=== PATIENT | male | born 1950 | race Caucasian/White ===

== ENCOUNTER 2017-09-24 15:55 | Inpatient (IN) | payer MEDICARE, OTHER ==
[~2017-09-24] VITALS: Ht 180.3 cm; Wt 104.1 kg
[2017-09-24 16:02] VITALS: BP 85/56; PULSE 80; RESP 20; TEMP 97.4; O2SAT 94
[2017-09-24] MEDS ORDERED: SODIUM CHLOR 0.9% 1000 ML INJ 1,000 ML IV SCH (16:27)
[2017-09-24] MEDS ORDERED: CETI10CH CHEW (16:29)
[2017-09-24] MEDS ORDERED: ASPI81CH6 PO (16:29)
[2017-09-24] MEDS ORDERED: ZOFR4TAB3 SL (16:29)
[2017-09-24] MEDS ORDERED: PARO20TA2 PO (16:29)
[2017-09-24] MEDS ORDERED: DONE10TA7 PO (16:29)
[2017-09-24] MEDS ORDERED: ATOR10TA15 PO (16:29)
[2017-09-24] MEDS ORDERED: VALS160T4 PO (16:29)
[2017-09-24] MEDS ORDERED: COQ-30CA2 PO (16:29)
[2017-09-24] MEDS ORDERED: PANTOPRAZOLE SODIUM 40 MG VIAL IVP ONE (16:30)
[2017-09-24] MEDS ORDERED: ONDANSETRON HCL 4 MG/2 ML VIAL IVP ONE (16:30)
[2017-09-24] MEDS ORDERED: SODIUM CHLORIDE 0.9% FLUSH 10 ML FLUSH IV FLUSH PRN ×2 (16:30→20:00)
[2017-09-24 16:40] VITALS: O2SAT 95
[2017-09-24 16:45] LABS: AUTOMATED NEUTROPHIL # 9.3 TH/MM3 (1.8-7.7); BASOPHIL # 0.2 TH/MM3 (0-0.2); BASOPHIL % 1.7 % (0.0-2.0); EOSINOPHIL # 0.1 TH/MM3 (0-0.4); EOSINOPHIL % 0.6 % (0.0-4.0); HEMATOCRIT 51.9 % (39.0-51.0); HEMOGLOBIN 17.2 GM/DL (13.0-17.0); LYMPH % 11.4 % (9.0-44.0); LYMPHOCYTE # 1.4 TH/MM3 (1.0-4.8); MEAN CORPUSCULAR HEMOGLOBIN 31.5 PG (27.0-34.0); MEAN CORPUSCULAR HGB CONC 33.1 % (32.0-36.0); MEAN PLATELET VOLUME 8.6 FL (7.0-11.0); MONO % 11.1 % (0.0-8.0); MONOCYTE # 1.4 TH/MM3 (0-0.9); NEUT % 75.2 % (16.0-70.0); PLATELET COUNT 218 TH/MM3 (150-450); RED BLOOD COUNT 5.46 MIL/MM3 (4.50-5.90); RED CELL DISTRIBUTION WIDTH 13.3 % (11.6-17.2); WHITE BLOOD COUNT 12.4 TH/MM3 (4.0-11.0)
[2017-09-24 16:53] LABS: CHLORIDE 95 MEQ/L (98-107); SODIUM (NA) 135 MEQ/L (136-145)
[2017-09-24 16:56] LABS: CALCIUM 9.1 MG/DL (8.5-10.1); INTERNATIONAL NORMALIZED RATIO 1.1 RATIO
[2017-09-24 16:57] LABS: BICARBONATE 30.1 MEQ/L (21.0-32.0); BLOOD UREA NITROGEN 33 MG/DL (7-18); GLUCOSE,RANDOM 151 MG/DL (74-106)
[2017-09-24 17:00] LABS: ALT (GPT) 53 U/L (12-78); AST (GOT) 30 U/L (15-37); GLOMERULAR FILTRATION RATE 24 ML/MIN (>89)
[2017-09-24 17:01] LABS: TOTAL BILIRUBIN ADULT 0.9 MG/DL (0.2-1.0); TOTAL PROTEIN 8.6 GM/DL (6.4-8.2)
[2017-09-24 17:03] LABS: ALKALINE PHOSPHATASE 85 U/L (45-117)
[2017-09-24 17:15] VITALS: BP 92/60; PULSE 81; RESP 14; O2SAT 94
--- NOTE | 2017-09-24 17:59 | RADRPT ---
EXAM DATE/TIME: 09/24/2017 17:38 [place] COMPARISON: No previous studies available for comparison. INDICATIONS : Diffuse abdominal pain. Nausea, vomiting and diarrhea. ORAL CONTRAST: No oral contrast ingested. RADIATION DOSE: 20.90 CTDIvol (mGy) MEDICAL HISTORY : Dementia. Hypertension. SURGICAL HISTORY : None. ENCOUNTER: Initial ACUITY: 4 - 6 days PAIN SCALE: 5/10 LOCATION: Diffuse abdomen. TECHNIQUE: Volumetric scanning of the abdomen and pelvis was performed. Using automated exposure control and ad justment of the mA and/or kV according to patient size, radiation dose was kept as low as reasonably achievable to obtain optimal diagnostic quality images. DICOM format image data is available electro nically for review and comparison. FINDINGS: LOWER LUNGS: The visualized lower lungs are clear. LIVER: Homogeneous density without lesion. There is no dilation of the biliary tree. No calcified gallston es. SPLEEN: Normal size without lesion. PANCREAS: Within normal limits. KIDNEYS: Normal in size and shape. There is no mass, stone, or hydronephrosis. ADRENAL GLANDS: Within normal limits. VASCULAR: There is no aortic aneurysm. BOWEL/MESENTERY: The stomach, small bowel, and colon demonstrate no acute abnormality. There is no free intraperitone al air or fluid. Some fluid lot filled loops of without evidence of wall thickening or obstruction ABDOMINAL WALL: Within normal limits. RETROPERITONEUM: There is no lymphadenopathy. BLADDER: No wall thickening or mass. REPRODUCTIVE: Within normal limits. INGUINAL: There is no lymphadenopathy or hernia. MUSCULOSKELETAL: Within normal limits for patient age. CONCLUSION: Fluid-filled loops of small bowel without evidence of obstructing mass. No obvious wall thickening or pneumatosis. A few benign-appearing cysts in the liver. Joe Salcedo MD on September 24, 2017 at 17:55 Board Certified Radiologist. This report was verified electronically.
[2017-09-24] MEDS ORDERED: METOCLOPRAMIDE INJ 10 MG in SODIUM CHLORIDE 0.9% INJ 50 ML IV ONE (18:15)
[2017-09-24] MEDS ORDERED: SODIUM CHLOR 0.9% 1000 ML INJ 1,000 ML IV ONE (18:15)
[2017-09-24] MEDS ORDERED: PROCHLORPERAZINE INJ 10 MG/2 ML VIAL IV PUSH ONE (19:45)
[2017-09-24 19:48] VITALS: BP 147/75; PULSE 75; RESP 16; TEMP 98.7; O2SAT 100
--- NOTE | 2017-09-24 19:49 | PD ---
HPI Chief Complaint: GI Complaint Time Seen by Provider: 16:12 Travel History International Travel<30 days: No Contact w/Intl Traveler<30days: No Traveled to known affect area: No History of Present Illness HPI Patient is a 67-year-old male who comes in complaining of nausea and vomiting and diarrhea. Patient says this has been going on for the past 5 days. He went to see his primary care doctor today who prescribed Zofran for him and told him that he needed to be able to drink 2 L of fluid before the day was over. He did take the Zofran and continued to vomit, so his brought him into the emergency department. He complains of pain to his upper abdomen. He denies any recent antibiotic use or recent travel. He does feel that his abdomen is distended. He denies any surgeries to his abdomen. Severity is moderate. PFSH Past Medical History Hx Anticoagulant Therapy: Yes (ASA) High Cholesterol: Yes Cerebrovascular Accident: Yes Dementia: Yes Hypertension: Yes Tetanus Vaccination: > 5 Years Influenza Vaccination: Yes ?: Not Past Surgical History Joint Replacement: Yes (Rt. knee ) Social History Alcohol Use: No Tobacco Use: No Substance Use: No Allergies-Medications (Allergen,Severity, Reaction): Coded Allergies: No Known Allergies (Unverified , 09/24/17) Reported Meds & Prescriptions Reported Meds & Active Scripts Active Reported Aspirin Low Dose (Aspirin) 81 Mg Chew 2 Tab PO DAILY Cetirizine (Cetirizine HCl) 10 Mg Chew 10 Mg CHEW DAILY Atorvastatin (Atorvastatin Calcium) 10 Mg Tab 10 Mg PO HS Coq-10 (Coenzyme Q10 (Ubidecarenone)) 30 Mg Cap 1 Cap PO DAILY Zofran Odt (Ondansetron Odt) 4 Mg Tab 4 Mg SL Q8HR PRN Paroxetine (Paroxetine HCl) 20 Mg Tab 20 Mg PO DAILY Valsartan-Hydrochlorothiazide 160-12.5 Mg Tab 1 Tab PO DAILY Donepezil 10 Mg Tab 10 Mg PO DAILY Review of Systems Except as stated in HPI: all other systems reviewed are Neg General / Constitutional: No: Fever, Chills HENT: No: Headaches, Lightheadedness Cardiovascular: No: Chest Pain or Discomfort Respiratory: No: Shortness of Breath Gastrointestinal: Positive: Nausea, Vomiting, Diarrhea, Abdominal Pain Genitourinary: Positive: Decreased Urinary Output Skin: No Rash, No Change in Pigmentation Neurologic: No: Weakness, Dizziness Physical Exam Narrative GENERAL: Awake and alert, in no acute distress. SKIN: Focused skin assessment warm/dry. HEAD: Atraumatic. Normocephalic. EYES: Pupils equal and round. No scleral icterus. ENT: Mucous membranes pink and moist. NECK: Trachea midline. No JVD. CARDIOVASCULAR: Regular rate and rhythm. No murmur appreciated. RESPIRATORY: No accessory muscle use. Clear to auscultation. Breath sounds equal bilaterally. GASTROINTESTINAL: Abdomen with mild distention, tender to palpation of the upper area. No rebound or guarding. Hypoactive bowel sounds. MUSCULOSKELETAL: No obvious deformities. No clubbing. No cyanosis. No edema. NEUROLOGICAL: Awake and alert. No obvious cranial nerve deficits. Motor grossly within normal limits. Normal speech. PSYCHIATRIC: Appropriate mood and affect; insight and judgment normal. Data Data Last Documented VS Vital Signs Date Time Temp Pulse Resp B/P (MAP) Pulse Ox O2 Delivery O2 Flow Rate FiO2 09/24/17 19:48 98.7 75 16 147/75 (99) 100 Room Air Orders Orders Complete Blood Count With Diff (09/24/17 16:27) Comprehensive Metabolic Panel (09/24/17 16:27) Lipase (09/24/17 16:27) Lactic Acid (09/24/17 16:27) Prothrombin Time / Inr (Pt) (09/24/17 16:27) Act Partial Throm Time (Ptt) (09/24/17 16:27) Urinalysis - C+S If Indicated (09/24/17 16:27) Iv Access Insert/Monitor (09/24/17 16:27) Ecg Monitoring (09/24/17 16:27) Oximetry (09/24/17 16:27) Ondansetron Inj (Zofran Inj) (09/24/17 16:30) Pantoprazole Inj (Protonix Inj) (09/24/17 16:30) Sodium Chlor 0.9% 1000 Ml Inj (Ns 1000 M (09/24/17 16:27) Sodium Chloride 0.9% Flush (Ns Flush) (09/24/17 16:30) Ct Abd/Pel W/O Iv Contrast (09/24/17 ) Sodium Chlor 0.9% 1000 Ml Inj (Ns 1000 M (09/24/17 18:15) Metoclopramide Inj (Reglan Inj) (09/24/17 18:15) Prochlorperazine Inj (Compazine Inj) (09/24/17 19:45) Morphine Inj (Morphine Inj) (09/24/17 20:00) Admit Order (Ed Use Only) (09/24/17 ) Potassium Chlor 20 Meq Premix (Kcl 20 Me (09/24/17 20:00) Admit To Inpatient (09/24/17 ) Vital Signs (Adult) Q4H (09/24/17 19:47) Activity Oob Ad Avelina (09/24/17 19:47) Intake + Output LAURA.QSHIFT (09/24/17 19:47) Diet Regular Basic (09/25/17 Breakfast) Sodium Chlor 0.9% 1000 Ml Inj (Ns 1000 M (09/24/17 19:47) Sodium Chloride 0.9% Flush (Ns Flush) (09/24/17 20:00) Sodium Chloride 0.9% Flush (Ns Flush) (09/24/17 21:00) Ondansetron Inj (Zofran Inj) (09/24/17 20:00) Comprehensive Metabolic Panel (09/25/17 06:00) Complete Blood Count With Diff (09/25/17 06:00) Scd Bilateral/Knee High LAURA.BID (09/24/17 19:47) Epifanio Bilateral/Knee High LAURA.QSHIFT (09/24/17 19:49) Acetaminophen (Tylenol) (09/24/17 20:00) Acetamin-Hydrocod 325-5 Mg ([place] 5-325 (09/24/17 20:00) Morphine Inj (Morphine Inj) (09/24/17 20:00) Docusate Sodium-Senna (Yvonne-Colace) (09/24/17 21:00) Magnesium Hydroxide Liq (Milk Of Magnesi (09/24/17 20:00) Sennosides (Senokot) (09/24/17 20:00) Bisacodyl Supp (Dulcolax Supp) (09/24/17 20:00) Lactulose Liq (Lactulose Liq) (09/24/17 20:00) Inpatient Certification (4/27/18 ) Prochlorperazine Inj (Compazine Inj) (09/24/17 20:00) Lactic Acid (09/25/17 06:00) Labs Laboratory Tests Test 09/24/17 16:40 White Blood Count 12.4 TH/MM3 Red Blood Count 5.46 MIL/MM3 Hemoglobin 17.2 GM/DL Hematocrit 51.9 % Mean Corpuscular Volume 95.0 FL Mean Corpuscular Hemoglobin 31.5 PG Mean Corpuscular Hemoglobin Concent 33.1 % Red Cell Distribution Width 13.3 % Platelet Count 218 TH/MM3 Mean Platelet Volume 8.6 FL Neutrophils (%) (Auto) 75.2 % Lymphocytes (%) (Auto) 11.4 % Monocytes (%) (Auto) 11.1 % Eosinophils (%) (Auto) 0.6 % Basophils (%) (Auto) 1.7 % Neutrophils # (Auto) 9.3 TH/MM3 Lymphocytes # (Auto) 1.4 TH/MM3 Monocytes # (Auto) 1.4 TH/MM3 Eosinophils # (Auto) 0.1 TH/MM3 Basophils # (Auto) 0.2 TH/MM3 CBC Comment DIFF FINAL Differential Comment Prothrombin Time 11.0 SEC Prothromb Time International Ratio 1.1 RATIO Activated Partial Thromboplast Time 26.8 SEC Blood Urea Nitrogen 33 MG/DL Creatinine 2.70 MG/DL Random Glucose 151 MG/DL Total Protein 8.6 GM/DL Albumin 4.0 GM/DL Calcium Level 9.1 MG/DL Alkaline Phosphatase 85 U/L Aspartate Amino Transf (AST/SGOT) 30 U/L Alanine Aminotransferase (ALT/SGPT) 53 U/L Total Bilirubin 0.9 MG/DL Sodium Level 135 MEQ/L Potassium Level 3.0 MEQ/L Chloride Level 95 MEQ/L Carbon Dioxide Level 30.1 MEQ/L Anion Gap 10 MEQ/L Estimat Glomerular Filtration Rate 24 ML/MIN Lactic Acid Level 2.2 mmol/L Lipase 201 U/L MDM Medical Decision Making Medical Screen Exam Complete: Yes Emergency Medical Condition: Yes Differential Diagnosis Bowel obstruction versus ileus versus gastroenteritis versus dehydration versus electrolyte abnormality Narrative Course Patient is a 67-year-old male who comes in complaining of nausea, vomiting, diarrhea. Exam shows a tender abdomen that is mildly distended. IV established , labs sent. Labs show a creatinine of 2.4, per this is new for him. CT abdomen pelvis performed shows fluid-filled loops of bowel, no obvious obstruction. Last 24 hours Impressions Abdomen/Pelvis CT 09/24/17 0000 Signed Impressions: Service Date/Time: Sunday, September 24, 2017 17:38 - CONCLUSION: Fluid-filled loops of small bowel without evidence of obstructing mass. No obvious wall thickening or pneumatosis. A few benign-appearing cysts in the liver. Joe Salcedo MD Patient given 2 L of fluid without any urination. Given Zofran, Reglan with continued nausea. Given a dose of Compazine and morphine. Admitted for further management. Diagnosis Primary Impression: Nausea, vomiting and diarrhea Additional Impression: Acute kidney injury Admitting Information Admitting Physician Requests: Admit Joselyn Cain MD Sep 24, 2017 19:49
[2017-09-24] MEDS ORDERED: MORPHINE SULFATE 2 MG/ML SYRINGE IV PUSH PRN (20:00)
[2017-09-24] MEDS ORDERED: PROCHLORPERAZINE INJ 10 MG/2 ML VIAL IV PUSH PRN (20:00)
[2017-09-24] MEDS ORDERED: MORPHINE SULFATE 4 MG/ML INJ IV PUSH ONE (20:00)
[2017-09-24] MEDS ORDERED: ONDANSETRON HCL 4 MG/2 ML VIAL IVP PRN (20:00)
[2017-09-24] MEDS ORDERED: MAGNESIUM HYDROXIDE SUSP 30 ML CUP PO PRN (20:00)
[2017-09-24] MEDS ORDERED: ACETAMINOPHEN 325 MG TAB PO PRN (20:00)
[2017-09-24] MEDS ORDERED: LACTULOSE SYRUP 20 GM/30 ML CUP PO PRN (20:00)
[2017-09-24] MEDS ORDERED: BISACODYL 10 MG SUPP RECTAL PRN (20:00)
[2017-09-24] MEDS ORDERED: SENNOSIDES 8.6 MG TAB PO PRN (20:00)
[2017-09-24] MEDS ORDERED: ACETAMINOPHEN/HYDROcodone 325 MG/5 MG TAB PO PRN (20:00)
[2017-09-24] MEDS: SODIUM CHLOR 0.9% 1000 ML INJ 1,000 ML IV SCH (20:20)
[2017-09-24] MEDS: POTASSIUM CHLOR 20 MEQ PREMIX 100 ML IV SCH ×2 (20:20→23:00)
[2017-09-24] MEDS: DOCUSATE SODIUM 50 MG/SENNA 8.6 MG TAB PO SCH (21:00)
[2017-09-24] MEDS: SODIUM CHLORIDE 0.9% FLUSH 10 ML FLUSH IV FLUSH SCH (21:00)
[2017-09-24 21:28] VITALS: BP 135/75
[2017-09-24 21:48] VITALS: BP 129/63; PULSE 83; RESP 20; TEMP 96.3; O2SAT 93
[2017-09-25] VITALS: BP 120/71; PULSE 92; RESP 20; TEMP 97.6; O2SAT 95
[2017-09-25] MEDS: SODIUM CHLOR 0.9% 1000 ML INJ 1,000 ML IV SCH (05:47)
[2017-09-25 06:07] LABS: BILIRUBIN, URINE NEG (NEG); BLOOD, URINE NEG (NEG); GLUCOSE,URINE NEG (NEG); KETONE, URINE NEG (NEG); NITRITE,URINE NEG (NEG); PH, URINE 5.5 (5.0-8.5); URINE LEUKOCYTE ESTERASE NEG (NEG)
[2017-09-25 06:08] LABS: URINE COLOR AMBER (YELLW/STRAW)
[2017-09-25 06:12] LABS: RBC, URINE 0-2 /hpf (0-3); WBC, URINE 0-2 /hpf (0-5)
[2017-09-25 06:13] LABS: SQUAMOUS EPITHELIAL CELL URINE > 8 /hpf (0-5)
[2017-09-25 06:28] LABS: BASOPHIL # 0.1 TH/MM3 (0-0.2); BASOPHIL % 0.7 % (0.0-2.0); EOSINOPHIL # 0.2 TH/MM3 (0-0.4); EOSINOPHIL % 1.9 % (0.0-4.0); HEMATOCRIT 43.9 % (39.0-51.0); HEMOGLOBIN 14.9 GM/DL (13.0-17.0); LYMPH % 14.6 % (9.0-44.0); LYMPHOCYTE # 1.5 TH/MM3 (1.0-4.8); MEAN CELL VOLUME 93.1 FL (80.0-100.0); MEAN CORPUSCULAR HEMOGLOBIN 31.5 PG (27.0-34.0); MEAN CORPUSCULAR HGB CONC 33.9 % (32.0-36.0); MEAN PLATELET VOLUME 8.6 FL (7.0-11.0); MONO % 13.9 % (0.0-8.0); MONOCYTE # 1.4 TH/MM3 (0-0.9); NEUT % 68.9 % (16.0-70.0); PLATELET COUNT 158 TH/MM3 (150-450); RED BLOOD COUNT 4.72 MIL/MM3 (4.50-5.90); RED CELL DISTRIBUTION WIDTH 13.1 % (11.6-17.2); WHITE BLOOD COUNT 10.2 TH/MM3 (4.0-11.0)
[2017-09-25 06:42] LABS: CHLORIDE 101 MEQ/L (98-107); SODIUM (NA) 138 MEQ/L (136-145)
[2017-09-25 06:56] LABS: ALBUMIN 3.3 GM/DL (3.4-5.0); ALKALINE PHOSPHATASE 66 U/L (45-117); ALT (GPT) 40 U/L (12-78); AST (GOT) 23 U/L (15-37); BICARBONATE 29.7 MEQ/L (21.0-32.0); BLOOD UREA NITROGEN 38 MG/DL (7-18); CALCIUM 7.9 MG/DL (8.5-10.1); GLOMERULAR FILTRATION RATE 38 ML/MIN (>89); GLUCOSE,RANDOM 125 MG/DL (74-106); TOTAL BILIRUBIN ADULT 0.9 MG/DL (0.2-1.0); TOTAL PROTEIN 7.1 GM/DL (6.4-8.2)
[2017-09-25 08:00] VITALS: BP 135/78; PULSE 79; RESP 20; TEMP 98.7; O2SAT 95
[2017-09-25] MEDS: DOCUSATE SODIUM 50 MG/SENNA 8.6 MG TAB PO SCH (08:11)
[2017-09-25] MEDS: SODIUM CHLORIDE 0.9% FLUSH 10 ML FLUSH IV FLUSH SCH (08:12)
[2017-09-25 10:33] VITALS: RESP 18
--- NOTE | 2017-09-25 11:20 | HHI.HP ---
[facility] Rajendra Johns Jr, DO Admission Diagnosis intractable vomiting, AMAURY Diagnoses: (1) Nausea, vomiting and diarrhea Diagnosis: Principal (2) Acute kidney injury Diagnosis: Principal Chief Complaint: Nausea, vomiting, diarrhea Travel History International Travel<30 Days: No Contact w/Intl Traveler <30 Da: No Traveled to Known Affected Are: No History of Present Illness 67-year-old male with known history of hypertension, hyperlipidemia, CVA, dementia who presented to the hospital because of 5 day history of uncontrollable nausea, vomiting, diarrhea, abdominal pain. Patient states that his symptoms started on Wednesday of this week when he started developing some abdominal pain across his abdomen which he described as 8/10 on a pain scale. He cannot differentiate whether the pain came first then the vomiting or the vomiting then the pain. However he continued to do that throughout the week he went to his primary medical doctor's office and they did give him some Zofran. They notified him that his blood pressure was a little low and told him to go home and drink at least 2 L of fluid. Patient did not improve when he got home. Was only drink about 1 cup of fluid. Still have a significant nausea and vomiting. Because of that the patient came to emergency department for evaluation. Patient was found to have acute kidney injury secondary to dehydration. Is recommended by the ER physician that the patient be evaluated in the hospital. Upon evaluating patient this morning he is doing quite well. He is sitting in chair staying there is no longer experience any abdominal pain. He has ate breakfast this morning without any recurrent abdominal pain, nausea, vomiting or diarrhea. Patient is hoping that he can go home today since he is no longer experiencing any nausea, vomiting or diarrhea. Patient does have hiccups at this time. Patient denies any hematemesis, hematochezia, melena, any abdominal pain at this time. Denies any shortness of breath, dyspnea Review of Systems Gastrointestinal: COMPLAINS OF: Abdominal pain, Diarrhea, Nausea, Vomiting Except as stated in HPI: all other systems reviewed are Neg Past Family Social History Past Medical History Hypertension Hyperlipidemia History of CVA Dementia Past Surgical History Right knee replacement Kidney stone removal Lithotripsy Reported Medications Reported Meds & Active Scripts Active Reported Aspirin Low Dose (Aspirin) 81 Mg Chew 2 Tab PO DAILY Cetirizine (Cetirizine HCl) 10 Mg Chew 10 Mg CHEW DAILY Atorvastatin (Atorvastatin Calcium) 10 Mg Tab 10 Mg PO HS Coq-10 (Coenzyme Q10 (Ubidecarenone)) 30 Mg Cap 1 Cap PO DAILY Zofran Odt (Ondansetron Odt) 4 Mg Tab 4 Mg SL Q8HR PRN Paroxetine (Paroxetine HCl) 20 Mg Tab 20 Mg PO DAILY Valsartan-Hydrochlorothiazide 160-12.5 Mg Tab 1 Tab PO DAILY Donepezil 10 Mg Tab 10 Mg PO DAILY Allergies: Coded Allergies: No Known Allergies (Unverified , 09/24/17) Family History Reviewed and significant for mother with dementia. Father with lung and brain cancer Social History Patient used to smoke cigars, however he no longer using any tobacco, alcohol or illicit drug Physical Exam Vital Signs Vital Signs Date Time Temp Pulse Resp B/P (MAP) Pulse Ox O2 Delivery O2 Flow Rate FiO2 09/25/17 10:33 18 09/25/17 08:00 98.7 79 20 135/78 (97) 95 09/25/17 00:00 97.6 92 20 120/71 (87) 95 09/24/17 21:48 96.3 83 20 129/63 (85) 93 09/24/17 21:28 90 18 135/75 (95) 100 09/24/17 19:48 98.7 75 16 147/75 (99) 100 Room Air 09/24/17 17:15 81 14 92/60 (71) 94 Room Air 09/24/17 16:40 95 Room Air 09/24/17 16:02 97.4 80 20 85/56 (66) 94 Physical Exam GENERAL: Well-developed, well-nourished, in no acute distress. alert and orientated HEENT: Head is normocephalic without any lesions or masses noted. Facial features are symmetric. Eyes: Pupils equal round reactive to light. Extraocular muscles are intact. Conjunctivae were clear. Oropharyngeal: Pharynx without any erythema edema. Tongue is midline without deviation. Buccal mucosa is moist without any masses or lesions NECK: Supple without any masses. Trachea midline no deviation. No JVD, no bruits are appreciated CARDIAC: Regular rhythm, regular rate. S1/S2 are heard. No murmurs gallops or rubs. LUNGS: Clear to auscultation bilaterally. No wheeze, rhonchi or rales. No use of accessory muscles on inspiration or expiration. ABDOMEN: Soft, nontender. Nondistended. Bowel sounds heard in all 4 quadrants. No organomegaly or masses. Negative rebound, negative guarding EXTREMITIES: No edema, pulses are equal bilaterally. No cyanosis or clubbing NEUROLOGY: Mood and affect appear appropriate. Cranial nerves II through XII grossly intact. Muscle strength 5/5 in upper and lower extremities bilaterally. Deep tendon reflexes are 2+ in upper and lower extremities bilaterally. Laboratory Laboratory Tests Test 09/24/17 16:40 09/25/17 05:45 09/25/17 06:18 White Blood Count 12.4 10.2 Red Blood Count 5.46 4.72 Hemoglobin 17.2 14.9 Hematocrit 51.9 43.9 Mean Corpuscular Volume 95.0 93.1 Mean Corpuscular Hemoglobin 31.5 31.5 Mean Corpuscular Hemoglobin Concent 33.1 33.9 Red Cell Distribution Width 13.3 13.1 Platelet Count 218 158 Mean Platelet Volume 8.6 8.6 Neutrophils (%) (Auto) 75.2 68.9 Lymphocytes (%) (Auto) 11.4 14.6 Monocytes (%) (Auto) 11.1 13.9 Eosinophils (%) (Auto) 0.6 1.9 Basophils (%) (Auto) 1.7 0.7 Neutrophils # (Auto) 9.3 7.0 Lymphocytes # (Auto) 1.4 1.5 Monocytes # (Auto) 1.4 1.4 Eosinophils # (Auto) 0.1 0.2 Basophils # (Auto) 0.2 0.1 CBC Comment DIFF FINAL DIFF FINAL Differential Comment Prothrombin Time 11.0 Prothromb Time International Ratio 1.1 Activated Partial Thromboplast Time 26.8 Blood Urea Nitrogen 33 38 Creatinine 2.70 1.80 Random Glucose 151 125 Total Protein 8.6 7.1 Albumin 4.0 3.3 Calcium Level 9.1 7.9 Alkaline Phosphatase 85 66 Aspartate Amino Transf (AST/SGOT) 30 23 Alanine Aminotransferase (ALT/SGPT) 53 40 Total Bilirubin 0.9 0.9 Sodium Level 135 138 Potassium Level 3.0 3.3 Chloride Level 95 101 Carbon Dioxide Level 30.1 29.7 Anion Gap 10 7 Estimat Glomerular Filtration Rate 24 38 Lactic Acid Level 2.2 1.6 Lipase 201 Urine Color HENRRY Urine Turbidity SL CLOUDY Urine pH 5.5 Urine Specific [place] GREATER/EQUAL 1.030 Urine Protein 100 Urine Glucose (UA) NEG Urine Ketones NEG Urine Occult Blood NEG Urine Nitrite NEG Urine Bilirubin NEG Urine Urobilinogen 0.2 Urine Leukocyte Esterase NEG Urine RBC 0-2 Urine WBC 0-2 Urine Squamous Epithelial Cells > 8 Urine Bacteria NONE Microscopic Urinalysis Comment CULT NOT INDICATED Result Diagram: 09/25/17 0618 09/25/17 0618 Imaging Last Impressions Abdomen/Pelvis CT 09/24/17 0000 Signed Impressions: Service Date/Time: Sunday, September 24, 2017 17:38 - CONCLUSION: Fluid-filled loops of small bowel without evidence of obstructing mass. No obvious wall thickening or pneumatosis. A few benign-appearing cysts in the liver. Joe Salcedo MD Caprini VTE Risk Assessment Caprini VTE Risk Assessment: Mod/High Risk (score >= 2) Caprini Risk Assessment Model Point Value = 1 Point Value = 2 Point Value = 3 Point Value = 5 Age 41-60 Minor surgery BMI > 25 kg/m2 Swollen legs Varicose veins or History of unexplained or recurrent spontaneous Oral contraceptives or hormone replacement Sepsis (< 1 month) Serious lung disease, including pneumonia (< 1 month) Abnormal pulmonary function Acute myocardial infarction Congestive heart failure (< 1 month) History of inflammatory bowel disease Medical patient at bed rest Age 61-74 Arthroscopic surgery Major open surgery (> 45 min) Laparoscopic surgery (> 45 min) Malignancy Confined to bed (> 72 hours) Immobilizing plaster cast Central venous access Age >= 75 History of VTE Family history of VTE Factor V Leiden Prothrombin [id number] Lupus anticoagulant Anticardiolipin antibodies Elevated serum homocysteine Heparin-induced thrombocytopenia Other congenital or acquired thrombophilia Stroke (< 1 month) Elective arthroplasty Hip, pelvis, or leg fracture Acute spinal cord injury (< 1 month) Prophylaxis Regimen Total Risk Factor Score Risk Level Prophylaxis Regimen 0-1 Low Early ambulation 2 Moderate Order ONE of the following: *Sequential Compression Device (SCD) *Heparin 5000 units SQ BID 3-4 Higher Order ONE of the following medications: *Heparin 5000 units SQ TID *Enoxaparin/Lovenox 40 mg SQ daily (WT < 150 kg, CrCl > 30 mL/min) *Enoxaparin/Lovenox 30 mg SQ daily (WT < 150 kg, CrCl > 10-29 mL/min) *Enoxaparin/Lovenox 30 mg SQ BID (WT < 150 kg, CrCl > 30 mL/min) AND/OR *Sequential Compression Device (SCD) 5 or more Highest Order ONE of the following medications: *Heparin 5000 units SQ TID (Preferred with Epidurals) *Enoxaparin/Lovenox 40 mg SQ daily (WT < 150 kg, CrCl > 30 mL/min) *Enoxaparin/Lovenox 30 mg SQ daily (WT < 150 kg, CrCl > 10-29 mL/min) *Enoxaparin/Lovenox 30 mg SQ BID (WT < 150 kg, CrCl > 30 mL/min) AND *Sequential Compression Device (SCD) Assessment and Plan Assessment and Plan Abdominal pain with nausea, vomiting, diarrhea, resolved -Laboratory studies show signs of dehydration with acute kidney injury, concentration -CT scan indicated Fluid-filled loops of small bowel without evidence of obstructing mass. No obvious wall thickening or pneumatosis. -Continue IV fluid -Zofran as needed -Advance diet as tolerated -Patient has significantly improved and is requesting to go home today Acute kidney injury -Unknown if patient has any chronic kidney disease -Renal functions are trending down nicely on IV fluid -Follow-up renal function continues to show improvement Hypertension, hyperlipidemia, history of CVA -Resume home medications Dementia -Resume home medication DVT prevention -Sequential compression devices Discharge disposition Discharge home in stable condition Activity: Ad shayne. Diet: Healthy heart diet Medication per medication reconciliation Follow-up with primary medical doctor in 1 week Sam Young Sep 25, 2017 11:20
--- NOTE | 2017-09-25 11:22 | HHI.DCPOC ---
Discharge Care Plan Diagnosis: (1) Nausea, vomiting and diarrhea (2) Acute kidney injury Goals to Promote Your Health * To prevent worsening of your condition and complications * To maintain your health at the optimal level Directions to Meet Your Goals Take your medications as prescribed Follow your dietary instruction Follow activity as directed Keep your appointments as scheduled Take your immunizations and boosters as scheduled If your symptoms worsen call your PCP, if no PCP go to Urgent Care Center or Emergency Room Smoking is Dangerous to Your Health. Avoid second hand smoke Call the 24-hour hour crisis hotline for domestic abuse at Sam Young Sep 25, 2017 11:22
[2017-09-25 12:00] VITALS: BP 136/71; PULSE 95; RESP 48; TEMP 98.4; O2SAT 95
[2017-09-25] MEDS ORDERED: DONEPEZIL HCL 5 MG TAB PO SCH (12:00)
[2017-09-25] MEDS ORDERED: PARoxetine HCL 20 MG TAB PO SCH (12:00)
[2017-09-25 13:59] LABS: CALCIUM 7.7 MG/DL (8.5-10.1)
[2017-09-25] MEDS ORDERED: POTASSIUM CHLORIDE 20 MEQ CONTROLLED RELEASE TAB PO ONE (14:00)
[2017-09-25 14:03] LABS: CREATININE 1.4 MG/DL (0.60-1.30)
[2017-09-25] MEDS ORDERED: ATORVASTATIN 10 MG TAB PO SCH (21:00)
[2017-09-26] MEDS ORDERED: ASPIRIN 81 MG CHEW TAB PO SCH (09:00)
== END 2017-09-25 14:42 | disposition home or self-care (01) | DRG 684 ==
LOC: EDSEX 15:55 → PHED 15:55 → PHEDA 19:49 → PH3A 21:21
PROVIDERS: ADMIT Hospitalist; ATTEND Hospitalist
DX: N17.9 Acute kidney failure, unspecified (principal); E86.0 Dehydration; F03.90 Unspecified dementia, unspecified severity, without behavioral disturbance, psychotic disturbance, mood disturbance, and anxiety; R19.7 Diarrhea, unspecified; R11.2 Nausea with vomiting, unspecified; I10 Essential (primary) hypertension; E78.00 Pure hypercholesterolemia, unspecified; E78.5 Hyperlipidemia, unspecified; Z96.651 Presence of right artificial knee joint; Z86.73 Personal history of transient ischemic attack (TIA), and cerebral infarction without residual deficits; Z79.82 Long term (current) use of aspirin; Z87.442 Personal history of urinary calculi; Z87.891 Personal history of nicotine dependence; Z80.8 Family history of malignant neoplasm of other organs or systems
CPT/HCPCS: 74176; 80048; 80053; 81001; 83605; 83690; 85025; 85610; 85730; 96361; 96365; 96375; C9113; J0780; J2270; J2405; J2765; J3480; J7030

== ENCOUNTER 2017-09-29 15:37 | Inpatient (IN) | payer MEDICARE, OTHER ==
[2017-09-29] VITALS (12 sets, daily range): BP systolic 83–153; BP diastolic 47–83; PULSE 84–116; RESP 20–22; TEMP 97.6–99.9; O2SAT 94–98
[~2017-09-29] VITALS: Ht 180.3 cm; Wt 104.3 kg
[~2017-09-29 15:37] MED LIST: ASPI81CH6 PO; ATOR10TA15 PO; CETI10CH CHEW; COQ-30CA2 PO; DONE10TA7 PO; PARO20TA2 PO; VALS160T4 PO; ZOFR4TAB3 SL
[2017-09-29] MEDS ORDERED: SODIUM CHLOR 0.9% 1000 ML INJ 1,000 ML IV ONE ×2 (16:15→17:15)
[2017-09-29] MEDS ORDERED: ONDANSETRON HCL 4 MG/2 ML VIAL IV PUSH ONE (16:15)
--- NOTE | 2017-09-29 16:30 | PD ---
HPI Chief Complaint: GI Complaint Time Seen by Provider: 16:02 Travel History International Travel<30 days: No Contact w/Intl Traveler<30days: No Traveled to known affect area: No History of Present Illness HPI 67 y/o male presents with persistent nonbloody emesis and diarrhea since recently discharged from the hospital. He states he is also having intermittent abdominal pain. He denies any fever or other concurrent complaints. He received normal saline and Zofran with the ambulance team for nausea and low blood pressure. He states he has nausea medication at home and sometimes he is able to keep it down and then other times he throws it up. He notes multiple episodes of emesis. The ambulance team states in route he had bigeminy and one short run of V. tach. Patient denies any chest pain or chest pressure or other concurrent complaints. He denies specific modifying factors. Quality is nonbloody. Severity is multiple episodes. Duration is since discharge from hospital. PFSH Past Medical History Hx Anticoagulant Therapy: Yes (ASA) Cardiovascular Problems: Yes High Cholesterol: Yes Cerebrovascular Accident: Yes (MILD COGNITIVE RESIDUAL PER PATIENT) Dementia: Yes Diminished Hearing: No Genitourinary: Yes Hypertension: Yes Kidney Stones: Yes Musculoskeletal: No Neurologic: Yes (hx dementia ) Psychiatric: No Reproductive: No Respiratory: No Tetanus Vaccination: > 5 Years Influenza Vaccination: Yes Past Surgical History Genitourinary Surgery: Yes (LITHOTRIPSY) Joint Replacement: Yes (Rt. knee ) Social History Alcohol Use: No Tobacco Use: No Substance Use: No Allergies-Medications (Allergen,Severity, Reaction): Coded Allergies: No Known Allergies (Unverified , 09/29/17) Reported Meds & Prescriptions Reported Meds & Active Scripts Active Reported Aspirin Low Dose (Aspirin) 81 Mg Chew 2 Tab PO DAILY Cetirizine (Cetirizine HCl) 10 Mg Chew 10 Mg CHEW DAILY Atorvastatin (Atorvastatin Calcium) 10 Mg Tab 10 Mg PO HS Coq-10 (Coenzyme Q10 (Ubidecarenone)) 30 Mg Cap 1 Cap PO DAILY Zofran Odt (Ondansetron Odt) 4 Mg Tab 4 Mg SL Q8HR PRN Paroxetine (Paroxetine HCl) 20 Mg Tab 20 Mg PO DAILY Valsartan-Hydrochlorothiazide 160-12.5 Mg Tab 1 Tab PO DAILY Donepezil 10 Mg Tab 10 Mg PO DAILY Review of Systems Except as stated in HPI: all other systems reviewed are Neg Physical Exam Narrative GENERAL: 67-year-old male in no apparent distress SKIN: Focused skin assessment warm/dry. HEAD: Atraumatic. Normocephalic. EYES: Pupils equal and round. No scleral icterus. No injection or drainage. ENT: No nasal bleeding or discharge. Mucous membranes pink and moist. NECK: Trachea midline. CARDIOVASCULAR: Regular rate and rhythm. RESPIRATORY: No accessory muscle use. Clear to auscultation. Breath sounds equal bilaterally. GASTROINTESTINAL: Abdomen soft, non-tender, nondistended. MUSCULOSKELETAL: No obvious deformities. No clubbing. No cyanosis. NEUROLOGICAL: Awake and alert. Moves all extremities . Normal speech. PSYCHIATRIC: Appropriate mood and affect; insight and judgment normal. Data Data Last Documented VS Vital Signs Date Time Temp Pulse Resp B/P (MAP) Pulse Ox O2 Delivery O2 Flow Rate FiO2 09/29/17 16:35 95 20 153/57 (89) 97 Room Air 09/29/17 15:45 97.6 Orders Orders Sodium Chlor 0.9% 1000 Ml Inj (Ns 1000 M (09/29/17 16:15) Electrocardiogram (09/29/17 16:02) B-Type Natriuretic Peptide (09/29/17 16:02) Ckmb (Isoenzyme) Profile (09/29/17 16:02) Complete Blood Count With Diff (09/29/17 16:02) Comprehensive Metabolic Panel (09/29/17 16:02) Magnesium (Mg) (09/29/17 16:02) Prothrombin Time / Inr (Pt) (09/29/17 16:02) Act Partial Throm Time (Ptt) (09/29/17 16:02) Troponin I (09/29/17 16:02) Chest, Single Ap (09/29/17 16:02) Ecg Monitoring (09/29/17 16:02) Bilateral Bp Monitoring (09/29/17 16:02) Iv Access Insert/Monitor (09/29/17 16:02) Oximetry (09/29/17 16:02) Sodium Chloride 0.9% Flush (Ns Flush) (09/29/17 16:15) Ondansetron Inj (Zofran Inj) (09/29/17 16:15) Lactic Acid (09/29/17 16:02) Ct Abd/Pel W/O Iv Contrast (09/29/17 ) Urinalysis - C+S If Indicated (09/29/17 16:30) Sodium Chlor 0.9% 1000 Ml Inj (Ns 1000 M (09/29/17 17:15) Admit Order (Ed Use Only) (09/29/17 17:37) Labs Laboratory Tests Test 09/29/17 16:10 White Blood Count 14.2 TH/MM3 Red Blood Count 4.77 MIL/MM3 Hemoglobin 15.4 GM/DL Hematocrit 44.9 % Mean Corpuscular Volume 94.2 FL Mean Corpuscular Hemoglobin 32.3 PG Mean Corpuscular Hemoglobin Concent 34.2 % Red Cell Distribution Width 14.0 % Platelet Count 272 TH/MM3 Mean Platelet Volume 9.0 FL Neutrophils (%) (Auto) 74.1 % Lymphocytes (%) (Auto) 11.4 % Monocytes (%) (Auto) 12.2 % Eosinophils (%) (Auto) 1.7 % Basophils (%) (Auto) 0.6 % Neutrophils # (Auto) 10.5 TH/MM3 Lymphocytes # (Auto) 1.6 TH/MM3 Monocytes # (Auto) 1.7 TH/MM3 Eosinophils # (Auto) 0.2 TH/MM3 Basophils # (Auto) 0.1 TH/MM3 CBC Comment DIFF FINAL Differential Comment Prothrombin Time 12.0 SEC Prothromb Time International Ratio 1.2 RATIO Activated Partial Thromboplast Time 25.4 SEC Blood Urea Nitrogen 69 MG/DL Creatinine 5.98 MG/DL Random Glucose 113 MG/DL Total Protein 7.3 GM/DL Albumin 3.2 GM/DL Calcium Level 8.1 MG/DL Magnesium Level 2.9 MG/DL Alkaline Phosphatase 81 U/L Aspartate Amino Transf (AST/SGOT) 19 U/L Alanine Aminotransferase (ALT/SGPT) 35 U/L Total Bilirubin 0.6 MG/DL Sodium Level 134 MEQ/L Potassium Level 3.5 MEQ/L Chloride Level 103 MEQ/L Carbon Dioxide Level 16.6 MEQ/L Anion Gap 14 MEQ/L Estimat Glomerular Filtration Rate 9 ML/MIN Lactic Acid Level 1.8 mmol/L Total Creatine Kinase 70 U/L Troponin I LESS THAN 0.02 NG/ML B-Type Natriuretic Peptide 21 PG/ML MDM Medical Decision Making Medical Screen Exam Complete: Yes Emergency Medical Condition: Yes Medical Record Reviewed: Yes (Past history confirmed) Interpretation(s) CBC & BMP Diagram 09/29/17 16:10 Total Protein 7.3, Albumin 3.2 L, Calcium Level 8.1 L, Magnesium Level 2.9 H, Alkaline Phosphatase 81, Aspartate Amino Transf (AST/SGOT) 19, Alanine Aminotransferase (ALT/SGPT) 35, Total Bilirubin 0.6 Last 24 hours Impressions Chest X-Ray 09/29/17 1602 Signed Impressions: Service Date/Time: Friday, September 29, 2017 16:07 - CONCLUSION: No acute cardiopulmonary abnormality is identified. Kaushik Brooke MD Abdomen/Pelvis CT 09/29/17 0000 Signed Impressions: Service Date/Time: Friday, September 29, 2017 16:26 - CONCLUSION: 1. There continues to be some mild to moderate diffuse nonspecific dilatation of the small bowel. This pattern is not significantly changed compared to the prior examination. 2. Stable hepatic cysts. 3. No new or significant changes compared to the prior exam. Julien Pandey MD Differential Diagnosis Electrolyte abnormality, renal failure, dehydration Narrative Course We will check blood work, urinalysis, CT scan abdominal pelvis and dose with IV fluids and reevaluate ED workup shows significant worsening of renal failure without associated electrolyte abnormality. Patient without emesis here. Blood pressure improved with IV fluid hydration. Patient family updated and agree to admission. Physician Communication Physician Communication dr latham agrees to admit Diagnosis Primary Impression: Acute renal failure Qualified Codes: N17.9 - Acute kidney failure, unspecified Additional Impressions: Bigeminy Vomiting Qualified Codes: R11.10 - Vomiting, unspecified Admitting Information Admitting Physician Requests: Admit Ashley Rodriguez MD September 29, 2017 16:30
[2017-09-29 16:31] LABS: AUTOMATED NEUTROPHIL # 10.5 TH/MM3 (1.8-7.7); BASOPHIL # 0.1 TH/MM3 (0-0.2); BASOPHIL % 0.6 % (0.0-2.0); EOSINOPHIL # 0.2 TH/MM3 (0-0.4); EOSINOPHIL % 1.7 % (0.0-4.0); HEMATOCRIT 44.9 % (39.0-51.0); HEMOGLOBIN 15.4 GM/DL (13.0-17.0); LYMPH % 11.4 % (9.0-44.0); LYMPHOCYTE # 1.6 TH/MM3 (1.0-4.8); MEAN CELL VOLUME 94.2 FL (80.0-100.0); MEAN CORPUSCULAR HEMOGLOBIN 32.3 PG (27.0-34.0); MEAN CORPUSCULAR HGB CONC 34.2 % (32.0-36.0); MONO % 12.2 % (0.0-8.0); MONOCYTE # 1.7 TH/MM3 (0-0.9); NEUT % 74.1 % (16.0-70.0); PLATELET COUNT 272 TH/MM3 (150-450); RED BLOOD COUNT 4.77 MIL/MM3 (4.50-5.90); WHITE BLOOD COUNT 14.2 TH/MM3 (4.0-11.0)
--- NOTE | 2017-09-29 16:33 | RADRPT ---
EXAM DATE/TIME: 09/29/2017 16:07 [facility] COMPARISON: CT ABDOMEN & PELVIS W/O CONTRAST, September 24, 2017, 17:38. INDICATIONS : Vomiting. MEDICAL HISTORY : Hypertension. SURGICAL HISTORY : None. ENCOUNTER: Initial ACUITY: 2 days PAIN SCORE: 4/10 LOCATION: Epigastric. FINDINGS: Portable AP view of the chest demonstrates cardiac silhouette size at the upper limits for normal. EK G lines overlie the patient. No pleural effusion, airspace consolidation, or pneumothorax is identifi ed. Bones and soft tissues demonstrate no acute finding. CONCLUSION: No acute cardiopulmonary abnormality is identified. Kaushik Brooke MD on September 29, 2017 at 16:28 Board Certified Radiologist. This report was verified electronically.
--- NOTE | 2017-09-29 16:42 | RADRPT ---
EXAM DATE/TIME: 09/29/2017 16:26 [facility] COMPARISON: CT ABDOMEN & PELVIS W/O CONTRAST, September 24, 2017, 17:38. INDICATIONS : Nausea, vomiting ORAL CONTRAST: No oral contrast ingested. RADIATION DOSE: 24.9 CTDIvol (mGy) ; Patient body habitus MEDICAL HISTORY : Cerebrovascular disease. Dementia. Hypertension.Kidney stones SURGICAL HISTORY : Lithotripsy ENCOUNTER: Initial ACUITY: 1 week PAIN SCALE: 0/10 LOCATION: Bilateral Abdomen TECHNIQUE: Volumetric scanning of the abdomen and pelvis was performed. Using automated exposure control and ad justment of the mA and/or kV according to patient size, radiation dose was kept as low as reasonably achievable to obtain optimal diagnostic quality images. DICOM format image data is available electro nically for review and comparison. The lack of IV contrast limits the diagnosis for certain organ pat hology. FINDINGS: LOWER LUNGS: The visualized lower lungs are clear. LIVER: Homogeneous density. There is no dilation of the biliary tree. No calcified gallstones. A few stabl e hepatic cysts are again demonstrated. The largest cyst measures 2.5 cm and the left lobe. SPLEEN: Normal size without lesion. PANCREAS: Within normal limits. KIDNEYS: Normal in size and shape. There is no mass, stone, or hydronephrosis. ADRENAL GLANDS: Within normal limits. VASCULAR: There is no aortic aneurysm. BOWEL/MESENTERY: There continues to be some nonspecific mild to moderate diffuse dilatation of the small bowel. This p attern was present on the prior exam without significant changes. The colon is nondistended. The appe ndix is unremarkable. No inflammatory changes are seen. No free fluid or loculated fluid collections are seen. There is no evidence of free air. ABDOMINAL WALL: Within normal limits. RETROPERITONEUM: There is no lymphadenopathy. BLADDER: Decompressed REPRODUCTIVE: Within normal limits. INGUINAL: There is no lymphadenopathy or hernia. MUSCULOSKELETAL: Within normal limits for patient age. Compared to the prior examination there have been no new or significant changes. CONCLUSION: 1. There continues to be some mild to moderate diffuse nonspecific dilatation of the small bowel. Thi s pattern is not significantly changed compared to the prior examination. 2. Stable hepatic cysts. 3. No new or significant changes compared to the prior exam. Julien Pandey MD on September 29, 2017 at 16:37 Board Certified Radiologist. This report was verified electronically.
[2017-09-29 16:43] LABS: INTERNATIONAL NORMALIZED RATIO 1.2 RATIO
[2017-09-29 16:45] LABS: ALBUMIN 3.2 GM/DL (3.4-5.0); AST (GOT) 19 U/L (15-37); BICARBONATE 16.6 MEQ/L (21.0-32.0); BLOOD UREA NITROGEN 69 MG/DL (7-18); CALCIUM 8.1 MG/DL (8.5-10.1); CHLORIDE 103 MEQ/L (98-107); CREATININE 5.98 MG/DL (0.60-1.30); GLOMERULAR FILTRATION RATE 9 ML/MIN (>89); GLUCOSE,RANDOM 113 MG/DL (74-106); MAGNESIUM 2.9 MG/DL (1.5-2.5); SODIUM (NA) 134 MEQ/L (136-145)
[2017-09-29 16:46] LABS: ALT (GPT) 35 U/L (12-78)
[2017-09-29 16:50] LABS: ALKALINE PHOSPHATASE 81 U/L (45-117); TOTAL BILIRUBIN ADULT 0.6 MG/DL (0.2-1.0); TOTAL PROTEIN 7.3 GM/DL (6.4-8.2); TROPONIN I LESS THAN 0.02 NG/ML (0.02-0.05)
--- NOTE | 2017-09-29 17:54 | HHI.HP ---
HPI Service [facility] Primary Care Physician Rajendra Johns Jr, DO Admission Diagnosis Acute renal failure, bigeminy Diagnoses: (1) Nausea & vomiting Diagnosis: Principal (2) Acute renal failure Diagnosis: Principal Chief Complaint: nausea and vomiting Travel History International Travel<30 Days: No Contact w/Intl Traveler <30 Da: No Traveled to Known Affected Are: No History of Present Illness Written by Lilliam Quinn, acting as scribe for Dr. Rosenbaum on 09/29/17 at 17:54. 67-year-old male with PMH of HTN, HLD, CVA and dementia who presents to the ED due to ongoing diarrhea and nausea. EMR was reviewed, patient was recently in [facility] on 09/24 due to the same issues. He was admitted and later discharged on 09/25. During his stay his initial creatinine 2.7, with BUN 33. CT of abd/ pelvis with fluid filled loops in the small bowel no obstruction. He was treated with IVF, nausea resolved and he was discharged. Son and are at bedside at the time of my exam and interview and repot that today is day 10 of this issue. When he was discharged patient did seem to get better, however the nausea and diarrhea returned. Son repots that he has two small children at home who have also been ill with similar symptoms. Son's children were negative for the flu virus after being tested but were thought to possibly have a viral infection. He repots that there was no testing of stool done on them as he realized this too late. states that the diarrhea is constant and patient has been having about 20 BMs per day according to . Denies any black or blood in the stool. He has been unable to eat solid foods at home. The majority of the information is gathered from the and son at bedside. Patient denies any fevers, chills, SOB, or chest pain. Patient is requesting to go to a regular room as the beds in the ED are very uncomfortable. Review of Systems Gastrointestinal: COMPLAINS OF: Diarrhea, Nausea, Vomiting Except as stated in HPI: all other systems reviewed are Neg Past Family Social History Past Medical History HTN HLD CVA Dementia Past Surgical History Right knee replacement Kidney stone removal Lithotripsy Reported Medications Reported Meds & Active Scripts Active Reported Aspirin Low Dose (Aspirin) 81 Mg Chew 2 Tab PO DAILY Cetirizine (Cetirizine HCl) 10 Mg Chew 10 Mg CHEW DAILY Atorvastatin (Atorvastatin Calcium) 10 Mg Tab 10 Mg PO HS Coq-10 (Coenzyme Q10 (Ubidecarenone)) 30 Mg Cap 1 Cap PO DAILY Zofran Odt (Ondansetron Odt) 4 Mg Tab 4 Mg SL Q8HR PRN Paroxetine (Paroxetine HCl) 20 Mg Tab 20 Mg PO DAILY Valsartan-Hydrochlorothiazide 160-12.5 Mg Tab 1 Tab PO DAILY Donepezil 10 Mg Tab 10 Mg PO DAILY Allergies: Coded Allergies: No Known Allergies (Unverified , 09/29/17) Family History Family history of lung cancer and dementia Social History Tobacco: cigar every now and then Alcohol: was a heavy drinker and admits to "abusing" alcohol up until 3 moths ago No reported illicit drug use. Physical Exam Vital Signs Vital Signs Date Time Temp Pulse Resp B/P (MAP) Pulse Ox O2 Delivery O2 Flow Rate FiO2 09/29/17 16:35 95 20 153/57 (89) 97 Room Air 09/29/17 16:11 98 83/47 (59) 09/29/17 16:10 97 Room Air 09/29/17 15:45 97.6 84 20 91/50 (64) 97 Physical Exam GENERAL: This is a well-nourished, well-developed patient, in no apparent distress. SKIN: No rashes, ecchymoses or lesions. Cool and dry. HEAD: Atraumatic. Normocephalic. EYES: Pupils equal round and reactive. Extraocular motions intact. No scleral icterus. No injection or drainage. ENT: Nose without bleeding, purulent drainage. Airway patent. NECK: Trachea midline. No JVD or lymphadenopathy. Supple. CARDIOVASCULAR: Tachycardic with ectopy, no murmurs, gallops, or rubs. RESPIRATORY: Clear to auscultation. Breath sounds equal bilaterally. No wheezes , rales, or rhonchi. GASTROINTESTINAL: Abdomen soft, distended, mild tenderness to palpation, hyperactive bowel sounds. MUSCULOSKELETAL: Extremities without clubbing, cyanosis, or edema. No joint tenderness, effusion, or edema noted. No calf tenderness. NEUROLOGICAL: Awake and alert. Cranial nerves II through XII intact. Motor and sensory grossly within normal limits. Five out of 5 muscle strength in all muscle groups. Normal speech. Laboratory Laboratory Tests Test 09/29/17 16:10 White Blood Count 14.2 Red Blood Count 4.77 Hemoglobin 15.4 Hematocrit 44.9 Mean Corpuscular Volume 94.2 Mean Corpuscular Hemoglobin 32.3 Mean Corpuscular Hemoglobin Concent 34.2 Red Cell Distribution Width 14.0 Platelet Count 272 Mean Platelet Volume 9.0 Neutrophils (%) (Auto) 74.1 Lymphocytes (%) (Auto) 11.4 Monocytes (%) (Auto) 12.2 Eosinophils (%) (Auto) 1.7 Basophils (%) (Auto) 0.6 Neutrophils # (Auto) 10.5 Lymphocytes # (Auto) 1.6 Monocytes # (Auto) 1.7 Eosinophils # (Auto) 0.2 Basophils # (Auto) 0.1 CBC Comment DIFF FINAL Differential Comment Prothrombin Time 12.0 Prothromb Time International Ratio 1.2 Activated Partial Thromboplast Time 25.4 Blood Urea Nitrogen 69 Creatinine 5.98 Random Glucose 113 Total Protein 7.3 Albumin 3.2 Calcium Level 8.1 Magnesium Level 2.9 Alkaline Phosphatase 81 Aspartate Amino Transf (AST/SGOT) 19 Alanine Aminotransferase (ALT/SGPT) 35 Total Bilirubin 0.6 Sodium Level 134 Potassium Level 3.5 Chloride Level 103 Carbon Dioxide Level 16.6 Anion Gap 14 Estimat Glomerular Filtration Rate 9 Lactic Acid Level 1.8 Total Creatine Kinase 70 Troponin I LESS THAN 0.02 B-Type Natriuretic Peptide 21 Result Diagram: 09/29/17 1610 09/29/17 1610 Imaging Last Impressions Chest X-Ray 09/29/17 1602 Signed Impressions: Service Date/Time: Friday, September 29, 2017 16:07 - CONCLUSION: No acute cardiopulmonary abnormality is identified. Kaushik Brooke MD Abdomen/Pelvis CT 09/29/17 0000 Signed Impressions: Service Date/Time: Friday, September 29, 2017 16:26 - CONCLUSION: 1. There continues to be some mild to moderate diffuse nonspecific dilatation of the small bowel. This pattern is not significantly changed compared to the prior examination. 2. Stable hepatic cysts. 3. No new or significant changes compared to the prior exam. Julien Pandey MD Caprini VTE Risk Assessment Caprini VTE Risk Assessment: Mod/High Risk (score >= 2) Caprini Risk Assessment Model Point Value = 1 Point Value = 2 Point Value = 3 Point Value = 5 Age 41-60 Minor surgery BMI > 25 kg/m2 Swollen legs Varicose veins or History of unexplained or recurrent spontaneous Oral contraceptives or hormone replacement Sepsis (< 1 month) Serious lung disease, including pneumonia (< 1 month) Abnormal pulmonary function Acute myocardial infarction Congestive heart failure (< 1 month) History of inflammatory bowel disease Medical patient at bed rest Age 61-74 Arthroscopic surgery Major open surgery (> 45 min) Laparoscopic surgery (> 45 min) Malignancy Confined to bed (> 72 hours) Immobilizing plaster cast Central venous access Age >= 75 History of VTE Family history of VTE Factor V Leiden Prothrombin [id number] Lupus anticoagulant Anticardiolipin antibodies Elevated serum homocysteine Heparin-induced thrombocytopenia Other congenital or acquired thrombophilia Stroke (< 1 month) Elective arthroplasty Hip, pelvis, or leg fracture Acute spinal cord injury (< 1 month) Prophylaxis Regimen Total Risk Factor Score Risk Level Prophylaxis Regimen 0-1 Low Early ambulation 2 Moderate Order ONE of the following: *Sequential Compression Device (SCD) *Heparin 5000 units SQ BID 3-4 Higher Order ONE of the following medications: *Heparin 5000 units SQ TID *Enoxaparin/Lovenox 40 mg SQ daily (WT < 150 kg, CrCl > 30 mL/min) *Enoxaparin/Lovenox 30 mg SQ daily (WT < 150 kg, CrCl > 10-29 mL/min) *Enoxaparin/Lovenox 30 mg SQ BID (WT < 150 kg, CrCl > 30 mL/min) AND/OR *Sequential Compression Device (SCD) 5 or more Highest Order ONE of the following medications: *Heparin 5000 units SQ TID (Preferred with Epidurals) *Enoxaparin/Lovenox 40 mg SQ daily (WT < 150 kg, CrCl > 30 mL/min) *Enoxaparin/Lovenox 30 mg SQ daily (WT < 150 kg, CrCl > 10-29 mL/min) *Enoxaparin/Lovenox 30 mg SQ BID (WT < 150 kg, CrCl > 30 mL/min) AND *Sequential Compression Device (SCD) Assessment and Plan Assessment and Plan 67-year-old male with PMH of HTN, HLD, CVA and dementia who presents to the ED due to ongoing diarrhea and nausea. EMR was reviewed, patient was recently in [facility] on 09/24 due to the same issues. He was admitted and later discharged on 09/25. During his stay his initial creatinine 2.7, with BUN 33. CT of abd/ pelvis with fluid filled loops in the small bowel no obstruction. He was treated with IVF, nausea resolved and he was discharged. AMAURY - Secondary to severe dehydration from nausea and vomiting - Creatinine 5.98, BUN 69, GFR 9 on admission - Provided with NS IV 2L bolus in the ED, continue IV hydration - Follow renal function and electrolytes, I&O, avoid nephrotoxin Hyponatremia Hypermagnesemia - Likely secondary to ongoing vomiting and diarrhea - IV NS, follow electrolytes in the AM Diarrhea/nausea - Patient has been around small grandchildren who have similar symptoms, concern of Rotavirus. - Mild leukocytosis with neutrophil count of 74.1, afebrile without tachycardia. - CT of abd/pelvis reviewed, mild to moderate diffuse nonspecific dilatation of the small bowel, pattern is not significantly changed compared to the prior examination. Stable hepatic cysts. - Check stool for c.diff, O&P, enteric pathogen and WBC's - PRN Zofran for nausea HTN HLD Hx CVA - Will hold off on antihypertensives due to severe dehydration. Patient's BP on arrival to ED 91/50 - Continue home dose statin and ASA Dementia - Continue home dose of Aricept DVT prophylaxis- SCD's Discussed with patient, son, and at bedside. This note was transcribed by scribe [ Lilliam Quinn,]. I, Dr. Analisa Rosenbaum personally performed the history, physical exam, and medical decision making; and confirmed the accuracy of the information in the transcribed note. Authenticated by Dr. Analisa Rosenbaum acting as scribe for Dr. Rosenbaum on 09/29/17 at 18:30 Physician Certification 2 Midnight Certification Type: Admission for Inpatient Services Order for Inpatient Services The services are ordered in accordance with Medicare regulations or non- Medicare payer requirements, as applicable. In the case of services not specified as inpatient-only, they are appropriately provided as inpatient services in accordance with the 2-midnight benchmark. Estimated LOS (days): 3 days is the estimated time the patient will need to remain in the hospital, assuming treatment plan goals are met and no additional complications. Post-Hospital Plan: Not yet determined Problem Qualifiers (1) Acute renal failure: Qualified Codes: N17.9 - Acute kidney failure, unspecified Lilliam Quinn September 29, 2017 17:54 Analisa Rosenbaum MD September 29, 2017 19:01
[2017-09-29] MEDS ORDERED: ONDANSETRON HCL 4 MG/2 ML VIAL IVP PRN (18:30)
[2017-09-29] MEDS ORDERED: NALOXONE HCL 0.4 MG/ML AMP IV PUSH PRN (18:30)
[2017-09-29 20:19] LABS: BILIRUBIN, URINE NEG (NEG); BLOOD, URINE SMALL (NEG); GLUCOSE,URINE NEG (NEG); HYALINE CAST, URINE 54 /lpf (RARE); KETONE, URINE NEG (NEG); MUCUS URINE FEW /lpf (OCC); NITRITE,URINE NEG (NEG); SQUAMOUS EPITHELIAL CELL URINE 2 /hpf (0-5); URINE COLOR YELLOW (YELLW/STRAW); URINE LEUKOCYTE ESTERASE NEG (NEG)
--- NOTE | 2017-09-29 21:30 | RADRPT ---
EXAM DATE/TIME: 09/29/2017 21:06 [facility] COMPARISON: CHEST SINGLE AP, September 29, 2017, 16:07. INDICATIONS : Short of breath. MEDICAL HISTORY : Hypertension. SURGICAL HISTORY : None. ENCOUNTER: Initial ACUITY: 1 day PAIN SCORE: Non-responsive. LOCATION: Bilateral chest FINDINGS: A single view of the chest demonstrates minimal bibasilar densities. Heart enlarged. The cardiomedias tinal contours are unremarkable. Osseous structures are intact. CONCLUSION: Minimal bibasilar densities likely atelectasis. Kavin Naqvi MD on September 29, 2017 at 21:27 Board Certified Radiologist. This report was verified electronically.
[2017-09-29 21:53] LABS: BICARBONATE 15.9 MEQ/L (21.0-32.0); CREATININE 5.65 MG/DL (0.60-1.30); MAGNESIUM 2.5 MG/DL (1.5-2.5)
[2017-09-29 21:55] LABS: PHOSPHORUS 4.2 MG/DL (2.5-4.9)
[2017-09-29] MEDS ORDERED: POTASSIUM CHLORIDE 20 MEQ CONTROLLED RELEASE TAB PO ONE (22:00)
[2017-09-29] MEDS ORDERED: cefTRIAXone INJ 1,000 MG in SODIUM CHLORIDE 0.9% INJ 100 ML IV SCH (22:00)
[2017-09-29] MEDS: ATORVASTATIN 10 MG TAB PO SCH (22:26)
[2017-09-29] MEDS: SODIUM CHLOR 0.9% 1000 ML INJ 1,000 ML IV SCH (22:26)
[2017-09-29] MEDS: PROCHLORPERAZINE INJ 10 MG/2 ML VIAL IV PUSH PRN (22:29)
[2017-09-29] MEDS ORDERED: AZITHROMYCIN INJ 500 MG in SODIUM CHLOR 0.9% 250 ML INJ 250 ML IV SCH (23:00)
--- NOTE | 2017-09-29 23:36 | RADRPT ---
EXAM DATE/TIME: 09/29/2017 22:58 [facility] COMPARISON: No previous studies available for comparison. INDICATIONS : Increased BUN/Creatnine. MEDICAL HISTORY : Stroke. Hypercholesterolemia. Hypertension. Dementia. Anticoagulant therapy. Kindey stones. SURGICAL HISTORY : Lithotripsy. Right knee replacement. ENCOUNTER: Subsequent ACUITY: 1 day PAIN SCORE: 0/10 LOCATION: Bilateral flank MEASUREMENTS: RIGHT KIDNEY: 13.3 x 5.0 x 5.4 cm LEFT KIDNEY: 12.7 x 5.5 x 5.6 cm FINDINGS: RIGHT KIDNEY: Renal cortex is normal in thickness and echotexture. No hydronephrosis, stone, or mass. LEFT KIDNEY: Renal cortex is normal in thickness and echotexture. No hydronephrosis, stone, or mass. BLADDER: Within normal limits given the degree of distension. CONCLUSION: Negative exam. Both kidneys are sonographically normal. Nelson Carmona MD on September 29, 2017 at 23:34 Board Certified Radiologist. This report was verified electronically.
[2017-09-30] VITALS (24 sets, daily range): BP systolic 81–116; BP diastolic 47–73; PULSE 82–108; RESP 18–22; TEMP 97.8–98.4; O2SAT 94–97
[2017-09-30] MEDS: metroNIDAZOLE 500 MG INJ 100 ML IV SCH ×4 (00:39→23:56)
[2017-09-30] MEDS: PROCHLORPERAZINE INJ 10 MG/2 ML VIAL IV PUSH PRN (03:26)
[2017-09-30] MEDS ORDERED: PROMETHAZINE INJ 25 MG/ML VIAL IM PRN (05:15)
[2017-09-30 06:46] LABS: AUTOMATED NEUTROPHIL # 22.7 TH/MM3 (1.8-7.7); BASOPHIL % 0.1 % (0.0-2.0); EOSINOPHIL # 0.1 TH/MM3 (0-0.4); EOSINOPHIL % 0.4 % (0.0-4.0); HEMATOCRIT 42.4 % (39.0-51.0); LYMPH % 6.9 % (9.0-44.0); LYMPHOCYTE # 1.9 TH/MM3 (1.0-4.8); MEAN CELL VOLUME 92.8 FL (80.0-100.0); MEAN CORPUSCULAR HEMOGLOBIN 32.9 PG (27.0-34.0); MEAN CORPUSCULAR HGB CONC 35.4 % (32.0-36.0); MEAN PLATELET VOLUME 9.1 FL (7.0-11.0); MONO % 9.2 % (0.0-8.0); MONOCYTE # 2.5 TH/MM3 (0-0.9); NEUT % 83.4 % (16.0-70.0); PLATELET COUNT 260 TH/MM3 (150-450); RED BLOOD COUNT 4.57 MIL/MM3 (4.50-5.90); RED CELL DISTRIBUTION WIDTH 13.7 % (11.6-17.2); WHITE BLOOD COUNT 27.2 TH/MM3 (4.0-11.0)
[2017-09-30 07:08] LABS: BICARBONATE 14.9 MEQ/L (21.0-32.0); CALCIUM 7.7 MG/DL (8.5-10.1); CREATININE 6.92 MG/DL (0.60-1.30); MAGNESIUM 2.8 MG/DL (1.5-2.5)
[2017-09-30] MEDS: SODIUM CHLOR 0.9% 1000 ML INJ 1,000 ML IV SCH (08:22)
[2017-09-30] MEDS: ASPIRIN 81 MG CHEW TAB PO SCH (09:00)
[2017-09-30] MEDS ORDERED: SODIUM CHLOR 0.9% 1000 ML INJ 1,000 ML IV ONE (09:00)
[2017-09-30] MEDS: PARoxetine HCL 20 MG TAB PO SCH (09:00)
[2017-09-30] MEDS: CETIRIZINE HCL 10 MG TAB PO SCH (09:00)
[2017-09-30] MEDS: DONEPEZIL HCL 5 MG TAB PO SCH (09:00)
[2017-09-30 09:29] LABS: BANDS 60 % (0-6); LYMPHOCYTES 2 % (9-44); MONOCYTES 3 % (0-8); NEUTROPHIL # MANUAL DIFF 25.8 TH/MM3 (1.8-7.7); POLYS (SEG NEUTROPHILS) 35 % (16-70)
--- NOTE | 2017-09-30 10:03 | RADRPT ---
EXAM DATE/TIME: 09/30/2017 09:12 [facility] COMPARISON mild bibasilar airspace opacity. No pleural effusion or pneumothorax is identified .: CT ABDOMEN & PELVIS W/O CONTRAST, September 29, 2017, 16:26. CHEST SINGLE AP, September 29, 2017, 21:06. INDICATIONS : Short of breath MEDICAL HISTORY : Hypertension. Renal failure, acute. SURGICAL HISTORY : None. ENCOUNTER: Subsequent ACUITY: 2 days PAIN SCORE: Non-responsive. LOCATION: Bilateral chest FINDINGS: Portable AP view of the chest demonstrates a normal-sized cardiac silhouette. EKG lines overlie the p atient. Lungs are mildly underinflated and there is stable mild bibasilar opacity, right greater than left. No pleural effusion or pneumothorax is identified. The bones and soft tissues demonstrate no a cute finding. CONCLUSION: Stable chest x-ray with bibasilar airspace opacity most likely representing atelectasis. Kaushik Brooke MD on September 30, 2017 at 9:58 Board Certified Radiologist. This report was verified electronically.
--- NOTE | 2017-09-30 11:15 | HHI.PR ---
Subjective Remarks The patient is in bed he appears with some sob and weak. Patient says sdid not have any urination. However does not complain of any pain. No fever or chills. Feels very tired. Still with diarrhea and also with nausea and vomiting he is not able to keep anything down. He has no abdominal pain. Family at bedside . Patient was noted with low blood pressure, give 1 L normal saline 1 time and repeat blood pressure better controlled. Objective Vitals Vital Signs Date Time Temp Pulse Resp B/P (MAP) Pulse Ox O2 Delivery O2 Flow Rate FiO2 09/30/17 10:47 96 Nasal Cannula 2.00 09/30/17 08:10 97.8 83 22 81/47 (58) 94 09/30/17 08:00 82 09/30/17 06:00 98 09/30/17 05:00 94 09/30/17 04:00 92 09/30/17 03:10 98.4 98 20 95/56 (69) 96 09/30/17 03:00 100 09/30/17 02:00 96 09/30/17 01:14 102 09/30/17 00:00 92 09/29/17 23:04 98.6 97 22 101/52 (68) 95 09/29/17 23:00 96 09/29/17 22:00 106 09/29/17 21:00 104 09/29/17 20:00 116 09/29/17 19:58 09/29/17 19:56 99.9 116 22 105/56 (72) 94 09/29/17 18:30 110 22 130/83 (99) 98 Nasal Cannula 2.00 09/29/17 17:30 104 22 122/64 (83) 97 Nasal Cannula 2.00 09/29/17 16:35 95 20 153/57 (89) 97 Room Air 09/29/17 16:11 98 83/47 (59) 09/29/17 16:10 97 Room Air 09/29/17 15:45 97.6 84 20 91/50 (64) 97 I/O 09/29/17 09/29/17 09/29/17 09/30/17 09/30/17 09/30/17 07:00 15:00 23:00 07:00 15:00 23:00 Intake Total 1000 ml 760 ml Output Total 125 ml 200 ml Balance 875 ml 560 ml Intake Oral 600 ml IV Total 1000 ml 160 ml Output Urine Total 125 ml 200 ml # Voids 1 # Bowel Movements 3 Result Diagram: 09/30/17 0603 09/30/17 0603 Imaging Last Impressions Chest X-Ray 09/30/17 0000 Signed Impressions: Service Date/Time: September 09:12 - CONCLUSION: Stable chest x-ray with bibasilar airspace opacity most likely representing atelectasis. Kaushik Brooke MD Renal Ultrasound 09/29/17 0000 Signed Impressions: Service Date/Time: Friday, September 29, 2017 22:58 - CONCLUSION: Negative exam. Both kidneys are sonographically normal. Nelson Carmona MD Abdomen/Pelvis CT 09/29/17 0000 Signed Impressions: Service Date/Time: Friday, September 29, 2017 16:26 - CONCLUSION: 1. There continues to be some mild to moderate diffuse nonspecific dilatation of the small bowel. This pattern is not significantly changed compared to the prior examination. 2. Stable hepatic cysts. 3. No new or significant changes compared to the prior exam. Julien Pandey MD Objective Remarks GENERAL: This is a well-nourished, well-developed patient, in no apparent distress. CARDIOVASCULAR: Tachycardic with ectopy, no murmurs, gallops, or rubs. RESPIRATORY: Clear to auscultation. Breath sounds equal bilaterally. No wheezes , rales, or rhonchi. GASTROINTESTINAL: Abdomen soft, distended, mild tenderness to palpation, hyperactive bowel sounds. MUSCULOSKELETAL: Extremities without clubbing, cyanosis, or edema. No joint tenderness, effusion, or edema noted. No calf tenderness. NEUROLOGICAL: Awake and alert. Cranial nerves II through XII intact. Motor and sensory grossly within normal limits. Five out of 5 muscle strength in all muscle groups. Normal speech. A/P Problem List: (1) Nausea & vomiting ICD Code: R11.2 - Nausea with vomiting, unspecified (2) Acute renal failure ICD Code: N17.9 - Acute kidney failure, unspecified Status: Acute Assessment and Plan 67-year-old male with PMH of HTN, HLD, CVA and dementia who presents to the ED due to ongoing diarrhea and nausea. EMR was reviewed, patient was recently in [place] [facility] on 09/24 due to the same issues. He was admitted and later discharged on 09/25. During his stay his initial creatinine 2.7, with BUN 33. CT of abd/ pelvis with fluid filled loops in the small bowel no obstruction. He was treated with IVF, nausea resolved and he was discharged. AMAURY Secondary to severe dehydration from nausea and vomiting Creatinine 5.98, BUN 69, GFR 9 on admission. function is worsening today. Provided with NS IV 2L bolus in the ED, continue IV hydration. Patient blood pressure was noted very low and received 1 L normal saline morning 09/30/17. Change IV fluids to half normal saline with 75 mEq bicarbonate 75 cc/h Follow renal function and electrolytes, I&O, avoid nephrotoxin Nephrology consulted and following, appreciate recommendations Hyponatremia Hypermagnesemia Likely secondary to ongoing vomiting and diarrhea IV NS, follow electrolytes in the AM Diarrhea/nausea Patient has been around small grandchildren who have similar symptoms, concern of Rotavirus. Mild leukocytosis with neutrophil count of 74.1, afebrile without tachycardia. CT of abd/pelvis reviewed, mild to moderate diffuse nonspecific dilatation of the small bowel, pattern is not significantly changed compared to the prior examination. Stable hepatic cysts. Check stool for c.diff, O&P, enteric pathogen and WBC's PRN Zofran for nausea HTN HLD Hx CVA Will hold off on antihypertensives due to severe dehydration. Patient's BP on arrival to ED 91/50 Continue home dose statin and ASA SOB 2/2 atelectasis. Monitor for signs of infection: CXR reviewed with atelectasis. Add IS. Dementia- Continue home dose of Aricept DVT prophylaxis- SCD's Discussed with patient, nurse and at bedside. Discharge plan pending improvement and clearance by nephrology Problem Qualifiers (1) Acute renal failure: Qualified Codes: N17.9 - Acute kidney failure, unspecified Genny Turcios MD September 30, 2017 11:15
--- NOTE | 2017-09-30 12:28 | PD.CONS ---
HPI Service Nephrology Consult Requested By Reason for Consult Acute Renal failure Primary Care Physician Rajendra Johns Jr, DO History of Present Illness This is an elderly male patient. His PMH includes HTN, hyperlipidemia , and CVA with dementia. Last Wednesday he was admitted to [facility] for nausea/vomiting/diarrhea. At that time he was in renal failure with a creatinine of 2.7 that improved to 1.4 the next day when he was discharged home. He came back to ER for return of symptoms. This admission his creatinine was 5.9 and has worsened to 6.9 today. He is not making much urine. potassium is 3.4. He is not in distress, and IVF is infusing. Leukocytosis is noted in addition to mild metabolic acidosis, he tested positive for C diff. His daughter in law is at the bedside. We were consulted to assist. (Fely Wilkinson) Review of Systems Constitutional: COMPLAINS OF: Fatigue, DENIES: Weight gain Respiratory: DENIES: Sputum production, Shortness of breath Gastrointestinal: COMPLAINS OF: Diarrhea, Nausea, Vomiting, DENIES: Abdominal pain, Difficulty Swallowing (Fely Wilkinson) Past Family Social History Allergies: Coded Allergies: No Known Allergies (Unverified , 09/29/17) Past Medical History HTN HLD CVA Dementia Past Surgical History Right knee replacement Kidney stone removal and lithotripsy Reported Medications Aspirin Low Dose (Aspirin) 81 Mg Chew 2 Tab PO DAILY Cetirizine (Cetirizine HCl) 10 Mg Chew 10 Mg CHEW DAILY Atorvastatin (Atorvastatin Calcium) 10 Mg Tab 10 Mg PO HS Coq-10 (Coenzyme Q10 (Ubidecarenone)) 30 Mg Cap 1 Cap PO DAILY Zofran Odt (Ondansetron Odt) 4 Mg Tab 4 Mg SL Q8HR PRN Paroxetine (Paroxetine HCl) 20 Mg Tab 20 Mg PO DAILY Valsartan-Hydrochlorothiazide 160-12.5 Mg Tab 1 Tab PO DAILY Donepezil 10 Mg Tab 10 Mg PO DAILY Active Ordered Medications Current Medications Medications (Trade) Dose Ordered Sig/[place] Route Start Time Stop Time Status Last Admin (NS Flush) 2 ml UNSCH PRN IVF 09/29/17 16:15 Sodium Chloride 1,000 ml @ 120 mls/hr Q8H20M IV 09/29/17 20:00 09/30/17 08:22 (Tylenol) 650 mg Q4H PRN PO 09/29/17 18:30 (Narcan Inj) 0.4 mg UNSCH PRN IV PUSH 09/29/17 18:30 (Aspirin Chew) 162 mg DAILY PO 09/30/17 09:00 (Lipitor) 10 mg HS PO 09/29/17 21:00 09/29/17 22:26 (ZyrTEC) 10 mg DAILY PO 09/30/17 09:00 (Aricept) 10 mg DAILY PO 09/30/17 09:00 (Paxil) 20 mg DAILY PO 09/30/17 09:00 (Compazine Inj) 5 mg Q3H PRN IV PUSH 09/29/17 21:45 09/30/17 03:26 Metronidazole 100 ml @ 100 mls/hr Q8H IV 09/30/17 00:00 09/30/17 08:22 (Phenergan Inj) 25 mg Q6H PRN IM 09/30/17 05:15 09/30/17 05:33 Family History None Social History Non smoker Former heavy ETOH, quit recently Independent with ADLs Full code Retired (Fely Wilknison) Physical Exam Vital Signs Vital Signs Date Time Temp Pulse Resp B/P (MAP) Pulse Ox O2 Delivery O2 Flow Rate FiO2 09/30/17 11:00 98.1 108 22 105/64 (78) 95 09/30/17 10:47 96 Nasal Cannula 2.00 09/30/17 08:10 97.8 83 22 81/47 (58) 94 09/30/17 08:00 82 09/30/17 06:00 98 09/30/17 05:00 94 09/30/17 04:00 92 09/30/17 03:10 98.4 98 20 95/56 (69) 96 09/30/17 03:00 100 09/30/17 02:00 96 09/30/17 01:14 102 09/30/17 00:00 92 09/29/17 23:04 98.6 97 22 101/52 (68) 95 09/29/17 23:00 96 09/29/17 22:00 106 09/29/17 21:00 104 09/29/17 20:00 116 5/2/18 19:58 09/29/17 19:56 99.9 116 22 105/56 (72) 94 09/29/17 18:30 110 22 130/83 (99) 98 Nasal Cannula 2.00 09/29/17 17:30 104 22 122/64 (83) 97 Nasal Cannula 2.00 09/29/17 16:35 95 20 153/57 (89) 97 Room Air 09/29/17 16:11 98 83/47 (59) 09/29/17 16:10 97 Room Air 09/29/17 15:45 97.6 84 20 91/50 (64) 97 Physical Exam Elderly male, heavy set Awake, neuro intact, follows commands Lungs clear S1/S2, no ectopy Abd obese, soft, non tender, normal BS Ext no edema Laboratory Laboratory Tests Test 09/29/17 16:10 09/29/17 19:34 09/29/17 21:17 09/29/17 21:33 White Blood Count 14.2 Red Blood Count 4.77 Hemoglobin 15.4 Hematocrit 44.9 Mean Corpuscular Volume 94.2 Mean Corpuscular Hemoglobin 32.3 Mean Corpuscular Hemoglobin Concent 34.2 Red Cell Distribution Width 14.0 Platelet Count 272 Mean Platelet Volume 9.0 Neutrophils (%) (Auto) 74.1 Lymphocytes (%) (Auto) 11.4 Monocytes (%) (Auto) 12.2 Eosinophils (%) (Auto) 1.7 Basophils (%) (Auto) 0.6 Neutrophils # (Auto) 10.5 Lymphocytes # (Auto) 1.6 Monocytes # (Auto) 1.7 Eosinophils # (Auto) 0.2 Basophils # (Auto) 0.1 CBC Comment DIFF FINAL Differential Comment Prothrombin Time 12.0 Prothromb Time International Ratio 1.2 Activated Partial Thromboplast Time 25.4 Blood Urea Nitrogen 69 70 Creatinine 5.98 5.65 Random Glucose 113 103 Total Protein 7.3 Albumin 3.2 Calcium Level 8.1 8.0 Magnesium Level 2.9 2.5 Alkaline Phosphatase 81 Aspartate Amino Transf (AST/SGOT) 19 Alanine Aminotransferase (ALT/SGPT) 35 Total Bilirubin 0.6 Sodium Level 134 135 Potassium Level 3.5 3.0 Chloride Level 103 106 Carbon Dioxide Level 16.6 15.9 Anion Gap 14 13 Estimat Glomerular Filtration Rate 9 10 Lactic Acid Level 1.8 1.4 Total Creatine Kinase 70 Troponin I LESS THAN 0.02 B-Type Natriuretic Peptide 21 Urine Color YELLOW Urine Turbidity HAZY Urine pH 5.0 Urine Specific [place] 1.012 Urine Protein 100 Urine Glucose (UA) NEG Urine Ketones NEG Urine Occult Blood SMALL Urine Nitrite NEG Urine Bilirubin NEG Urine Urobilinogen LESS THAN 2.0 Urine Leukocyte Esterase NEG Urine RBC 1 Urine Squamous Epithelial Cells 2 Urine Hyaline Casts 54 Urine Granular Casts 14 Urine Mucus FEW Microscopic Urinalysis Comment CULT NOT INDICATED Phosphorus Level 4.2 Stool C. difficile Toxin (PCR) POSITIVE Stl C. difficile Toxin Epiderm 027 PRESUMPTIVE NEGATIVE Test 09/29/17 21:35 09/30/17 06:03 Blood Gas Puncture Site RT RADIAL Blood Gas Patient Temperature 98.6 Blood Gas HCO3 14 Blood Gas Base Excess -10.5 Blood Gas Oxygen Saturation 94 Arterial Blood pH 7.36 Arterial Blood Partial Pressure CO2 25 Arterial Blood Partial Pressure O2 91 Arterial Blood Oxygen Content 20.7 Arterial Blood Carboxyhemoglobin 0.5 Arterial Blood Methemoglobin 2.2 Blood Gas Hemoglobin 15.7 Oxygen Delivery Device NASAL CANNULA Blood Gas Liter Flow 3 White Blood Count 27.2 Red Blood Count 4.57 Hemoglobin 15.0 Hematocrit 42.4 Mean Corpuscular Volume 92.8 Mean Corpuscular Hemoglobin 32.9 Mean Corpuscular Hemoglobin Concent 35.4 Red Cell Distribution Width 13.7 Platelet Count 260 Mean Platelet Volume 9.1 Neutrophils (%) (Auto) 83.4 Lymphocytes (%) (Auto) 6.9 Monocytes (%) (Auto) 9.2 Eosinophils (%) (Auto) 0.4 Basophils (%) (Auto) 0.1 Neutrophils # (Auto) 22.7 Lymphocytes # (Auto) 1.9 Monocytes # (Auto) 2.5 Eosinophils # (Auto) 0.1 Basophils # (Auto) 0.0 CBC Comment AUTO DIFF Differential Total Cells Counted 100 Neutrophils % (Manual) 35 Band Neutrophils % 60 Lymphocytes % 2 Monocytes % 3 Neutrophils # (Manual) 25.8 Differential Comment FINAL DIFF MANUAL Platelet Estimate NORMAL Platelet Morphology Comment NORMAL Red Cell Morphology Comment NORMAL Blood Urea Nitrogen 77 Creatinine 6.92 Random Glucose 130 Calcium Level 7.7 Magnesium Level 2.8 Sodium Level 136 Potassium Level 3.4 Chloride Level 104 Carbon Dioxide Level 14.9 Anion Gap 17 Estimat Glomerular Filtration Rate 8 Date/Time Source Procedure Growth Status 09/29/17 21:17 Blood Peripheral Aerobic Blood Culture - Preliminary NO GROWTH IN 1 DAY Resulted 09/29/17 21:17 Blood Peripheral Anaerobic Blood Culture - Preliminary NO GROWTH IN 1 DAY Resulted 09/29/17 21:33 Stool Stool Cryptosporidium Exam - Final NEGATIVE - NO CRYPTOSPORIDIUM ANTIGEN... Complete 09/29/17 21:33 Stool Stool Stool Pus (SANDEEP) - Final NO WBC'S SEEN Complete 09/29/17 21:33 Stool Stool Giardia Antigen (SANDEEP) - Final NEGATIVE - NO GIARDIA ANTIGEN DETECTE... Complete (Fely Wilkinson) Result Diagram: 09/30/17 0603 09/30/17 0603 Imaging Last 72 hours Impressions Chest X-Ray 09/30/17 0000 Signed Impressions: Service Date/Time: September 09:12 - CONCLUSION: Stable chest x-ray with bibasilar airspace opacity most likely representing atelectasis. Kaushik Brooke MD Chest X-Ray 09/29/17 1602 Signed Impressions: Service Date/Time: Friday, September 29, 2017 16:07 - CONCLUSION: No acute cardiopulmonary abnormality is identified. Kaushik Brooke MD Renal Ultrasound 09/29/17 0000 Signed Impressions: Service Date/Time: Friday, September 29, 2017 22:58 - CONCLUSION: Negative exam. Both kidneys are sonographically normal. Nelson Carmona MD Chest X-Ray 09/29/17 0000 Signed Impressions: Service Date/Time: Friday, September 29, 2017 21:06 - CONCLUSION: Minimal bibasilar densities likely atelectasis. Kavin Naqvi MD Abdomen/Pelvis CT 09/29/17 0000 Signed Impressions: Service Date/Time: Friday, September 29, 2017 16:26 - CONCLUSION: 1. There continues to be some mild to moderate diffuse nonspecific dilatation of the small bowel. This pattern is not significantly changed compared to the prior examination. 2. Stable hepatic cysts. 3. No new or significant changes compared to the prior exam. Julien Pandey MD (Fely Wilkinson) Assessment and Plan Problem List: (1) Acute renal failure ICD Codes: N17.9 - Acute kidney failure, unspecified Status: Acute Plan: He was discharged Wednesday with a creatinine of 1.4, no other labs available Renal failure due to prerenal azotemia, most likely has progressed to ATN He is oliguric Needs to initiate dialysis. Orders entered. IR consulted for vascath placement continue IVF, change to 1/2 NS with 75 mEq bicarb @ 75 cc/hr Imaging not revealing any obstructive etiology Potassium replacement ordered Advance diet as tolerated, po fluids encouraged Quantify proteinuria, obtain A1c. Repeat labs in AM Avoid nephrotoxic agents (2) Leukocytosis ICD Codes: D72.829 - Elevated white blood cell count, unspecified Plan: Cultures in progress C Diff positive, on IV flagyl Other stool studies negative (3) Nausea & vomiting ICD Codes: R11.2 - Nausea with vomiting, unspecified Plan: Antiemetics as needed continue IVF Imaging not revealing GI etiology (Fely Wilkinson) Assessment and Plan Patient was seen and examined on 09/30/17. Agree with above assessment and plan. Discussed with patient's son. Because of poor urine output and worsening renal function, we will proceed with dialysis. (Cooper Bray MD) Problem Qualifiers (1) Acute renal failure: Qualified Codes: N17.9 - Acute kidney failure, unspecified Fely Wilkinson September 30, 2017 12:28 Cooper Bray MD October 01, 2017 15:33
[2017-09-30] MEDS ORDERED: POTASSIUM CHLORIDE 25 MEQ EFFERVESCENT TAB PO ONE (12:30)
[2017-09-30] MEDS ORDERED: SODIUM CHLOR 0.9% 1000 ML INJ 1,000 ML IV PRN (12:49)
[2017-09-30] MEDS ORDERED: SODIUM CHLOR 0.9% 1000 ML INJ 1,000 ML OTHER PRN ×2 (12:49)
[2017-09-30] MEDS ORDERED: cloNIDine HCL 0.1 MG TAB PO PRN (13:00)
[2017-09-30] MEDS ORDERED: ALBUMIN 25% INJ 100 ML IV PRN (13:00)
[2017-09-30] MEDS ORDERED: SODIUM BICARBONATE 8.4% INJ 75 MEQ in SODIUM CHLOR 0.45% 1000 ML INJ 1,000 ML IV SCH (13:00)
[2017-09-30] MEDS ORDERED: ONDANSETRON HCL 4 MG/2 ML VIAL IV PUSH PRN (13:00)
[2017-09-30] MEDS ORDERED: MANNITOL 12.5 GM/50 ML VIAL IV PRN (13:00)
[2017-09-30] MEDS ORDERED: GENTAMICIN SULFATE 20 MG/2 ML VIAL OTHER PRN (13:00)
[2017-09-30] MEDS ORDERED: HEPARIN SODIUM - IV 10,000 UNITS/10 ML VIAL IV FLUSH PRN (13:00)
[2017-09-30] MEDS ORDERED: SODIUM CHLORIDE 0.9% FLUSH 10 ML FLUSH IV FLUSH PRN ×2 (13:00→15:30)
[2017-09-30] MEDS ORDERED: ACETAMINOPHEN 325 MG TAB PO PRN (13:00)
[2017-09-30] MEDS ORDERED: GELATIN 12 MM/7 MM FOAM TOP PRN (13:00)
[2017-09-30] MEDS ORDERED: HEPARIN SODIUM - IV 10,000 UNITS/10 ML VIAL PRN (13:00)
[2017-09-30] MEDS ORDERED: NITROGLYCERIN 0.4 MG SL 25 TABS/BTL SL PRN (13:00)
[2017-09-30] MEDS ORDERED: diphenhydrAMINE HCL 25 MG CAP PO PRN (13:00)
[2017-09-30 14:38] LABS: HEMOGLOBIN A1C 5.8 % (4.3-6.0)
[2017-09-30] MEDS ORDERED: LIDOCAINE 1%/EPINEPHrine 1:100,000 SOLN 30 ML VIAL ONE (15:00)
--- NOTE | 2017-09-30 15:22 | EKG ---
Date Performed: 09/29/2017 Time Performed: 16:05:37 PTAGE: 67 years EKG: Sinus rhythm WITH FREQUENT VENTRICULAR PREMATURE COMPLEXES MODERATE INTRAVENTRICULAR CONDUCTION DELAY PROLONGED Q T INTERVAL ABNORMAL ECG NO PREVIOUS TRACING Nonspecific ST segment changes. Clinical correlation to exclude myoca rdial ischemia will be necessary. DOCTOR: Melanie Huang Interpretating Date/Time 09/30/2017 15:20:57
--- NOTE | 2017-09-30 15:24 | PD.RAD ---
Post Procedure Progress Note Pre Procedure Diagnosis: (1) Acute renal failure Post Procedure Diagnosis: (1) Acute renal failure Procedure Date: September 30, 2017 Supervising Radiologist: Jhony Razo Estimated blood loss: 2cc Anesthesia: Local Plan of Activity Patient to Unit: Nursing Unit Patient Condition: Fair Additional Comments: RIght subclavian vascath placed. Catheter in good position OK for use Right IJ is diminutive in size. Full dictated report to follow See PACS Report for procedural detail/treatment Jhony Razo MD September 30, 2017 15:24
[2017-09-30] MEDS ORDERED: HEPARIN SODIUM - IV 2,000 UNITS/2 ML VIAL IV FLUSH PRN (15:30)
--- NOTE | 2017-09-30 15:56 | RADRPT ---
EXAM DATE/TIME: 09/30/2017 15:18 [facility] COMPARISON: No previous studies available for comparison. INDICATIONS : Patient presents with acute renal failure in need of dialysis catheter placement. MEDICAL HISTORY : HTN HLD CVA Dementia SURGICAL HISTORY : Right knee replacement kidney stone removal Lithotripsy ENCOUNTER: Initial ACUITY: 2 days PAIN SCORE: 2/10 LOCATION: abdomen FLUORO TIME: 0.53 minutes IMAGE SERIES: 1 ACCESS: Right subclavian vein DEVICE(S): 1.) 14 [place] dual lumen 15 cm Schon catheter PROCEDURE : 1. Ultrasound guided venipuncture. 2. Fluoroscopic guidance. 3. Central line placement. The risks, benefits and alternatives to the procedure were explained to the patient and his laura mccarty and written consent was obtained. The site was prepped in sterile fashion. Full sterile techniqu e was used, including cap, mask, sterile gloves and gown and a large sterile sheet. Hand hygiene and 2% chlorhexidine prep was utilized per protocol for cutaneous antisepsis with appropriate dry time f or site. Sterile gel and sterile probe cover were utilized for ultrasound guidance. The right neck was examined with ultrasound. The right vein was quite small in size. The decision was made to place a catheter via the right subclavian. The skin and subcutaneous tissues were infiltrated with local anesthetic solution. A suitable site a ashwini the right subclavian vein was selected with ultrasound and fluoroscopic guidance. A small incis ion was made. The vein was accessed under direct ultrasound visualization using the micropuncture te chnique. The micropuncture set was exchanged for a 0.035 wire. The tract was dilated. The catheter was advanced into position under direct fluoroscopic visualization. The catheter was fixed in place with suture and a sterile dressing was applied. The patient tolerated the procedure well and there were no complications. CONCLUSION: Uncomplicated 14 [place] Vas-Cath placement as above. Jhony Razo MD on September 30, 2017 at 15:53 Board Certified Radiologist. This report was verified electronically.
[2017-09-30] MEDS: SODIUM CHLOR 0.45% 1000 ML INJ 1,000 ML IV SCH (18:41)
[2017-09-30] MEDS: ATORVASTATIN 10 MG TAB PO SCH (21:16)
[2017-09-30] MEDS: SODIUM CHLORIDE 0.9% FLUSH 10 ML FLUSH IVF PRN (21:16)
[2017-10-01] VITALS (13 sets, daily range): BP systolic 107–130; BP diastolic 66–80; PULSE 73–97; RESP 16–20; TEMP 98–98.8; O2SAT 94–98
[2017-10-01 06:33] LABS: ALBUMIN 2.7 GM/DL (3.4-5.0); CALCIUM 7.6 MG/DL (8.5-10.1); CREATININE 4.21 MG/DL (0.60-1.30); PHOSPHORUS 3.5 MG/DL (2.5-4.9)
[2017-10-01] MEDS ORDERED: POTASSIUM CHLORIDE 25 MEQ EFFERVESCENT TAB PO ONE (06:45)
[2017-10-01] MEDS: metroNIDAZOLE 500 MG INJ 100 ML IV SCH ×3 (08:00→23:39)
--- NOTE | 2017-10-01 10:18 | HHI.NPPN ---
Subjective Renal Failure: Acute Interval History Vascath placed yesterday, tolerated first HD well. Seen during dialysis today. Urine output improved. No new complaints. (Fely Wilkinson) Objective Data Data Vital Signs Date Time Temp Pulse Resp B/P (MAP) Pulse Ox O2 Delivery O2 Flow Rate FiO2 10/01/17 08:00 98.8 88 18 107/66 (80) 95 10/01/17 04:00 86 10/01/17 04:00 98.4 97 18 114/80 (91) 94 10/01/17 00:00 90 10/01/17 00:00 98.1 83 16 119/68 (85) 94 09/30/17 20:40 97 Nasal Cannula 2.00 09/30/17 20:00 97.9 89 20 115/73 (87) 95 09/30/17 20:00 92 09/30/17 18:00 94 09/30/17 17:30 98.0 92 18 116/59 (78) 96 09/30/17 17:00 90 09/30/17 16:00 92 09/30/17 14:00 92 09/30/17 13:00 94 09/30/17 12:00 96 09/30/17 11:00 108 09/30/17 11:00 98.1 108 22 105/64 (78) 95 09/30/17 10:47 96 Nasal Cannula 2.00 (Fely Wilkinson) -: 09/30/17 0603 10/01/17 0522 Imaging Last 72 hours Impressions Chest X-Ray 09/30/17 0000 Signed Impressions: Service Date/Time: September 09:12 - CONCLUSION: Stable chest x-ray with bibasilar airspace opacity most likely representing atelectasis. Kaushik Brooke MD Catheter Placement X-Ray 09/30/17 0000 Signed Impressions: Service Date/Time: September 15:18 - CONCLUSION: Uncomplicated 14 [place] Vas-Cath placement as above. Jhony Razo MD Chest X-Ray 09/29/17 1602 Signed Impressions: Service Date/Time: Friday, September 29, 2017 16:07 - CONCLUSION: No acute cardiopulmonary abnormality is identified. Kaushik Brooke MD Renal Ultrasound 09/29/17 Signed Impressions: Service Date/Time: Friday, September 29, 2017 22:58 - CONCLUSION: Negative exam. Both kidneys are sonographically normal. Nelson Carmona MD Chest X-Ray 09/29/17 Signed Impressions: Service Date/Time: Friday, September 29, 2017 21:06 - CONCLUSION: Minimal bibasilar densities likely atelectasis. Kavin Naqvi MD Abdomen/Pelvis CT 09/29/17 Signed Impressions: Service Date/Time: Friday, September 29, 2017 16:26 - CONCLUSION: 1. There continues to be some mild to moderate diffuse nonspecific dilatation of the small bowel. This pattern is not significantly changed compared to the prior examination. 2. Stable hepatic cysts. 3. No new or significant changes compared to the prior exam. Julien Pandey MD Tubes & Lines: Vas-Cath (Arash Wilkinsonon B. CLINICAL NUTRITIONIST) Physical Exam General Appearance: Well Developed, Well Nourished, Comfortable (Jaja,Fely B. CLINICAL NUTRITIONIST) Eyes Eye Exam: Pupils Equal (Jaja,Fely B. CLINICAL NUTRITIONIST) Throat Throat Exam: Oral Mucosa Learned & Moist (JajaFely B. CLINICAL NUTRITIONIST) Neck Neck Exam: Neck Supple (Jaja,Fely B. CLINICAL NUTRITIONIST) Pulmonary Resp Exam: Clear Bilaterally, Breath Sounds Equal (Jaja,Fely B. CLINICAL NUTRITIONIST) Cardiology CV Exam: Regular, Normal Sinus Rhythm (JajaFely B. CLINICAL NUTRITIONIST) Gastrointestinal/Abdomen GI Exam: Soft, Non-Tender, Bowel Sounds Present, Positive Bowel Movement (JajaFely B. CLINICAL NUTRITIONIST) Musculoskeletal MS Exam: Joints Intact, Normal Tone (Jaja,Fely B. CLINICAL NUTRITIONIST) Integumentary Skin Exam: Warm, Dry, Intact (Jaja,Fely B. CLINICAL NUTRITIONIST) Extremeties Extremities Exam: Pedal Pulses Palpable, Trace Edema (JajaFely B. CLINICAL NUTRITIONIST) Neurologic Neuro Exam: Alert, Awake, Oriented, Speech Clear, Moving All Extremities (JajaFely B. CLINICAL NUTRITIONIST) Psychiatric Psych Exam: Appropriate Responses (Fely Wilkinson B. CLINICAL NUTRITIONIST) Assessment/Plan Discussed Condition With: Patient Assessment Summary: AMAURY/Acute Renal Failure, Acute Tubular Necrosis, Dehydration Problem List: (1) Acute renal failure ICD Codes: N17.9 - Acute kidney failure, unspecified Status: Acute Plan: He was discharged Wednesday with a creatinine of 1.4, no other labs available Renal failure most likely due to ATN Vascath placed and HD initiated 09/30 Seen during HD today on a 4K, 250 BFR, goal 2L Monitor labs over the weekend, monitor urine output Await renal recovery HD Wednesday if needed Potassium replacement ordered, also on a 4K dialyate Advance diet as tolerated, po fluids encouraged Repeat labs in AM Avoid nephrotoxic agents (2) Leukocytosis ICD Codes: D72.829 - Elevated white blood cell count, unspecified Plan: Cultures in progress C Diff positive, on IV flagyl Other stool studies negative (3) Nausea & vomiting ICD Codes: R11.2 - Nausea with vomiting, unspecified Plan: Improving, most likely due to colitis, renal failure Antiemetics as needed continue IVF Imaging not revealing GI etiology (Fely Wilkinson) Plan patient was seen and examined. Agree with above assessment and plan. Dialysis yesterday and today, continue IVF, monitor urine output. Hopefully will not need dialysis. (Cooper Bray MD) Problem Qualifiers (1) Acute renal failure: Qualified Codes: N17.9 - Acute kidney failure, unspecified Fely Wilkinson October 01, 2017 10:18 Cooper Bray MD October 01, 2017 15:42
--- NOTE | 2017-10-01 10:19 | HHI.PR ---
Subjective Remarks The patient in the bed he went for dialysis in the morning. The patient was seen after dialysis to me. He was not able to eat breakfast however no more nausea vomiting. He is ordering food and thinks he is going to keep down. Still with persistent diarrhea every 2 hours. No fever or chills. No much abdominal pain. Objective Vitals Vital Signs Date Time Temp Pulse Resp B/P (MAP) Pulse Ox O2 Delivery O2 Flow Rate FiO2 10/01/17 08:00 98.8 88 18 107/66 (80) 95 10/01/17 04:00 86 10/01/17 04:00 98.4 97 18 114/80 (91) 94 10/01/17 00:00 90 10/01/17 00:00 98.1 83 16 119/68 (85) 94 09/30/17 20:40 97 Nasal Cannula 2.00 09/30/17 20:00 97.9 89 20 115/73 (87) 95 09/30/17 20:00 92 09/30/17 18:00 94 09/30/17 17:30 98.0 92 18 116/59 (78) 96 09/30/17 17:00 90 09/30/17 16:00 92 09/30/17 14:00 92 09/30/17 13:00 94 09/30/17 12:00 96 09/30/17 11:00 108 09/30/17 11:00 98.1 108 22 105/64 (78) 95 09/30/17 10:47 96 Nasal Cannula 2.00 I/O 09/30/17 09/30/17 09/30/17 10/01/17 10/01/17 10/01/17 07:00 15:00 23:00 07:00 15:00 23:00 Intake Total 760 ml 1300 ml 1267 ml Output Total 200 ml 2300 ml 1000 ml Balance 560 ml -1000 ml 267 ml Intake Oral 600 ml 1200 ml 480 ml IV Total 160 ml 100 ml 787 ml Output Urine Total 200 ml 400 ml 500 ml Stool Total 1200 ml 500 ml Hemodialysis 700 ml # Voids 5 # Bowel Movements 3 11 Result Diagram: 09/30/17 0603 10/01/17 0522 Imaging Last Impressions Chest X-Ray 09/30/17 0000 Signed Impressions: Service Date/Time: September 09:12 - CONCLUSION: Stable chest x-ray with bibasilar airspace opacity most likely representing atelectasis. Kaushik Brooke MD Catheter Placement X-Ray 09/30/17 Signed Impressions: Service Date/Time: September 15:18 - CONCLUSION: Uncomplicated 14 [place] Vas-Cath placement as above. Jhony Razo MD Renal Ultrasound 09/29/17 Signed Impressions: Service Date/Time: Friday, September 29, 2017 22:58 - CONCLUSION: Negative exam. Both kidneys are sonographically normal. Nelson Carmona MD Abdomen/Pelvis CT 09/29/17 Signed Impressions: Service Date/Time: Friday, September 29, 2017 16:26 - CONCLUSION: 1. There continues to be some mild to moderate diffuse nonspecific dilatation of the small bowel. This pattern is not significantly changed compared to the prior examination. 2. Stable hepatic cysts. 3. No new or significant changes compared to the prior exam. Julien Pandey MD Objective Remarks GENERAL: This is a well-nourished, well-developed patient, in no apparent distress. CARDIOVASCULAR: Tachycardic with ectopy, no murmurs, gallops, or rubs. RESPIRATORY: Clear to auscultation. Breath sounds equal bilaterally. No wheezes , rales, or rhonchi. GASTROINTESTINAL: Abdomen soft, distended, mild tenderness to palpation, hyperactive bowel sounds. MUSCULOSKELETAL: Extremities without clubbing, cyanosis, or edema. No joint tenderness, effusion, or edema noted. No calf tenderness. NEUROLOGICAL: Awake and alert. Cranial nerves II through XII intact. Motor and sensory grossly within normal limits. Five out of 5 muscle strength in all muscle groups. Normal speech. A/P Problem List: (1) Nausea & vomiting ICD Code: R11.2 - Nausea with vomiting, unspecified (2) Acute renal failure ICD Code: N17.9 - Acute kidney failure, unspecified Status: Acute Assessment and Plan 67-year-old male with PMH of HTN, HLD, CVA and dementia who presents to the ED due to ongoing diarrhea and nausea. EMR was reviewed, patient was recently in [place] [facility] on 09/24 due to the same issues. He was admitted and later discharged on 09/25. During his stay his initial creatinine 2.7, with BUN 33. CT of abd/ pelvis with fluid filled loops in the small bowel no obstruction. He was treated with IVF, nausea resolved and he was discharged. AMAURY Hypokalemia Secondary to severe dehydration from nausea and vomiting Creatinine 5.98, BUN 69, GFR 9 on admission. Kidney function was noted worsening patient is started on HD 09/30/17. Provided with NS IV 2L bolus in the ED, continue IV hydration. Patient blood pressure was noted very low and received 1 L normal saline morning 09/30/17. Change IV fluids to half normal saline with 75 mEq bicarbonate 75 cc/h Follow renal function and electrolytes, I&O, avoid nephrotoxins Nephrology consulted and following, appreciate recommendations. Patient on HD Hyponatremia Hypermagnesemia Hypokalemia Likely secondary to ongoing diarrhea C diff colitis . Stool positive for C diff. Patient with AMAURY on HD now Start flagyl IV as patient not able to take PO 2/2 vomiting Consult ID IV 1/2 NS, follow electrolytes in the AM Diarrhea/nausea Patient has been around small grandchildren who have similar symptoms, concern of Rotavirus. Mild leukocytosis with neutrophil count of 74.1, afebrile without tachycardia. CT of abd/pelvis reviewed, mild to moderate diffuse nonspecific dilatation of the small bowel, pattern is not significantly changed compared to the prior examination. Stable hepatic cysts. Check stool for c.diff, O&P, enteric pathogen and WBC's PRN Zofran for nausea HTN HLD Hx CVA Will hold off on antihypertensives due to severe dehydration. Patient's BP on arrival to ED 91/50 Patient was noted with low BP and received bolus NS 08/31/17. monitor VS. Continue home dose statin and ASA SOB 2/2 atelectasis. Monitor for signs of infection: CXR reviewed with atelectasis. Add IS. Dementia- Continue home dose of Aricept DVT prophylaxis- SCD's Discussed with patient, nurse and at bedside. Discharge plan pending improvement and clearance by nephrology. Problem Qualifiers (1) Acute renal failure: Qualified Codes: N17.9 - Acute kidney failure, unspecified Genny Turcios MD October 01, 2017 10:19
[2017-10-01] MEDS: DONEPEZIL HCL 5 MG TAB PO SCH (12:18)
[2017-10-01] MEDS: CETIRIZINE HCL 10 MG TAB PO SCH (12:21)
[2017-10-01] MEDS: ASPIRIN 81 MG CHEW TAB PO SCH (12:21)
[2017-10-01] MEDS: PARoxetine HCL 20 MG TAB PO SCH (12:21)
[2017-10-01] MEDS: SODIUM CHLOR 0.45% 1000 ML INJ 1,000 ML IV SCH ×2 (12:31→20:23)
[2017-10-01 17:39] LABS: AUTOMATED NEUTROPHIL # 10.2 TH/MM3 (1.8-7.7); BASOPHIL # 0.1 TH/MM3 (0-0.2); EOSINOPHIL # 0.2 TH/MM3 (0-0.4); EOSINOPHIL % 1.7 % (0.0-4.0); HEMATOCRIT 36.5 % (39.0-51.0); HEMOGLOBIN 12.7 GM/DL (13.0-17.0); LYMPH % 13.2 % (9.0-44.0); LYMPHOCYTE # 1.8 TH/MM3 (1.0-4.8); MEAN CELL VOLUME 93.2 FL (80.0-100.0); MEAN CORPUSCULAR HEMOGLOBIN 32.6 PG (27.0-34.0); MEAN CORPUSCULAR HGB CONC 34.9 % (32.0-36.0); MEAN PLATELET VOLUME 8.8 FL (7.0-11.0); MONO % 7.7 % (0.0-8.0); NEUT % 76.4 % (16.0-70.0); PLATELET COUNT 154 TH/MM3 (150-450); RED BLOOD COUNT 3.91 MIL/MM3 (4.50-5.90); RED CELL DISTRIBUTION WIDTH 13.7 % (11.6-17.2); WHITE BLOOD COUNT 13.3 TH/MM3 (4.0-11.0)
[2017-10-01] MEDS: ATORVASTATIN 10 MG TAB PO SCH (20:23)
[2017-10-02] VITALS (23 sets, daily range): BP systolic 96–116; BP diastolic 62–74; PULSE 46–82; RESP 18–20; TEMP 97.9–98.4; O2SAT 96–99
[2017-10-02 06:02] LABS: AUTOMATED NEUTROPHIL # 8.9 TH/MM3 (1.8-7.7); BASOPHIL % 0.2 % (0.0-2.0); EOSINOPHIL # 0.2 TH/MM3 (0-0.4); HEMATOCRIT 33.9 % (39.0-51.0); HEMOGLOBIN 11.8 GM/DL (13.0-17.0); LYMPH % 14.8 % (9.0-44.0); LYMPHOCYTE # 1.8 TH/MM3 (1.0-4.8); MEAN CORPUSCULAR HEMOGLOBIN 32.2 PG (27.0-34.0); MEAN CORPUSCULAR HGB CONC 34.9 % (32.0-36.0); MEAN PLATELET VOLUME 8.8 FL (7.0-11.0); MONO % 8.6 % (0.0-8.0); NEUT % 74.4 % (16.0-70.0); PLATELET COUNT 143 TH/MM3 (150-450); RED BLOOD COUNT 3.68 MIL/MM3 (4.50-5.90); RED CELL DISTRIBUTION WIDTH 13.7 % (11.6-17.2); WHITE BLOOD COUNT 11.9 TH/MM3 (4.0-11.0)
[2017-10-02 06:38] LABS: BICARBONATE 26.5 MEQ/L (21.0-32.0); CALCIUM 7.9 MG/DL (8.5-10.1); CREATININE 2.29 MG/DL (0.60-1.30)
[2017-10-02] MEDS: CETIRIZINE HCL 10 MG TAB PO SCH (08:43)
[2017-10-02] MEDS: DONEPEZIL HCL 5 MG TAB PO SCH (08:44)
[2017-10-02] MEDS: ASPIRIN 81 MG CHEW TAB PO SCH (08:44)
[2017-10-02] MEDS: PARoxetine HCL 20 MG TAB PO SCH (08:44)
[2017-10-02] MEDS: metroNIDAZOLE 500 MG INJ 100 ML IV SCH (09:04)
[2017-10-02] MEDS: VANCOMYCIN 500 MG VIAL (FOR ORAL USE ONLY) PO SCH ×4 (11:19→19:43)
--- NOTE | 2017-10-02 14:20 | HHI.NPPN ---
Subjective Renal Failure: Acute Objective Data Data Vital Signs Date Time Temp Pulse Resp B/P (MAP) Pulse Ox O2 Delivery O2 Flow Rate FiO2 10/02/17 11:30 52 10/02/17 11:30 98.0 82 18 106/66 (79) 97 10/02/17 11:00 97 10/02/17 08:00 54 10/02/17 08:00 97 Room Air 10/02/17 08:00 98.4 54 18 104/67 (79) 97 10/02/17 06:00 70 10/02/17 05:00 65 10/02/17 04:00 Room Air 10/02/17 04:00 66 10/02/17 04:00 98.4 66 18 96/62 (73) 96 10/02/17 03:00 72 10/02/17 02:00 69 10/02/17 01:00 73 10/02/17 00:00 Room Air 10/02/17 00:00 98.2 70 20 106/74 (85) 96 10/02/17 00:00 70 10/01/17 23:00 76 10/01/17 22:05 21 10/01/17 22:00 75 10/01/17 21:00 73 10/01/17 20:00 Room Air 10/01/17 20:00 98.8 77 20 125/76 (92) 97 10/01/17 20:00 77 10/01/17 16:00 98.0 77 18 120/74 (89) 98 -: 10/02/17 0523 10/02/17 0523 Tubes & Lines: Vas-Cath Physical Exam General Appearance: Well Developed, Well Nourished, Comfortable Eyes Eye Exam: Pupils Equal Throat Throat Exam: Oral Mucosa [place] & Moist Neck Neck Exam: Neck Supple Pulmonary Resp Exam: Clear Bilaterally, Breath Sounds Equal Cardiology CV Exam: Regular, Normal Sinus Rhythm Gastrointestinal/Abdomen GI Exam: Soft, Non-Tender, Bowel Sounds Present, Positive Bowel Movement Musculoskeletal MS Exam: Joints Intact, Normal Tone Integumentary Skin Exam: Warm, Dry, Intact Extremeties Extremities Exam: Pedal Pulses Palpable, Trace Edema Neurologic Neuro Exam: Alert, Awake, Oriented, Speech Clear, Moving All Extremities Psychiatric Psych Exam: Appropriate Responses Assessment/Plan Discussed Condition With: Patient Assessment Summary: AMAURY/Acute Renal Failure, Acute Tubular Necrosis, Dehydration Problem List: (1) Acute renal failure ICD Codes: N17.9 - Acute kidney failure, unspecified Status: Acute Plan: He was discharged Wednesday with a creatinine of 1.4, no other labs available Renal failure most likely due to ATN Vascath placed and HD initiated 5/3 Potassium 3.4, give potassium replacement Creatinine is better await kidney function recovery HD Wednesday if needed Advance diet as tolerated, po fluids encouraged Repeat labs in AM Avoid nephrotoxic agents (2) Leukocytosis ICD Codes: D72.829 - Elevated white blood cell count, unspecified Plan: Cultures in progress C Diff positive, on IV flagyl Other stool studies negative (3) Nausea & vomiting ICD Codes: R11.2 - Nausea with vomiting, unspecified Status: Resolved Problem Qualifiers (1) Acute renal failure: Qualified Codes: N17.9 - Acute kidney failure, unspecified Teresa Patton MD October 02, 2017 14:20
[2017-10-02] MEDS ORDERED: POTASSIUM CHLORIDE 8 MEQ CONTROLLED RELEASE TAB PO ONE (14:30)
--- NOTE | 2017-10-02 15:20 | PD.ID.CON ---
History of Present Illness Service Infectious disease Consult Requested By Hospitalist service Reason for Consult C. difficile with AMAURY, family request ID for eval of fecal transplant Primary Care Physician Rajendra Johns Jr, DO Diagnoses: History of Present Illness Patient seen and examined with Dr. Rubio This is a 67-year-old male with past medical history significant for hypertension, dyslipidemia, previous CVA and dementia who presented to [facility] ED with complaints of diarrhea and nausea for the past 10 days. Patient was positive for C. difficile and was started on oral vancomycin and IV Flagyl. Patient presented with sepsis with white count of 27.2 and tachycardia with heart rate 108. Patient with acute kidney injury and is currently on hemodialysis under the auspices of Nephrology. His creatinine function has been improving. Infectious disease consultation has been requested to discuss fecal transplant treatment for c diff colitis with patient. Patient seen and examined. Patient is actually doing very good at this time. He is tolerating diet. He denies any complaints of fever or chills. He denies any nausea or vomiting. He reports mild abdominal pain. Initially, patient was having up to 20 watery bowel movements a day but now reports 2-3 semi-formed stools. He denies ever having C. difficile infection in the past. He denies any recent antibiotic use. He denies any recent procedures. He denies any known C. difficile exposure. Discussed with patient at length the criteria for fecal transplant. Given this is the patient's first occurrence of C. difficile infection and the known risk associated with fecal transplant in the acute setting, I do not feel patient is a candidate for fecal transplant at this time. (Dorothy Pinto) Review of Systems Except as stated in HPI: all other systems reviewed are Neg (Dorothy Pinto) Past Family Social History Allergies: Coded Allergies: No Known Allergies (Unverified , 09/29/17) Past Medical History Hypertension Dyslipidemia CVA Dementia History of kidney stones Past Surgical History Right total knee replacement Kidney stone removal Lithotripsy Reported Medications Aspirin Low Dose (Aspirin) 81 Mg Chew 2 Tab PO DAILY Cetirizine (Cetirizine HCl) 10 Mg Chew 10 Mg CHEW DAILY Atorvastatin (Atorvastatin Calcium) 10 Mg Tab 10 Mg PO HS Coq-10 (Coenzyme Q10 (Ubidecarenone)) 30 Mg Cap 1 Cap PO DAILY Zofran Odt (Ondansetron Odt) 4 Mg Tab 4 Mg SL Q8HR PRN Paroxetine (Paroxetine HCl) 20 Mg Tab 20 Mg PO DAILY Valsartan-Hydrochlorothiazide 160-12.5 Mg Tab 1 Tab PO DAILY Donepezil 10 Mg Tab 10 Mg PO DAILY Active Ordered Medications Current Medications Medications (Trade) Dose Ordered Sig/Chaparro Route Start Time Stop Time Status Last Admin (NS Flush) 2 ml UNSCH PRN IVF 09/29/17 16:15 09/30/17 21:16 (Tylenol) 650 mg Q4H PRN PO 09/29/17 18:30 (Narcan Inj) 0.4 mg UNSCH PRN IV PUSH 09/29/17 18:30 (Aspirin Chew) 162 mg DAILY PO 09/30/17 09:00 10/02/17 08:44 (Lipitor) 10 mg HS PO 09/29/17 21:00 10/01/17 20:23 (ZyrTEC) 10 mg DAILY PO 09/30/17 09:00 10/02/17 08:43 (Aricept) 10 mg DAILY PO 09/30/17 09:00 10/02/17 08:44 (Paxil) 20 mg DAILY PO 09/30/17 09:00 10/02/17 08:44 (Compazine Inj) 5 mg Q3H PRN IV PUSH 09/29/17 21:45 09/30/17 03:26 Metronidazole 100 ml @ 100 mls/hr Q8H IV 09/30/17 00:00 10/02/17 09:04 (Phenergan Inj) 25 mg Q6H PRN IM 09/30/17 05:15 09/30/17 05:33 Sodium Chloride 1,000 ml @ 0 mls/hr Q0M PRN OTHER 09/30/17 12:49 (Heparin Inj) 8,000 units UNSCH PRN IV FLUSH 09/30/17 13:00 Sodium Chloride 1,000 ml @ 200 mls/hr Q5H PRN IV 09/30/17 12:49 Sodium Chloride 1,000 ml @ 0 mls/hr Q0M PRN OTHER 09/30/17 12:49 (Mannitol Inj) 12.5 gm UNSCH PRN IV 09/30/17 13:00 Albumin Human 100 ml @ 60 mls/hr UNSCH PRN IV 09/30/17 13:00 (NS Flush) 5 ml UNSCH PRN IV FLUSH 09/30/17 13:00 (Heparin Inj) UNSCH PRN .XX 09/30/17 13:00 (Gentamicin Inj) 20 mg UNSCH PRN OTHER 09/30/17 13:00 (Zofran Inj) 4 mg UNSCH PRN IV PUSH 09/30/17 13:00 (Tylenol) 650 mg UNSCH PRN PO 09/30/17 13:00 (Benadryl) 25 mg UNSCH PRN PO 09/30/17 13:00 (Nitrostat Sl) 0.4 mg UNSCH PRN SL 09/30/17 13:00 (Catapres) 0.1 mg UNSCH PRN PO 09/30/17 13:00 (Gelfoam 12 Mm/7 Mm Top) 1 foam UNSCH PRN TOP 09/30/17 13:00 (NS Flush) UNSCH PRN IV FLUSH 09/30/17 15:30 (Heparin Inj) UNSCH PRN IV FLUSH 09/30/17 15:30 Sodium Chloride 1,000 ml @ 75 mls/hr [id number] IV 09/30/17 18:15 10/01/17 20:23 (VANCOMYCIN for oral use only) 250 mg QID PO 10/02/17 09:00 10/02/17 13:49 Family History Lung cancer Dementia Social History Patient admits to tobacco use of a cigar every now and then. Patient has a history of heavy alcohol use up until 3 months ago. Patient denies any illicit drug use. He is and lives with his . (Dorothy Pinto) Physical Exam Vital Signs Vital Signs Date Time Temp Pulse Resp B/P (MAP) Pulse Ox O2 Delivery O2 Flow Rate FiO2 10/02/17 14:00 50 10/02/17 13:00 54 10/02/17 12:00 60 10/02/17 11:30 52 10/02/17 11:30 98.0 82 18 106/66 (79) 97 10/02/17 11:00 97 10/02/17 11:00 50 10/02/17 10:00 60 10/02/17 09:00 54 10/02/17 08:00 54 10/02/17 08:00 97 Room Air 10/02/17 08:00 98.4 54 18 104/67 (79) 97 10/02/17 06:00 70 10/02/17 05:00 65 10/02/17 04:00 Room Air 10/02/17 04:00 66 10/02/17 04:00 98.4 66 18 96/62 (73) 96 10/02/17 03:00 72 10/02/17 02:00 69 10/02/17 01:00 73 10/02/17 00:00 Room Air 10/02/17 00:00 98.2 70 20 106/74 (85) 96 10/02/17 00:00 70 10/01/17 23:00 76 10/01/17 22:05 21 10/01/17 22:00 75 10/01/17 21:00 73 10/01/17 20:00 Room Air 10/01/17 20:00 98.8 77 20 125/76 (92) 97 10/01/17 20:00 77 10/01/17 16:00 98.0 77 18 120/74 (89) 98 Physical Exam GENERAL: This is a well-nourished, well-developed male patient, in no apparent distress. Awake and alert. Sitting up in bed. Appears comfortable. SKIN: No rashes, ecchymoses or lesions. Cool and dry. HEAD: Atraumatic. Normocephalic. No temporal or scalp tenderness. EYES: Pupils equal round and reactive. Extraocular motions intact. No scleral icterus. No injection or drainage. ENT: Nose without bleeding or purulent drainage. Throat without erythema, tonsillar hypertrophy or exudate. Uvula midline. Airway patent. NECK: Trachea midline. No lymphadenopathy. Supple, nontender, no meningeal signs. CARDIOVASCULAR: Regular rate and rhythm without murmurs, gallops, or rubs. RESPIRATORY: Clear to auscultation. Breath sounds equal bilaterally. No wheezes , rales, or rhonchi. GASTROINTESTINAL: Abdomen soft, non-tender, nondistended. No hepato-splenomegaly , or palpable masses. No guarding. MUSCULOSKELETAL: Extremities without clubbing, cyanosis, or edema. No joint tenderness, effusion, or edema noted. No calf tenderness. NEUROLOGICAL: Awake and alert. Cranial nerves II through XII grossly intact. Motor and sensory grossly within normal limits. No focal neurologic findings appreciated normal speech. PSYCHIATRIC: Appropriate mood and affect. Normal judgment and insight. PIV with no e/o infection Laboratory Laboratory Tests Test 10/01/17 17:25 10/02/17 05:23 White Blood Count 13.3 11.9 Red Blood Count 3.91 3.68 Hemoglobin 12.7 11.8 Hematocrit 36.5 33.9 Mean Corpuscular Volume 93.2 92.0 Mean Corpuscular Hemoglobin 32.6 32.2 Mean Corpuscular Hemoglobin Concent 34.9 34.9 Red Cell Distribution Width 13.7 13.7 Platelet Count 154 143 Mean Platelet Volume 8.8 8.8 Neutrophils (%) (Auto) 76.4 74.4 Lymphocytes (%) (Auto) 13.2 14.8 Monocytes (%) (Auto) 7.7 8.6 Eosinophils (%) (Auto) 1.7 2.0 Basophils (%) (Auto) 1.0 0.2 Neutrophils # (Auto) 10.2 8.9 Lymphocytes # (Auto) 1.8 1.8 Monocytes # (Auto) 1.0 1.0 Eosinophils # (Auto) 0.2 0.2 Basophils # (Auto) 0.1 0.0 CBC Comment DIFF FINAL DIFF FINAL Differential Comment Blood Urea Nitrogen 38 Creatinine 2.29 Random Glucose 93 Calcium Level 7.9 Sodium Level 141 Potassium Level 3.4 Chloride Level 105 Carbon Dioxide Level 26.5 Anion Gap 10 Estimat Glomerular Filtration Rate 29 Date/Time Source Procedure Growth Status 09/29/17 21:17 Blood Peripheral Aerobic Blood Culture - Preliminary NO GROWTH IN 3 DAYS Resulted 09/29/17 21:17 Blood Peripheral Anaerobic Blood Culture - Preliminary NO GROWTH IN 3 DAYS Resulted 09/29/17 21:33 Stool Stool Cryptosporidium Exam - Final NEGATIVE - NO CRYPTOSPORIDIUM ANTIGEN... Complete 09/29/17 21:33 Stool Stool Stool Pus (SANDEEP) - Final NO WBC'S SEEN Complete 09/29/17 21:33 Stool Stool Giardia Antigen (SANDEEP) - Final NEGATIVE - NO GIARDIA ANTIGEN DETECTE... Complete (Dorothy Pinto) Result Diagram: 10/02/17 0523 10/02/17 0523 Imaging Last Impressions Chest X-Ray 09/30/17 0000 Signed Impressions: Service Date/Time: September 09:12 - CONCLUSION: Stable chest x-ray with bibasilar airspace opacity most likely representing atelectasis. Kaushik Brooke MD Catheter Placement X-Ray 09/30/17 Signed Impressions: Service Date/Time: September 15:18 - CONCLUSION: Uncomplicated 14 Portuguese Vas-Cath placement as above. Jhony Razo MD Renal Ultrasound 09/29/17 Signed Impressions: Service Date/Time: Friday, September 29, 2017 22:58 - CONCLUSION: Negative exam. Both kidneys are sonographically normal. Nelson Carmona MD Abdomen/Pelvis CT 09/29/17 Signed Impressions: Service Date/Time: Friday, September 29, 2017 16:26 - CONCLUSION: 1. There continues to be some mild to moderate diffuse nonspecific dilatation of the small bowel. This pattern is not significantly changed compared to the prior examination. 2. Stable hepatic cysts. 3. No new or significant changes compared to the prior exam. Julien Pandey MD (Dorothy Pinto) Assessment and Plan Assessment and Plan ASSESSMENT: Sepsis with leukocytosis with white count 27.2, tachycardia with heart rate of 108 and source of C diff colitis, 1st occurrence -improving on current regimen Acute renal failure likely related to ATN on HD -Nephrology following HTN Dyslipidemia CVA Dementia RECOMMENDATIONS: Discontinue IV Metronidazole Continue on oral Vancomycin Lengthy discussion with patient regarding fecal transplant, do not feel patient is candidate for fecal transplant at this time secondary to first occurrence and risk factors associated with fecal transplant in the acute setting. All of patient's questions were addressed and answered. Patient is in agreement to not proceed forward with fecal transplant at this time. Monitor stools Monitor for clinical improvement Further recommendations to follow (Dorothy Pinto) Assessment and Plan The exam, history, and the medical decision-making described in the above note were completed with the assistance of the mid-level provider. I reviewed and agree with the findings presented. I attest that I had a [id number] encounter with the patient on the same day, and personally performed and documented my assessment and findings in the medical record. Patient reports approx 20 bowels/day prior to admission. Denies any recent antibiotic use. Last hospitalization was 3 yrs back for knee hardware placement. No antibiotic use over the winter last or last year. Denies any exposure to patients with Cdiff. Does endorse his 2 grand children have diarrhea. On exam: No abd tenderness CTA BL. C. difficile positive diarrhea, no clinical evidence of colitis. Leukocytosis likely secondary to C. difficile Acute renal failure likely prerenal due to profuse diarrhea Recommendations: Discontinue Flagyl IV Continue vancomycin oral Avoid systemic antibiotics Patient is not a candidate for fecal transplant at the present time. Explained to him the risks associated with fecal transplant. Also explained to him that usually this is reserved as a last resort for patients with recurrent more at least more than 2 separate episodes of diarrhea proven to be C. difficile. Patient is in agreement and would like to avoid a fecal transplant as well. Agrees with medical management of C. difficile. Counseled about environmental cleaning as well as personal hygiene and washing hands with soap and water to prevent reinfection with C. difficile. Also emphasized the need to avoid systemic antibiotics of any sorts unless absolutely needed. Discussed with RN. Discussed with Dr. Turcios. (Benita Rubio MD) Dorothy Pinto October 02, 2017 15:20 Benita Rubio MD October 02, 2017 16:05
--- NOTE | 2017-10-02 15:33 | HHI.PR ---
Subjective Remarks The patient was seen earlier today. Says had more diarrhea overnight however seems stool is forming now. Added vancomycin. Patient denies fever or chills. No abdominal pain at this time. Denies any chest pain or shortness of breath. Feels very tired. Says that he was able to eat half a sandwich without nausea or vomiting. Encourage p.o. hydration Objective Vitals Vital Signs Date Time Temp Pulse Resp B/P (MAP) Pulse Ox O2 Delivery O2 Flow Rate FiO2 10/02/17 14:00 50 10/02/17 13:00 54 10/02/17 12:00 60 10/02/17 11:30 52 10/02/17 11:30 98.0 82 18 106/66 (79) 97 10/02/17 11:00 97 10/02/17 11:00 50 10/02/17 10:00 60 10/02/17 09:00 54 10/02/17 08:00 54 10/02/17 08:00 97 Room Air 10/02/17 08:00 98.4 54 18 104/67 (79) 97 10/02/17 06:00 70 10/02/17 05:00 65 10/02/17 04:00 Room Air 10/02/17 04:00 66 10/02/17 04:00 98.4 66 18 96/62 (73) 96 10/02/17 03:00 72 10/02/17 02:00 69 10/02/17 01:00 73 10/02/17 00:00 Room Air 10/02/17 00:00 98.2 70 20 106/74 (85) 96 10/02/17 00:00 70 10/01/17 23:00 76 10/01/17 22:05 21 10/01/17 22:00 75 10/01/17 21:00 73 10/01/17 20:00 Room Air 10/01/17 20:00 98.8 77 20 125/76 (92) 97 10/01/17 20:00 77 10/01/17 16:00 98.0 77 18 120/74 (89) 98 I/O 10/01/17 10/01/17 10/01/17 10/02/17 10/02/17 10/02/17 07:00 15:00 23:00 07:00 15:00 23:00 Intake Total 1267 ml 1810 ml Output Total 1000 ml 2000 ml 675 ml Balance 267 ml -2000 ml -675 ml 1810 ml Intake Oral 480 ml 960 ml IV Total 787 ml 850 ml Output Urine Total 500 ml 675 ml Stool Total 500 ml Hemodialysis 2000 ml # Voids 5 4 # Bowel Movements 3 4 Result Diagram: 10/02/17 0523 10/02/17 0523 Imaging Last Impressions Chest X-Ray 09/30/17 0000 Signed Impressions: Service Date/Time: September 09:12 - CONCLUSION: Stable chest x-ray with bibasilar airspace opacity most likely representing atelectasis. Kaushik Brooke MD Catheter Placement X-Ray 09/30/17 0000 Signed Impressions: Service Date/Time: September 15:18 - CONCLUSION: Uncomplicated 14 Vietnamese Vas-Cath placement as above. Jhony Razo MD Renal Ultrasound 09/29/17 0000 Signed Impressions: Service Date/Time: Friday, September 29, 2017 22:58 - CONCLUSION: Negative exam. Both kidneys are sonographically normal. Nelson Carmona MD Abdomen/Pelvis CT 09/29/17 0000 Signed Impressions: Service Date/Time: Friday, September 29, 2017 16:26 - CONCLUSION: 1. There continues to be some mild to moderate diffuse nonspecific dilatation of the small bowel. This pattern is not significantly changed compared to the prior examination. 2. Stable hepatic cysts. 3. No new or significant changes compared to the prior exam. Julien Pandey MD Objective Remarks GENERAL: This is a well-nourished, well-developed patient, in no apparent distress. CARDIOVASCULAR: Tachycardic with ectopy, no murmurs, gallops, or rubs. RESPIRATORY: Clear to auscultation. Breath sounds equal bilaterally. No wheezes , rales, or rhonchi. GASTROINTESTINAL: Abdomen soft, distended, mild tenderness to palpation, hyperactive bowel sounds. MUSCULOSKELETAL: Extremities without clubbing, cyanosis, or edema. No joint tenderness, effusion, or edema noted. No calf tenderness. NEUROLOGICAL: Awake and alert. Cranial nerves II through XII intact. Motor and sensory grossly within normal limits. Five out of 5 muscle strength in all muscle groups. Normal speech. A/P Problem List: (1) Nausea & vomiting ICD Code: R11.2 - Nausea with vomiting, unspecified Status: Resolved (2) Acute renal failure ICD Code: N17.9 - Acute kidney failure, unspecified Status: Acute Assessment and Plan 67-year-old male with PMH of HTN, HLD, CVA and dementia who presents to the ED due to ongoing diarrhea and nausea. EMR was reviewed, patient was recently in [facility] on 09/24 due to the same issues. He was admitted and later discharged on 09/25. During his stay his initial creatinine 2.7, with BUN 33. CT of abd/ pelvis with fluid filled loops in the small bowel no obstruction. He was treated with IVF, nausea resolved and he was discharged. AMAURY Hypokalemia Secondary to severe dehydration from nausea and vomiting Creatinine 5.98, BUN 69, GFR 9 on admission. Kidney function was noted worsening patient is started on HD 09/30/17. Provided with NS IV 2L bolus in the ED, continue IV hydration. Patient blood pressure was noted very low and received 1 L normal saline morning 09/30/17. Change IV fluids to half normal saline with 75 mEq bicarbonate 75 cc/h Follow renal function and electrolytes, I&O, avoid nephrotoxins Nephrology consulted and following, appreciate recommendations. Patient on HD Hyponatremia Hypermagnesemia Hypokalemia Likely secondary to ongoing diarrhea C diff colitis . Stool positive for C diff. Patient with AMAURY on HD now Start flagyl IV as patient not able to take PO 2/2 vomiting Consult ID IV 1/2 NS, follow electrolytes in the AM Diarrhea/nausea Patient has been around small grandchildren who have similar symptoms, concern of Rotavirus. Mild leukocytosis with neutrophil count of 74.1, afebrile without tachycardia. CT of abd/pelvis reviewed, mild to moderate diffuse nonspecific dilatation of the small bowel, pattern is not significantly changed compared to the prior examination. Stable hepatic cysts. Check stool for c.diff, O&P, enteric pathogen and WBC's PRN Zofran for nausea HTN HLD Hx CVA Will hold off on antihypertensives due to severe dehydration. Patient's BP on arrival to ED 91/50 Patient was noted with low BP and received bolus NS 08/31/17. monitor VS. Continue home dose statin and ASA SOB 2/2 atelectasis. Monitor for signs of infection: CXR reviewed with atelectasis. Add IS. Dementia- Continue home dose of Aricept DVT prophylaxis- SCD's Discussed with patient, nurse and at bedside. Discharge plan pending improvement and clearance by nephrology. Problem Qualifiers (1) Acute renal failure: Qualified Codes: N17.9 - Acute kidney failure, unspecified Genny Turcios MD October 02, 2017 15:33
[2017-10-02] MEDS: SODIUM CHLOR 0.45% 1000 ML INJ 1,000 ML IV SCH ×2 (15:41→23:29)
[2017-10-02] MEDS: ATORVASTATIN 10 MG TAB PO SCH (19:44)
[2017-10-03] VITALS (24 sets, daily range): BP systolic 115–155; BP diastolic 73–81; PULSE 50–82; RESP 18–20; TEMP 97.9–98.4; O2SAT 97–99
[2017-10-03] MEDS: ACETAMINOPHEN 325 MG TAB PO PRN (03:37)
[2017-10-03 05:59] LABS: AUTOMATED NEUTROPHIL # 8.6 TH/MM3 (1.8-7.7); BASOPHIL # 0.1 TH/MM3 (0-0.2); BASOPHIL % 0.6 % (0.0-2.0); EOSINOPHIL # 0.2 TH/MM3 (0-0.4); EOSINOPHIL % 1.8 % (0.0-4.0); LYMPH % 13.7 % (9.0-44.0); LYMPHOCYTE # 1.5 TH/MM3 (1.0-4.8); MEAN CELL VOLUME 92.3 FL (80.0-100.0); MEAN CORPUSCULAR HEMOGLOBIN 32.6 PG (27.0-34.0); MEAN CORPUSCULAR HGB CONC 35.3 % (32.0-36.0); MEAN PLATELET VOLUME 8.6 FL (7.0-11.0); MONO % 7.8 % (0.0-8.0); MONOCYTE # 0.9 TH/MM3 (0-0.9); NEUT % 76.1 % (16.0-70.0); PLATELET COUNT 139 TH/MM3 (150-450); RED BLOOD COUNT 3.69 MIL/MM3 (4.50-5.90); WHITE BLOOD COUNT 11.2 TH/MM3 (4.0-11.0)
[2017-10-03 06:20] LABS: BICARBONATE 22.1 MEQ/L (21.0-32.0); CALCIUM 7.7 MG/DL (8.5-10.1); CREATININE 1.81 MG/DL (0.60-1.30)
[2017-10-03] MEDS: CETIRIZINE HCL 10 MG TAB PO SCH (08:07)
[2017-10-03] MEDS: VANCOMYCIN 500 MG VIAL (FOR ORAL USE ONLY) PO SCH ×4 (08:07→20:16)
[2017-10-03] MEDS: SODIUM CHLORIDE 0.9% FLUSH 10 ML FLUSH IVF PRN (08:07)
[2017-10-03] MEDS: PARoxetine HCL 20 MG TAB PO SCH (08:07)
[2017-10-03] MEDS: DONEPEZIL HCL 5 MG TAB PO SCH (08:08)
[2017-10-03] MEDS: ASPIRIN 81 MG CHEW TAB PO SCH (08:08)
--- NOTE | 2017-10-03 08:36 | HHI.IDPN ---
Subjective Subjective Remarks Patient seen and examined on behalf of Dr. Rubio This is a 67-year-old male with past medical history significant for hypertension, dyslipidemia, previous CVA and dementia who presented to [facility] ED with complaints of diarrhea and nausea for the past 10 days. Patient was positive for C. difficile and was started on oral vancomycin and IV Flagyl. Patient presented with sepsis with white count of 27.2 and tachycardia with heart rate 108. Patient with acute kidney injury and is currently on hemodialysis under the auspices of Nephrology. His creatinine function has been improving. Infectious disease consultation has been requested to discuss fecal transplant treatment for c diff colitis with patient. Patient seen and examined. Patient is actually doing very good at this time. He is tolerating diet. He denies any complaints of fever or chills. He denies any nausea or vomiting. He reports mild abdominal pain. Initially, patient was having up to 20 watery bowel movements a day but now reports 2-3 semi-formed stools. He denies ever having C. difficile infection in the past. He denies any recent antibiotic use. He denies any recent procedures. He denies any known C. difficile exposure. Discussed with patient at length the criteria for fecal transplant. Given this is the patient's first occurrence of C. difficile infection and the known risk associated with fecal transplant in the acute setting, I do not feel patient is a candidate for fecal transplant at this time. Overnight events reviewed, dw nursing staff Daughter at the bedside c/o hiccups stooling improving, 4 semiformed BMs yesterday, 1 soft semiformed BM this am tolerating diet no N/V no abdominal pain no fever/chills no rash no dysuria afebrile WBC stable at 11.2 kidney fxn improving Antibiotics Vancomycin 250mg po QID Current Medications Medications (Trade) Dose Ordered Sig/[place] Route Start Time Stop Time Status Last Admin (NS Flush) 2 ml UNSCH PRN IVF 09/29/17 16:15 09/30/17 21:16 (Tylenol) 650 mg Q4H PRN PO 09/29/17 18:30 10/03/17 03:37 (Narcan Inj) 0.4 mg UNSCH PRN IV PUSH 09/29/17 18:30 (Aspirin Chew) 162 mg DAILY PO 09/30/17 09:00 10/02/17 08:44 (Lipitor) 10 mg HS PO 09/29/17 21:00 10/02/17 19:44 (ZyrTEC) 10 mg DAILY PO 09/30/17 09:00 10/02/17 08:43 (Aricept) 10 mg DAILY PO 09/30/17 09:00 10/02/17 08:44 (Paxil) 20 mg DAILY PO 09/30/17 09:00 10/02/17 08:44 (Compazine Inj) 5 mg Q3H PRN IV PUSH 09/29/17 21:45 09/30/17 03:26 (Phenergan Inj) 25 mg Q6H PRN IM 09/30/17 05:15 09/30/17 05:33 Sodium Chloride 1,000 ml @ 0 mls/hr Q0M PRN OTHER 09/30/17 12:49 (Heparin Inj) 8,000 units UNSCH PRN IV FLUSH 09/30/17 13:00 Sodium Chloride 1,000 ml @ 200 mls/hr Q5H PRN IV 09/30/17 12:49 Sodium Chloride 1,000 ml @ 0 mls/hr Q0M PRN OTHER 09/30/17 12:49 (Mannitol Inj) 12.5 gm UNSCH PRN IV 09/30/17 13:00 Albumin Human 100 ml @ 60 mls/hr UNSCH PRN IV 09/30/17 13:00 (NS Flush) 5 ml UNSCH PRN IV FLUSH 09/30/17 13:00 (Heparin Inj) UNSCH PRN .XX 09/30/17 13:00 (Gentamicin Inj) 20 mg UNSCH PRN OTHER 09/30/17 13:00 (Zofran Inj) 4 mg UNSCH PRN IV PUSH 09/30/17 13:00 (Tylenol) 650 mg UNSCH PRN PO 09/30/17 13:00 (Benadryl) 25 mg UNSCH PRN PO 09/30/17 13:00 (Nitrostat Sl) 0.4 mg UNSCH PRN SL 09/30/17 13:00 (Catapres) 0.1 mg UNSCH PRN PO 09/30/17 13:00 (Gelfoam 12 Mm/7 Mm Top) 1 foam UNSCH PRN TOP 09/30/17 13:00 (NS Flush) UNSCH PRN IV FLUSH 09/30/17 15:30 (Heparin Inj) UNSCH PRN IV FLUSH 09/30/17 15:30 Sodium Chloride 1,000 ml @ 75 mls/hr [id number] IV 09/30/17 18:15 10/02/17 23:29 (VANCOMYCIN for oral use only) 250 mg QID PO 10/02/17 09:00 10/02/17 19:43 Lines PIV with no e/o infection Past Medical History Hypertension Dyslipidemia CVA Dementia History of kidney stones (Dorothy Pinto) Allergies: Coded Allergies: No Known Allergies (Unverified , 09/29/17) Objective . Vital Signs Date Time Temp Pulse Resp B/P (MAP) Pulse Ox O2 Delivery O2 Flow Rate FiO2 10/03/17 06:00 58 10/03/17 05:00 59 10/03/17 04:00 58 10/03/17 04:00 Room Air 10/03/17 04:00 98.1 58 18 121/73 (89) 98 10/03/17 03:00 54 10/03/17 02:00 56 10/03/17 01:00 52 10/03/17 00:00 53 10/03/17 00:00 98.4 53 20 115/73 (87) 99 10/03/17 00:00 Room Air 10/02/17 23:00 55 10/02/17 22:00 56 10/02/17 21:00 59 10/02/17 20:00 97 Room Air 10/02/17 20:00 66 10/02/17 20:00 98.2 53 20 116/69 (85) 99 10/02/17 18:00 46 10/02/17 17:00 48 10/02/17 16:00 97.9 59 18 110/62 (78) 97 10/02/17 16:00 50 10/02/17 15:00 50 10/02/17 14:00 50 10/02/17 13:00 54 10/02/17 12:00 60 10/02/17 11:30 52 10/02/17 11:30 98.0 82 18 106/66 (79) 97 10/02/17 11:00 97 10/02/17 11:00 50 10/02/17 10:00 60 10/02/17 09:00 54 . Laboratory Tests Test 10/01/17 17:25 10/02/17 05:23 10/03/17 05:42 White Blood Count 13.3 TH/MM3 11.9 TH/MM3 11.2 TH/MM3 Red Blood Count 3.91 MIL/MM3 3.68 MIL/MM3 3.69 MIL/MM3 Hemoglobin 12.7 GM/DL 11.8 GM/DL 12.0 GM/DL Hematocrit 36.5 % 33.9 % 34.0 % Mean Corpuscular Volume 93.2 FL 92.0 FL 92.3 FL Mean Corpuscular Hemoglobin 32.6 PG 32.2 PG 32.6 PG Mean Corpuscular Hemoglobin Concent 34.9 % 34.9 % 35.3 % Red Cell Distribution Width 13.7 % 13.7 % 14.0 % Platelet Count 154 TH/MM3 143 TH/MM3 139 TH/MM3 Mean Platelet Volume 8.8 FL 8.8 FL 8.6 FL Neutrophils (%) (Auto) 76.4 % 74.4 % 76.1 % Lymphocytes (%) (Auto) 13.2 % 14.8 % 13.7 % Monocytes (%) (Auto) 7.7 % 8.6 % 7.8 % Eosinophils (%) (Auto) 1.7 % 2.0 % 1.8 % Basophils (%) (Auto) 1.0 % 0.2 % 0.6 % Neutrophils # (Auto) 10.2 TH/MM3 8.9 TH/MM3 8.6 TH/MM3 Lymphocytes # (Auto) 1.8 TH/MM3 1.8 TH/MM3 1.5 TH/MM3 Monocytes # (Auto) 1.0 TH/MM3 1.0 TH/MM3 0.9 TH/MM3 Eosinophils # (Auto) 0.2 TH/MM3 0.2 TH/MM3 0.2 TH/MM3 Basophils # (Auto) 0.1 TH/MM3 0.0 TH/MM3 0.1 TH/MM3 CBC Comment DIFF FINAL DIFF FINAL DIFF FINAL Differential Comment Laboratory Tests Test 10/02/17 05:23 10/03/17 05:42 Blood Urea Nitrogen 38 MG/DL 30 MG/DL Creatinine 2.29 MG/DL 1.81 MG/DL Random Glucose 93 MG/DL 121 MG/DL Calcium Level 7.9 MG/DL 7.7 MG/DL Sodium Level 141 MEQ/L 137 MEQ/L Potassium Level 3.4 MEQ/L 3.0 MEQ/L Chloride Level 105 MEQ/L 105 MEQ/L Carbon Dioxide Level 26.5 MEQ/L 22.1 MEQ/L Anion Gap 10 MEQ/L 10 MEQ/L Estimat Glomerular Filtration Rate 29 ML/MIN 37 ML/MIN Imaging Last Impressions Chest X-Ray 09/30/17 0000 Signed Impressions: Service Date/Time: September 09:12 - CONCLUSION: Stable chest x-ray with bibasilar airspace opacity most likely representing atelectasis. Kaushik Brooke MD Catheter Placement X-Ray 09/30/17 0000 Signed Impressions: Service Date/Time: September 15:18 - CONCLUSION: Uncomplicated 14 Egyptian Vas-Cath placement as above. Jhony Razo MD Renal Ultrasound 09/29/17 0000 Signed Impressions: Service Date/Time: Friday, September 29, 2017 22:58 - CONCLUSION: Negative exam. Both kidneys are sonographically normal. Nelson Carmona MD Abdomen/Pelvis CT 09/29/17 0000 Signed Impressions: Service Date/Time: Friday, September 29, 2017 16:26 - CONCLUSION: 1. There continues to be some mild to moderate diffuse nonspecific dilatation of the small bowel. This pattern is not significantly changed compared to the prior examination. 2. Stable hepatic cysts. 3. No new or significant changes compared to the prior exam. Julien Pandey MD Physical Exam GENERAL: This is a well-nourished, well-developed male patient, in no apparent distress. Awake and alert. Sitting up in bedside chair. Daughter at the bedside. SKIN: Warm and dry. No generalized rash. HEAD: Atraumatic. Normocephalic. No temporal or scalp tenderness. EYES: Pupils equal round and reactive. Extraocular motions intact. No scleral icterus. No injection or drainage. ENT: Nose without bleeding or purulent drainage. Throat without erythema, tonsillar hypertrophy or exudate. Uvula midline. Airway patent. NECK: Trachea midline. No lymphadenopathy. Supple, nontender, no meningeal signs. CARDIOVASCULAR: Bradycardic without murmurs, gallops, or rubs. RESPIRATORY: +hiccups. Clear to auscultation. Breath sounds equal bilaterally. No wheezes, rales, or rhonchi. GASTROINTESTINAL: Abdomen soft, non-tender, nondistended. MUSCULOSKELETAL: Extremities without clubbing, cyanosis, or edema. No calf tenderness. NEUROLOGICAL: Awake and alert. Cranial nerves II through XII grossly intact. Motor and sensory grossly within normal limits. No focal neurologic findings appreciated. Normal speech. PSYCHIATRIC: Appropriate mood and affect. Normal judgment and insight. PIV with no e/o infection (Dorothy Pinto) Assessment & Plan Remarks ASSESSMENT: Sepsis C diff positive no clinical e/o colitis, 1st occurrence -clinically improving on current regimen -stool studies negative for enteric pathogens, giardia, crypto -not a candidate for fecal transplant Leukocytosis, likely secondary to C difficile Acute renal failure likely related to ATN on HD -Nephrology following -creatinine improving, now 1.81 Hypokalemia HTN Bradycardia Dyslipidemia CVA Dementia Hep C indeterminate -patient will need to f/u with GI as outpatient Hiccups RECOMMENDATIONS: Continue on oral Vancomycin Continue to monitor clinically Continue to monitor stools d/w patient and daughter at the bedside who were appreciative of care provided (Dorothy Pinto) Remarks The exam, history, and the medical decision-making described in the above note were completed with the assistance of the mid-level provider. I reviewed and agree with the findings presented. I attest that I had a [id number] encounter with the patient on the same day, and personally performed and documented my assessment and findings in the medical record. No fevers No rash Still has 3 unformed stools. More formed than days before. Abd cramping less On exam CTA BL Abd soft NT AAOX3 Recs: Continue oral vanco plan on 2 weeks Avoid systemic antibiotics. counseled about Cdiff related environmental and personal hygiene care. dw and patient dw RN (Benita Rubio MD) Dorothy Pinto October 03, 2017 08:36 Benita Rubio MD October 03, 2017 16:55
--- NOTE | 2017-10-03 08:47 | HHI.PR ---
Subjective Remarks Patient is in bed he is feeling much better today. bowel movements are forming and he does not have any abdominal cramps. Tolerates food no nausea or vomiting. Kidney function is improving. No fever or chills. No chest pain or shortness of breath. Objective Vitals Vital Signs Date Time Temp Pulse Resp B/P (MAP) Pulse Ox O2 Delivery O2 Flow Rate FiO2 10/03/17 06:00 58 10/03/17 05:00 59 10/03/17 04:00 58 10/03/17 04:00 Room Air 10/03/17 04:00 98.1 58 18 121/73 (89) 98 10/03/17 03:00 54 10/03/17 02:00 56 10/03/17 01:00 52 10/03/17 00:00 53 10/03/17 00:00 98.4 53 20 115/73 (87) 99 10/03/17 00:00 Room Air 10/02/17 23:00 55 10/02/17 22:00 56 10/02/17 21:00 59 10/02/17 20:00 97 Room Air 10/02/17 20:00 66 10/02/17 20:00 98.2 53 20 116/69 (85) 99 10/02/17 18:00 46 10/02/17 17:00 48 10/02/17 16:00 97.9 59 18 110/62 (78) 97 10/02/17 16:00 50 10/02/17 15:00 50 10/02/17 14:00 50 10/02/17 13:00 54 10/02/17 12:00 60 10/02/17 11:30 52 10/02/17 11:30 98.0 82 18 106/66 (79) 97 10/02/17 11:00 97 10/02/17 11:00 50 10/02/17 10:00 60 10/02/17 09:00 54 I/O 10/02/17 10/02/17 10/02/17 10/03/17 10/03/17 10/03/17 07:00 15:00 23:00 07:00 15:00 23:00 Intake Total 1810 ml 1100 ml 1710 ml Output Total 600 ml Balance 1810 ml 500 ml 1710 ml Intake Oral 960 ml 960 ml IV Total 850 ml 1100 ml 750 ml Output Urine Total 600 ml # Voids 4 4 # Bowel Movements 4 2 Result Diagram: 10/03/17 0542 10/03/17 0542 Objective Remarks GENERAL: This is a well-nourished, well-developed patient, in no apparent distress. CARDIOVASCULAR: Tachycardic with ectopy, no murmurs, gallops, or rubs. RESPIRATORY: Clear to auscultation. Breath sounds equal bilaterally. No wheezes , rales, or rhonchi. GASTROINTESTINAL: Abdomen soft, distended, mild tenderness to palpation, hyperactive bowel sounds. MUSCULOSKELETAL: Extremities without clubbing, cyanosis, or edema. No joint tenderness, effusion, or edema noted. No calf tenderness. NEUROLOGICAL: Awake and alert. Cranial nerves II through XII intact. Motor and sensory grossly within normal limits. Five out of 5 muscle strength in all muscle groups. Normal speech. A/P Problem List: (1) Nausea & vomiting ICD Code: R11.2 - Nausea with vomiting, unspecified Status: Resolved (2) Acute renal failure ICD Code: N17.9 - Acute kidney failure, unspecified Status: Acute Assessment and Plan 67-year-old male with PMH of HTN, HLD, CVA and dementia who presents to the ED due to ongoing diarrhea and nausea. EMR was reviewed, patient was recently in [place] [facility] on 09/24 due to the same issues. He was admitted and later discharged on 09/25. During his stay his initial creatinine 2.7, with BUN 33. CT of abd/ pelvis with fluid filled loops in the small bowel no obstruction. He was treated with IVF, nausea resolved and he was discharged. AMAURY Hypokalemia Secondary to severe dehydration from nausea and vomiting Creatinine 5.98, BUN 69, GFR 9 on admission. Kidney function was noted worsening patient is started on HD 09/30/17. NS IV 2L bolus in the ED, continue IV hydration. Patient blood pressure was noted very low and received 1 L normal saline morning 09/30/17. Follow renal function and electrolytes, I&O, avoid nephrotoxins Nephrology consulted and following, appreciate recommendations. Patient started on HD per nephro Hyponatremia Hypermagnesemia Hypokalemia Likely secondary to ongoing diarrhea C diff colitis . Stool positive for C diff. Patient with AMAURY on HD now Start flagyl IV as patient not able to take PO 2/2 vomiting Consult ID IV 1/2 NS, follow electrolytes in the AM Diarrhea/nausea Patient has been around small grandchildren who have similar symptoms, concern of Rotavirus. Mild leukocytosis with neutrophil count of 74.1, afebrile without tachycardia. CT of abd/pelvis reviewed, mild to moderate diffuse nonspecific dilatation of the small bowel, pattern is not significantly changed compared to the prior examination. Stable hepatic cysts. Check stool for c.diff, O&P, enteric pathogen and WBC's PRN Zofran for nausea HTN HLD Hx CVA Will hold off on antihypertensives due to severe dehydration. Patient's BP on arrival to ED 91/50 Patient was noted with low BP and received bolus NS 08/31/17. monitor VS. Continue home dose statin and ASA SOB 2/2 atelectasis. Monitor for signs of infection: CXR reviewed with atelectasis. Add IS. Dementia- Continue home dose of Aricept DVT prophylaxis- SCD's Discussed with patient, nurse and at bedside. Discharge plan pending improvement and clearance by nephrology. Problem Qualifiers (1) Acute renal failure: Qualified Codes: N17.9 - Acute kidney failure, unspecified Genny Turcios MD October 03, 2017 08:47
[2017-10-03] MEDS ORDERED: POTASSIUM CHLORIDE 10 MEQ CONTROLLED RELEASE TAB PO ONE (09:00)
--- NOTE | 2017-10-03 13:56 | HHI.NPPN ---
Subjective Renal Failure: Acute Objective Data Data Vital Signs Date Time Temp Pulse Resp B/P (MAP) Pulse Ox O2 Delivery O2 Flow Rate FiO2 10/03/17 09:02 98 21 10/03/17 06:00 58 10/03/17 05:00 59 10/03/17 04:00 58 10/03/17 04:00 Room Air 10/03/17 04:00 98.1 58 18 121/73 (89) 98 10/03/17 03:00 54 10/03/17 02:00 56 10/03/17 01:00 52 10/03/17 00:00 53 10/03/17 00:00 98.4 53 20 115/73 (87) 99 10/03/17 00:00 Room Air 10/02/17 23:00 55 10/02/17 22:00 56 10/02/17 21:00 59 10/02/17 20:00 97 Room Air 10/02/17 20:00 66 10/02/17 20:00 98.2 53 20 116/69 (85) 99 10/02/17 18:00 46 10/02/17 17:00 48 10/02/17 16:00 97.9 59 18 110/62 (78) 97 10/02/17 16:00 50 10/02/17 15:00 50 10/02/17 14:00 50 -: 10/03/17 0542 10/03/17 0542 Tubes & Lines: Vas-Cath Physical Exam General Appearance: Well Developed, Well Nourished, Comfortable Eyes Eye Exam: Pupils Equal Throat Throat Exam: Oral Mucosa [place] & Moist Neck Neck Exam: Neck Supple Pulmonary Resp Exam: Clear Bilaterally, Breath Sounds Equal Cardiology CV Exam: Regular, Normal Sinus Rhythm Gastrointestinal/Abdomen GI Exam: Soft, Non-Tender, Bowel Sounds Present, Positive Bowel Movement Musculoskeletal MS Exam: Joints Intact, Normal Tone Integumentary Skin Exam: Warm, Dry, Intact Extremeties Extremities Exam: Pedal Pulses Palpable, Trace Edema Neurologic Neuro Exam: Alert, Awake, Oriented, Speech Clear, Moving All Extremities Psychiatric Psych Exam: Appropriate Responses Assessment/Plan Discussed Condition With: Patient Assessment Summary: AMAURY/Acute Renal Failure, Acute Tubular Necrosis, Dehydration Problem List: (1) Acute renal failure ICD Codes: N17.9 - Acute kidney failure, unspecified Status: Acute Plan: He was discharged Wednesday with a creatinine of 1.4, no other labs available Renal failure most likely due to ATN Vascath placed and HD initiated 5/3 Potassium 3, give potassium replacement Creatinine is better await kidney function recovery HD ? may not need it Advance diet as tolerated, po fluids encouraged Repeat labs in AM Avoid nephrotoxic agents Dr. Bray to follow (2) Leukocytosis ICD Codes: D72.829 - Elevated white blood cell count, unspecified Plan: Cultures in progress C Diff positive, on IV flagyl Other stool studies negative (3) Nausea & vomiting ICD Codes: R11.2 - Nausea with vomiting, unspecified Status: Resolved Problem Qualifiers (1) Acute renal failure: Qualified Codes: N17.9 - Acute kidney failure, unspecified Teresa Patton MD October 03, 2017 13:56
[2017-10-03] MEDS: ATORVASTATIN 10 MG TAB PO SCH (20:16)
[2017-10-04] VITALS (23 sets, daily range): BP systolic 121–148; BP diastolic 77–92; PULSE 40–88; RESP 16–20; TEMP 97.6–98.5; O2SAT 95–98
[2017-10-04] MEDS: SODIUM CHLOR 0.45% 1000 ML INJ 1,000 ML IV SCH (03:40)
[2017-10-04] MEDS: ACETAMINOPHEN 325 MG TAB PO PRN (03:54)
[2017-10-04 07:41] LABS: AUTOMATED NEUTROPHIL # 8.7 TH/MM3 (1.8-7.7); BASOPHIL % 0.3 % (0.0-2.0); EOSINOPHIL # 0.3 TH/MM3 (0-0.4); EOSINOPHIL % 2.8 % (0.0-4.0); HEMATOCRIT 35.3 % (39.0-51.0); HEMOGLOBIN 12.4 GM/DL (13.0-17.0); LYMPH % 15.4 % (9.0-44.0); LYMPHOCYTE # 1.8 TH/MM3 (1.0-4.8); MEAN CELL VOLUME 92.3 FL (80.0-100.0); MEAN CORPUSCULAR HEMOGLOBIN 32.5 PG (27.0-34.0); MEAN CORPUSCULAR HGB CONC 35.2 % (32.0-36.0); MEAN PLATELET VOLUME 8.6 FL (7.0-11.0); MONO % 6.8 % (0.0-8.0); MONOCYTE # 0.8 TH/MM3 (0-0.9); NEUT % 74.7 % (16.0-70.0); PLATELET COUNT 130 TH/MM3 (150-450); RED BLOOD COUNT 3.83 MIL/MM3 (4.50-5.90); RED CELL DISTRIBUTION WIDTH 13.9 % (11.6-17.2); WHITE BLOOD COUNT 11.6 TH/MM3 (4.0-11.0)
[2017-10-04 08:03] LABS: BICARBONATE 21.5 MEQ/L (21.0-32.0); CALCIUM 7.9 MG/DL (8.5-10.1); CREATININE 1.44 MG/DL (0.60-1.30)
--- NOTE | 2017-10-04 08:07 | HHI.IDPN ---
Subjective Subjective Remarks Patient seen and examined on behalf of Dr. Rubio This is a 67-year-old male with past medical history significant for hypertension, dyslipidemia, previous CVA and dementia who presented to [facility] ED with complaints of diarrhea and nausea for the past 10 days. Patient was positive for C. difficile and was started on oral vancomycin and IV Flagyl. Patient presented with sepsis with white count of 27.2 and tachycardia with heart rate 108. Patient with acute kidney injury and is currently on hemodialysis under the auspices of Nephrology. His creatinine function has been improving. Infectious disease consultation has been requested to discuss fecal transplant treatment for c diff colitis with patient. Patient seen and examined. Patient is actually doing very good at this time. He is tolerating diet. He denies any complaints of fever or chills. He denies any nausea or vomiting. He reports mild abdominal pain. Initially, patient was having up to 20 watery bowel movements a day but now reports 2-3 semi-formed stools. He denies ever having C. difficile infection in the past. He denies any recent antibiotic use. He denies any recent procedures. He denies any known C. difficile exposure. Discussed with patient at length the criteria for fecal transplant. Given this is the patient's first occurrence of C. difficile infection and the known risk associated with fecal transplant in the acute setting, I do not feel patient is a candidate for fecal transplant at this time. Overnight events reviewed patient reports 3 soft semiformed BMs last night, none this am so far reports he is feeling well denies any new complaints able to eat "whatever I want" no fever no N/V no abdominal pain no dysuria remains afebrile WBC stable at 11.7 kidney fxn improving, todays BMP pending Stool studies for other pathogens negative Antibiotics Vancomycin 250mg po QID Current Medications Medications (Trade) Dose Ordered Sig/[place] Route Start Time Stop Time Status Last Admin (NS Flush) 2 ml UNSCH PRN IVF 09/29/17 16:15 10/03/17 08:07 (Tylenol) 650 mg Q4H PRN PO 09/29/17 18:30 10/04/17 03:54 (Narcan Inj) 0.4 mg UNSCH PRN IV PUSH 09/29/17 18:30 (Aspirin Chew) 162 mg DAILY PO 09/30/17 09:00 10/03/17 08:08 (Lipitor) 10 mg HS PO 09/29/17 21:00 10/03/17 20:16 (ZyrTEC) 10 mg DAILY PO 09/30/17 09:00 10/03/17 08:07 (Aricept) 10 mg DAILY PO 09/30/17 09:00 10/03/17 08:08 (Paxil) 20 mg DAILY PO 09/30/17 09:00 10/03/17 08:07 (Compazine Inj) 5 mg Q3H PRN IV PUSH 09/29/17 21:45 09/30/17 03:26 (Phenergan Inj) 25 mg Q6H PRN IM 09/30/17 05:15 09/30/17 05:33 Sodium Chloride 1,000 ml @ 0 mls/hr Q0M PRN OTHER 09/30/17 12:49 (Heparin Inj) 8,000 units UNSCH PRN IV FLUSH 09/30/17 13:00 Sodium Chloride 1,000 ml @ 200 mls/hr Q5H PRN IV 09/30/17 12:49 Sodium Chloride 1,000 ml @ 0 mls/hr Q0M PRN OTHER 09/30/17 12:49 (Mannitol Inj) 12.5 gm UNSCH PRN IV 09/30/17 13:00 Albumin Human 100 ml @ 60 mls/hr UNSCH PRN IV 09/30/17 13:00 (NS Flush) 5 ml UNSCH PRN IV FLUSH 09/30/17 13:00 (Heparin Inj) UNSCH PRN .XX 09/30/17 13:00 (Gentamicin Inj) 20 mg UNSCH PRN OTHER 09/30/17 13:00 (Zofran Inj) 4 mg UNSCH PRN IV PUSH 09/30/17 13:00 (Tylenol) 650 mg UNSCH PRN PO 09/30/17 13:00 (Benadryl) 25 mg UNSCH PRN PO 09/30/17 13:00 (Nitrostat Sl) 0.4 mg UNSCH PRN SL 09/30/17 13:00 (Catapres) 0.1 mg UNSCH PRN PO 09/30/17 13:00 (Gelfoam 12 Mm/7 Mm Top) 1 foam UNSCH PRN TOP 09/30/17 13:00 (NS Flush) UNSCH PRN IV FLUSH 09/30/17 15:30 (Heparin Inj) UNSCH PRN IV FLUSH 09/30/17 15:30 Sodium Chloride 1,000 ml @ 75 mls/hr [id number] IV 09/30/17 18:15 10/04/17 03:40 (VANCOMYCIN for oral use only) 250 mg QID PO 10/02/17 09:00 10/03/17 20:16 Lines PIV with no e/o infection Past Medical History Hypertension Dyslipidemia CVA Dementia History of kidney stones (Dorothy Pinto) Allergies: Coded Allergies: No Known Allergies (Unverified , 09/29/17) Objective . Vital Signs Date Time Temp Pulse Resp B/P (MAP) Pulse Ox O2 Delivery O2 Flow Rate FiO2 10/04/17 07:01 75 10/04/17 05:57 63 10/04/17 05:00 61 10/04/17 04:00 68 10/04/17 04:00 Room Air 10/04/17 04:00 98.3 68 18 148/86 (106) 97 10/04/17 03:00 66 10/04/17 02:00 56 10/04/17 01:00 66 10/04/17 00:00 69 10/04/17 00:00 98.1 69 18 134/92 (106) 98 10/04/17 00:00 Room Air 10/03/17 23:00 66 10/03/17 22:00 56 10/03/17 21:00 63 10/03/17 20:00 58 10/03/17 20:00 Room Air 10/03/17 20:00 98.4 65 20 148/81 (103) 97 10/03/17 18:00 62 10/03/17 17:00 82 10/03/17 16:00 98.2 58 20 155/81 (105) 99 10/03/17 16:00 58 10/03/17 15:00 62 10/03/17 14:00 60 10/03/17 13:00 66 10/03/17 12:00 66 10/03/17 11:15 97.9 70 18 124/79 (94) 98 10/03/17 11:15 79 10/03/17 11:00 58 10/03/17 10:00 60 10/03/17 09:02 98 21 10/03/17 09:00 60 . Laboratory Tests Test 10/03/17 05:42 10/04/17 07:25 White Blood Count 11.2 TH/MM3 11.6 TH/MM3 Red Blood Count 3.69 MIL/MM3 3.83 MIL/MM3 Hemoglobin 12.0 GM/DL 12.4 GM/DL Hematocrit 34.0 % 35.3 % Mean Corpuscular Volume 92.3 FL 92.3 FL Mean Corpuscular Hemoglobin 32.6 PG 32.5 PG Mean Corpuscular Hemoglobin Concent 35.3 % 35.2 % Red Cell Distribution Width 14.0 % 13.9 % Platelet Count 139 TH/MM3 130 TH/MM3 Mean Platelet Volume 8.6 FL 8.6 FL Neutrophils (%) (Auto) 76.1 % 74.7 % Lymphocytes (%) (Auto) 13.7 % 15.4 % Monocytes (%) (Auto) 7.8 % 6.8 % Eosinophils (%) (Auto) 1.8 % 2.8 % Basophils (%) (Auto) 0.6 % 0.3 % Neutrophils # (Auto) 8.6 TH/MM3 8.7 TH/MM3 Lymphocytes # (Auto) 1.5 TH/MM3 1.8 TH/MM3 Monocytes # (Auto) 0.9 TH/MM3 0.8 TH/MM3 Eosinophils # (Auto) 0.2 TH/MM3 0.3 TH/MM3 Basophils # (Auto) 0.1 TH/MM3 0.0 TH/MM3 CBC Comment DIFF FINAL DIFF FINAL Differential Comment Laboratory Tests Test 10/03/17 05:42 10/04/17 07:25 Blood Urea Nitrogen 30 MG/DL Creatinine 1.81 MG/DL Random Glucose 121 MG/DL Calcium Level 7.7 MG/DL Sodium Level 137 MEQ/L Potassium Level 3.0 MEQ/L Chloride Level 105 MEQ/L Carbon Dioxide Level 22.1 MEQ/L Anion Gap 10 MEQ/L Estimat Glomerular Filtration Rate 37 ML/MIN Imaging Last Impressions Chest X-Ray 09/30/17 0000 Signed Impressions: Service Date/Time: September 09:12 - CONCLUSION: Stable chest x-ray with bibasilar airspace opacity most likely representing atelectasis. Kaushik Brooke MD Catheter Placement X-Ray 5/3/18 0000 Signed Impressions: Service Date/Time: September 15:18 - CONCLUSION: Uncomplicated 14 Polish Vas-Cath placement as above. Jhony Razo MD Renal Ultrasound 09/29/17 Signed Impressions: Service Date/Time: Friday, September 29, 2017 22:58 - CONCLUSION: Negative exam. Both kidneys are sonographically normal. Nelson Carmona MD Abdomen/Pelvis CT 09/29/17 Signed Impressions: Service Date/Time: Friday, September 29, 2017 16:26 - CONCLUSION: 1. There continues to be some mild to moderate diffuse nonspecific dilatation of the small bowel. This pattern is not significantly changed compared to the prior examination. 2. Stable hepatic cysts. 3. No new or significant changes compared to the prior exam. Julien Pandey MD Physical Exam GENERAL: This is a well-nourished, well-developed male patient, in no apparent distress. Awake and alert. Sitting up in hospital bed. Appears comfortable. SKIN: Warm and dry. No generalized rash. HEAD: Atraumatic. Normocephalic. No temporal or scalp tenderness. EYES: Pupils equal round and reactive. Extraocular motions intact. No scleral icterus. No injection or drainage. ENT: Nose without bleeding or purulent drainage. Airway patent. No oral lesions. MMM. NECK: Trachea midline. No lymphadenopathy. CARDIOVASCULAR: Regular rate and rhythm without murmurs, gallops, or rubs. RESPIRATORY: Nonlabored. Clear to auscultation. Breath sounds equal bilaterally. No wheezes, rales, or rhonchi. GASTROINTESTINAL: Abdomen soft, non-tender, nondistended. MUSCULOSKELETAL: Extremities without clubbing, cyanosis, or edema. No calf tenderness. NEUROLOGICAL: Awake and alert. Cranial nerves II through XII grossly intact. Motor and sensory grossly within normal limits. No focal neurologic findings appreciated. Normal speech. PSYCHIATRIC: Appropriate mood and affect. Normal judgment and insight. PIV with no e/o infection (Dorothy Pinto) Assessment & Plan Remarks ASSESSMENT: Sepsis C diff positive no clinical e/o colitis, 1st occurrence -clinically improving on current regimen -stool studies negative for enteric pathogens, giardia, crypto -not a candidate for fecal transplant Leukocytosis, likely secondary to C difficile, improved Acute renal failure likely related to ATN on HD -Nephrology following -creatinine improving, now 1.81. Today's BMP pending Hypokalemia HTN Bradycardia Dyslipidemia CVA Dementia Hep C indeterminate -patient will need to f/u with GI as outpatient Hiccups, resolved RECOMMENDATIONS: Continue on oral Vancomycin - plan for 2 week treatment course avoid systemic antibiotics reinforced good hygiene practices to prevent recurrence Continue to monitor clinically (Dorothy Pinto) Remarks The exam, history, and the medical decision-making described in the above note were completed with the assistance of the mid-level provider. I reviewed and agree with the findings presented. I attest that I had a [id number] encounter with the patient on the same day, and personally performed and documented my assessment and findings in the medical record. Ok to DC from ID standpoint once cleared by other consultants. Vanco oral for 2 weeks from date of discharge dw patient and cdiff counseling. Will sign off please call back if any change in clinical condition or questions (Benita Rubio MD) Dorothy Pinto October 04, 2017 08:07 Benita Rubio MD October 04, 2017 15:06
[2017-10-04] MEDS: DONEPEZIL HCL 5 MG TAB PO SCH (08:37)
[2017-10-04] MEDS: ASPIRIN 81 MG CHEW TAB PO SCH (08:37)
[2017-10-04] MEDS: CETIRIZINE HCL 10 MG TAB PO SCH (08:38)
[2017-10-04] MEDS: VANCOMYCIN 500 MG VIAL (FOR ORAL USE ONLY) PO SCH ×4 (08:38→20:43)
[2017-10-04] MEDS: PARoxetine HCL 20 MG TAB PO SCH (08:38)
--- NOTE | 2017-10-04 08:55 | HHI.PR ---
Subjective Remarks Still is forming. Still has a bowel movement every 2 hours overnight. No fever or chills. No abdominal pain. No nausea or vomiting he is able to eat and tolerate fluids. Kidney function is not back at baseline. However no plan for dialysis as kidney function is improving. Remove dialysis cath Objective Vitals Vital Signs Date Time Temp Pulse Resp B/P (MAP) Pulse Ox O2 Delivery O2 Flow Rate FiO2 10/04/17 07:01 75 10/04/17 05:57 63 10/04/17 05:00 61 10/04/17 04:00 68 10/04/17 04:00 Room Air 10/04/17 04:00 98.3 68 18 148/86 (106) 97 10/04/17 03:00 66 10/04/17 02:00 56 10/04/17 01:00 66 10/04/17 00:00 69 10/04/17 00:00 98.1 69 18 134/92 (106) 98 10/04/17 00:00 Room Air 10/03/17 23:00 66 10/03/17 22:00 56 10/03/17 21:00 63 10/03/17 20:00 58 10/03/17 20:00 Room Air 10/03/17 20:00 98.4 65 20 148/81 (103) 97 10/03/17 18:00 62 10/03/17 17:00 82 10/03/17 16:00 98.2 58 20 155/81 (105) 99 10/03/17 16:00 58 10/03/17 15:00 62 10/03/17 14:00 60 10/03/17 13:00 66 10/03/17 12:00 66 10/03/17 11:15 97.9 70 18 124/79 (94) 98 10/03/17 11:15 79 10/03/17 11:00 58 10/03/17 10:00 60 10/03/17 09:02 98 21 10/03/17 09:00 60 I/O 10/03/17 10/03/17 10/03/17 10/04/17 10/04/17 10/04/17 07:00 15:00 23:00 07:00 15:00 23:00 Intake Total 1710 ml 1851 ml 1710 ml Output Total 1000 ml 800 ml Balance 1710 ml 851 ml 910 ml Intake Oral 960 ml 960 ml 960 ml IV Total 750 ml 891 ml 750 ml Output Urine Total 1000 ml 800 ml # Voids 4 4 # Bowel Movements 2 4 4 Result Diagram: 10/04/17 0725 10/04/17 0725 Imaging Last Impressions Chest X-Ray 09/30/17 0000 Signed Impressions: Service Date/Time: September 09:12 - CONCLUSION: Stable chest x-ray with bibasilar airspace opacity most likely representing atelectasis. Kaushik Brooke MD Catheter Placement X-Ray 09/30/17 0000 Signed Impressions: Service Date/Time: September 15:18 - CONCLUSION: Uncomplicated 14 Russian Vas-Cath placement as above. Jhony Razo MD Renal Ultrasound 09/29/17 0000 Signed Impressions: Service Date/Time: Friday, September 29, 2017 22:58 - CONCLUSION: Negative exam. Both kidneys are sonographically normal. Nelson Carmona MD Abdomen/Pelvis CT 09/29/17 0000 Signed Impressions: Service Date/Time: Friday, September 29, 2017 16:26 - CONCLUSION: 1. There continues to be some mild to moderate diffuse nonspecific dilatation of the small bowel. This pattern is not significantly changed compared to the prior examination. 2. Stable hepatic cysts. 3. No new or significant changes compared to the prior exam. Julien Pandey MD Objective Remarks GENERAL: This is a well-nourished, well-developed patient, in no apparent distress. CARDIOVASCULAR: Tachycardic with ectopy, no murmurs, gallops, or rubs. RESPIRATORY: Clear to auscultation. Breath sounds equal bilaterally. No wheezes , rales, or rhonchi. GASTROINTESTINAL: Abdomen soft, distended, mild tenderness to palpation, hyperactive bowel sounds. MUSCULOSKELETAL: Extremities without clubbing, cyanosis, or edema. No joint tenderness, effusion, or edema noted. No calf tenderness. NEUROLOGICAL: Awake and alert. Cranial nerves II through XII intact. Motor and sensory grossly within normal limits. Five out of 5 muscle strength in all muscle groups. Normal speech. A/P Problem List: (1) Nausea & vomiting ICD Code: R11.2 - Nausea with vomiting, unspecified Status: Resolved (2) Acute renal failure ICD Code: N17.9 - Acute kidney failure, unspecified Status: Acute Assessment and Plan 67-year-old male with PMH of HTN, HLD, CVA and dementia who presents to the ED due to ongoing diarrhea and nausea. EMR was reviewed, patient was recently in [place] PO on 09/24 due to the same issues. He was admitted and later discharged on 09/25. During his stay his initial creatinine 2.7, with BUN 33. CT of abd/ pelvis with fluid filled loops in the small bowel no obstruction. He was treated with IVF, nausea resolved and he was discharged. AMAURY Hypokalemia Secondary to severe dehydration from nausea and vomiting Creatinine 5.98, BUN 69, GFR 9 on admission. Kidney function was noted worsening patient is started on HD 09/30/17. NS IV 2L bolus in the ED, continue IV hydration. Patient blood pressure was noted very low and received 1 L normal saline morning 09/30/17. Follow renal function and electrolytes, I&O, avoid nephrotoxins Nephrology consulted and following, appreciate recommendations. Patient started on HD per nephro Hyponatremia Hypermagnesemia Hypokalemia Likely secondary to ongoing diarrhea C diff colitis . Stool positive for C diff. Patient with AMAURY on HD now Start flagyl IV as patient not able to take PO 2/2 vomiting Consult ID IV 1/2 NS, follow electrolytes in the AM Diarrhea/nausea Patient has been around small grandchildren who have similar symptoms, concern of Rotavirus. Mild leukocytosis with neutrophil count of 74.1, afebrile without tachycardia. CT of abd/pelvis reviewed, mild to moderate diffuse nonspecific dilatation of the small bowel, pattern is not significantly changed compared to the prior examination. Stable hepatic cysts. Check stool for c.diff, O&P, enteric pathogen and WBC's PRN Zofran for nausea HTN HLD Hx CVA Will hold off on antihypertensives due to severe dehydration. Patient's BP on arrival to ED 91/50 Patient was noted with low BP and received bolus NS 08/31/17. monitor VS. Continue home dose statin and ASA SOB 2/2 atelectasis. Monitor for signs of infection: CXR reviewed with atelectasis. Add IS. Dementia- Continue home dose of Aricept DVT prophylaxis- SCD's Discussed with patient, nurse and at bedside. Discharge plan pending improvement and clearance by nephrology. Discussed with Dr Rubio infectious disease. Patient to have 2 weeks of vancomycin by mouth from the date of discharge. Kidney function is not back at baseline yet Problem Qualifiers (1) Acute renal failure: Qualified Codes: N17.9 - Acute kidney failure, unspecified Genny Turcios MD October 04, 2017 08:55
[2017-10-04] MEDS ORDERED: POTASSIUM BICARBONATE 25 MEQ EFFERVESCENT TAB PO ONE (09:00)
[2017-10-04] MEDS: LACTATED RINGER'S 1000 ML INJ 1,000 ML IV SCH (11:17)
--- NOTE | 2017-10-04 11:22 | HHI.NPPN ---
Subjective Renal Failure: Acute Interval History Renal function has improved, he is non oliguric. Review of Systems General Constitutional: Fatigue Gastrointestinal Gastrointestinal: Diarrhea Objective Data Data Vital Signs Date Time Temp Pulse Resp B/P (MAP) Pulse Ox O2 Delivery O2 Flow Rate FiO2 10/04/17 08:15 98.4 40 18 129/78 (95) 95 10/04/17 08:15 95 Room Air 10/04/17 07:01 75 10/04/17 05:57 63 10/04/17 05:00 61 10/04/17 04:00 68 10/04/17 04:00 Room Air 10/04/17 04:00 98.3 68 18 148/86 (106) 97 10/04/17 03:00 66 10/04/17 02:00 56 10/04/17 01:00 66 10/04/17 00:00 69 10/04/17 00:00 98.1 69 18 134/92 (106) 98 10/04/17 00:00 Room Air 10/03/17 23:00 66 10/03/17 22:00 56 10/03/17 21:00 63 10/03/17 20:00 58 10/03/17 20:00 Room Air 10/03/17 20:00 98.4 65 20 148/81 (103) 97 10/03/17 18:00 62 10/03/17 17:00 82 10/03/17 16:00 98.2 58 20 155/81 (105) 99 10/03/17 16:00 58 10/03/17 15:00 62 10/03/17 14:00 60 10/03/17 13:00 66 10/03/17 12:00 66 -: 10/04/17 0725 10/04/17 0725 Tubes & Lines: Vas-Cath Physical Exam General Appearance: Well Developed, Well Nourished, Comfortable Eyes Eye Exam: Pupils Equal Throat Throat Exam: Oral Mucosa [place] & Moist Neck Neck Exam: Neck Supple Pulmonary Resp Exam: Clear Bilaterally, Breath Sounds Equal Cardiology CV Exam: Regular, Normal Sinus Rhythm Gastrointestinal/Abdomen GI Exam: Soft, Non-Tender, Bowel Sounds Present, Positive Bowel Movement Musculoskeletal MS Exam: Joints Intact, Normal Tone Integumentary Skin Exam: Warm, Dry, Intact Extremeties Extremities Exam: Pedal Pulses Palpable, Trace Edema Neurologic Neuro Exam: Alert, Awake, Oriented, Speech Clear, Moving All Extremities Psychiatric Psych Exam: Appropriate Responses Assessment/Plan Discussed Condition With: Patient Assessment Summary: AMAURY/Acute Renal Failure, Acute Tubular Necrosis, Dehydration Problem List: (1) Acute renal failure ICD Codes: N17.9 - Acute kidney failure, unspecified Status: Acute Plan: Renal function has improved, dialyzed twice. Non oliguric. Renal function has improved. Diarrhea appears to have improved. Change IVF to lactated Ringer's, taper off as tolerated. No more dialysis is planned, Vascath can be removed. Avoid nephrotoxic agents. Encourage oral intake. (2) Leukocytosis ICD Codes: D72.829 - Elevated white blood cell count, unspecified Plan: Cultures in progress C Diff positive, on IV flagyl Other stool studies negative (3) Nausea & vomiting ICD Codes: R11.2 - Nausea with vomiting, unspecified Status: Resolved Plan: improved. Plan I will sign off at this time. Problem Qualifiers (1) Acute renal failure: Qualified Codes: N17.9 - Acute kidney failure, unspecified Cooper Bray MD October 04, 2017 11:22
[2017-10-04] MEDS: ATORVASTATIN 10 MG TAB PO SCH (20:43)
[2017-10-05] VITALS: BP 137/80; PULSE 72; RESP 20; TEMP 97.7; O2SAT 98
[2017-10-05 04:00] VITALS: BP 132/66; PULSE 69; RESP 20; TEMP 97.8; O2SAT 97
[2017-10-05 08:00] VITALS: BP 134/79; PULSE 60; RESP 18; TEMP 97.4; O2SAT 97
[2017-10-05 08:09] LABS: AUTOMATED NEUTROPHIL # 8.7 TH/MM3 (1.8-7.7); BASOPHIL # 0.1 TH/MM3 (0-0.2); BASOPHIL % 0.5 % (0.0-2.0); EOSINOPHIL # 0.4 TH/MM3 (0-0.4); EOSINOPHIL % 3.4 % (0.0-4.0); HEMATOCRIT 35.4 % (39.0-51.0); HEMOGLOBIN 12.2 GM/DL (13.0-17.0); LYMPHOCYTE # 1.9 TH/MM3 (1.0-4.8); MEAN CELL VOLUME 93.2 FL (80.0-100.0); MEAN CORPUSCULAR HGB CONC 34.4 % (32.0-36.0); MEAN PLATELET VOLUME 9.7 FL (7.0-11.0); MONO % 5.6 % (0.0-8.0); MONOCYTE # 0.7 TH/MM3 (0-0.9); NEUT % 74.5 % (16.0-70.0); PLATELET COUNT 121 TH/MM3 (150-450); RED CELL DISTRIBUTION WIDTH 13.7 % (11.6-17.2); WHITE BLOOD COUNT 11.7 TH/MM3 (4.0-11.0)
[2017-10-05 08:45] LABS: BICARBONATE 22.9 MEQ/L (21.0-32.0); CALCIUM 8.2 MG/DL (8.5-10.1); CREATININE 1.33 MG/DL (0.60-1.30)
[2017-10-05] MEDS: PARoxetine HCL 20 MG TAB PO SCH (09:22)
[2017-10-05] MEDS: VANCOMYCIN 500 MG VIAL (FOR ORAL USE ONLY) PO SCH ×2 (09:22→13:24)
[2017-10-05] MEDS: CETIRIZINE HCL 10 MG TAB PO SCH (09:22)
[2017-10-05] MEDS: ASPIRIN 81 MG CHEW TAB PO SCH (09:22)
[2017-10-05] MEDS: DONEPEZIL HCL 5 MG TAB PO SCH (09:22)
[2017-10-05] MEDS: LACTATED RINGER'S 1000 ML INJ 1,000 ML IV SCH (09:23)
[2017-10-05] MEDS ORDERED: POTASSIUM CHLORIDE 10 MEQ CONTROLLED RELEASE TAB PO ONE (11:00)
[2017-10-05] MEDS ORDERED: VANC250C2 PO (11:09)
--- NOTE | 2017-10-05 11:09 | HHI.DCPOC ---
Discharge Care Plan Diagnosis: (1) C. difficile diarrhea (2) Acute renal failure (3) Nausea & vomiting (4) Electrolyte abnormality Goals to Promote Your Health * To prevent worsening of your condition and complications * To maintain your health at the optimal level Directions to Meet Your Goals Take your medications as prescribed Follow your dietary instruction Follow activity as directed Keep your appointments as scheduled Take your immunizations and boosters as scheduled If your symptoms worsen call your PCP, if no PCP go to Urgent Care Center or Emergency Room Smoking is Dangerous to Your Health. Avoid second hand smoke Call the 24-hour hour crisis hotline for domestic abuse at Toño Soler MD October 05, 2017 11:09
[2017-10-05] MEDS ORDERED: WALKER WHEELS/F1 MIS (11:29)
[2017-10-05 12:00] VITALS: BP 144/67; PULSE 42; RESP 17; TEMP 97.8; O2SAT 96
--- NOTE | 2017-10-05 13:27 | HHI.FF ---
Face to Face Verification Diagnosis: (1) Weakness acquired in ICU (2) C. difficile diarrhea (3) Acute renal failure Physical Therapy Order: Improve ambulation, Strength and gait training Home Health Nursing Order: Medical education Nursing assessment with vital signs I have seen patient Christiano Marroquin on 10/05/17. My clinical findings support the need for the requested home health care services because: Deconditioned w/ increased weakness Infection w/ risk of complications I certify that my clinical findings support that this patient is homebound because: Unsteady gait/balance Unsafe to leave home unassisted Unable to use public transportation Toño Soler MD October 05, 2017 13:27
--- NOTE | 2017-10-05 13:28 | HHI.DS ---
Discharge Summary Admission Date September 29, 2017 at 17:38 Discharge Date: October 05, 2017 Admitting Diagnosis Acute renal failure, bigeminy (1) Nausea & vomiting ICD Code: R11.2 - Nausea with vomiting, unspecified Diagnosis: Principal Status: Resolved (2) Acute renal failure ICD Code: N17.9 - Acute kidney failure, unspecified Diagnosis: Principal Status: Acute Brief History - From Admission Written by Lilliam Quinn, acting as scribe for Dr. Rosenbaum on 09/29/17 at 17:54. 67-year-old male with PMH of HTN, HLD, CVA and dementia who presents to the ED due to ongoing diarrhea and nausea. EMR was reviewed, patient was recently in [facility] on 09/24 due to the same issues. He was admitted and later discharged on 09/25. During his stay his initial creatinine 2.7, with BUN 33. CT of abd/ pelvis with fluid filled loops in the small bowel no obstruction. He was treated with IVF, nausea resolved and he was discharged. Son and are at bedside at the time of my exam and interview and repot that today is day 10 of this issue. When he was discharged patient did seem to get better, however the nausea and diarrhea returned. Son repots that he has two small children at home who have also been ill with similar symptoms. Son's children were negative for the flu virus after being tested but were thought to possibly have a viral infection. He repots that there was no testing of stool done on them as he realized this too late. states that the diarrhea is constant and patient has been having about 20 BMs per day according to . Denies any black or blood in the stool. He has been unable to eat solid foods at home. The majority of the information is gathered from the and son at bedside. Patient denies any fevers, chills, SOB, or chest pain. Patient is requesting to go to a regular room as the beds in the ED are very uncomfortable. CBC/BMP: 10/05/17 0623 10/05/17 0623 Significant Findings Laboratory Tests Test 10/03/17 05:42 10/04/17 07:25 10/05/17 06:23 White Blood Count 11.2 TH/MM3 (4.0-11.0) 11.6 TH/MM3 (4.0-11.0) 11.7 TH/MM3 (4.0-11.0) Red Blood Count 3.69 MIL/MM3 (4.50-5.90) 3.83 MIL/MM3 (4.50-5.90) 3.80 MIL/MM3 (4.50-5.90) Hemoglobin 12.0 GM/DL (13.0-17.0) 12.4 GM/DL (13.0-17.0) 12.2 GM/DL (13.0-17.0) Hematocrit 34.0 % (39.0-51.0) 35.3 % (39.0-51.0) 35.4 % (39.0-51.0) Platelet Count 139 TH/MM3 (150-450) 130 TH/MM3 (150-450) 121 TH/MM3 (150-450) Neutrophils (%) (Auto) 76.1 % (16.0-70.0) 74.7 % (16.0-70.0) 74.5 % (16.0-70.0) Neutrophils # (Auto) 8.6 TH/MM3 (1.8-7.7) 8.7 TH/MM3 (1.8-7.7) 8.7 TH/MM3 (1.8-7.7) Blood Urea Nitrogen 30 MG/DL (7-18) 21 MG/DL (7-18) Creatinine 1.81 MG/DL (0.60-1.30) 1.44 MG/DL (0.60-1.30) 1.33 MG/DL (0.60-1.30) Random Glucose 121 MG/DL (74-106) Calcium Level 7.7 MG/DL (8.5-10.1) 7.9 MG/DL (8.5-10.1) 8.2 MG/DL (8.5-10.1) Potassium Level 3.0 MEQ/L (3.5-5.1) 3.2 MEQ/L (3.5-5.1) 3.3 MEQ/L (3.5-5.1) Estimat Glomerular Filtration Rate 37 ML/MIN (>89) 49 ML/MIN (>89) 53 ML/MIN (>89) Chloride Level 111 MEQ/L (98-107) 111 MEQ/L (98-107) Imaging Last Impressions Chest X-Ray 09/30/17 0000 Signed Impressions: Service Date/Time: September 09:12 - CONCLUSION: Stable chest x-ray with bibasilar airspace opacity most likely representing atelectasis. Kaushik Brooke MD Catheter Placement X-Ray 09/30/17 0000 Signed Impressions: Service Date/Time: September 15:18 - CONCLUSION: Uncomplicated 14 Sinhala Vas-Cath placement as above. Jhony Razo MD Renal Ultrasound 09/29/17 Signed Impressions: Service Date/Time: Friday, September 29, 2017 22:58 - CONCLUSION: Negative exam. Both kidneys are sonographically normal. Nelson Carmona MD Abdomen/Pelvis CT 09/29/17 Signed Impressions: Service Date/Time: Friday, September 29, 2017 16:26 - CONCLUSION: 1. There continues to be some mild to moderate diffuse nonspecific dilatation of the small bowel. This pattern is not significantly changed compared to the prior examination. 2. Stable hepatic cysts. 3. No new or significant changes compared to the prior exam. Julien Pandey MD PE at Discharge GENERAL: This is a well-nourished, well-developed patient, in no apparent distress. CARDIOVASCULAR: Tachycardic with ectopy, no murmurs, gallops, or rubs. RESPIRATORY: Clear to auscultation. Breath sounds equal bilaterally. No wheezes , rales, or rhonchi. GASTROINTESTINAL: Abdomen soft, distended, mild tenderness to palpation, hyperactive bowel sounds. MUSCULOSKELETAL: Extremities without clubbing, cyanosis, or edema. No joint tenderness, effusion, or edema noted. No calf tenderness. NEUROLOGICAL: Awake and alert. Cranial nerves II through XII intact. Motor and sensory grossly within normal limits. Five out of 5 muscle strength in all muscle groups. Normal speech. Pt update on day of discharge Diarrhea has been improving. The patient states that stools are more formed. Has had one episode so far today. Denies abdominal pain, nausea vomiting. Afebrile. Discussed the case with Dr. Rubio who want to send the patient on 14 days of oral vancomycin and to follow-up as an outpatient with Dr. Headley. Pt Condition on Discharge: Stable Discharge Disposition: Disch w/ Home Health Serv Discharge Time: > 30 minutes Discharge Instructions DIET: Follow Instructions for: As Tolerated, No Restrictions Activities you can perform: Regular-No Restrictions Other Activity Instructions: out of bed with assistance Follow up Referrals: Infectious Disease - 1 Week with Jessica Headley MD office number INFORMED THE PATIENT TO CALL AND SCHEDULE FOLLOW UP IN ONE WEEK. SPOKE WITH DESIREE AT DR. HEADLEY OFFICE, NEEDS TO REVIEW THE DISCHARGE INFORMATION BEFORE THEY CAN SCHEDULE THE FOLLOW UP APPOINTMENT. New Medications: Vancomycin (Vancomycin) 250 Mg Cap 250 MG PO QID for Infection, #56 CAP 0 Refills Walker with Front Wheels (Walker with Front Wheels) 1 Mis Mis EA .XX DIRECTED for weakness, #1 0 Refills Continued Medications: Aspirin (Aspirin Low Dose) 81 Mg Chew 2 TAB PO DAILY, TAB 0 Refills Atorvastatin (Atorvastatin) 10 Mg Tab 10 MG PO HS for Cholesterol Management, #30 TAB 0 Refills Cetirizine (Cetirizine) 10 Mg Chew 10 MG CHEW DAILY for Allergies, TAB 0 Refills Coenzyme Q10 (Ubidecarenone) (Coq-10) 30 Mg Cap 1 CAP PO DAILY Donepezil (Donepezil) 10 Mg Tab 10 MG PO DAILY for Dementia, #30 TAB 0 Refills Ondansetron Odt (Zofran Odt) 4 Mg Tab 4 MG SL Q8HR PRN for Nausea/Vomiting, #30 TAB 0 Refills Paroxetine (Paroxetine) 20 Mg Tab 20 MG PO DAILY, #30 TAB 0 Refills Valsartan-Hydrochlorothiazide (Valsartan-Hydrochlorothiazide) 160-12.5 Mg Tab 1 TAB PO DAILY for Blood Pressure Management, #30 TAB 0 Refills Toño Soler MD October 05, 2017 13:28
--- NOTE | 2017-10-05 19:32 | PQ ---
Physician Query Response Document PATIENT: MARISOL DHALIWAL : 1950 ADMIT DATE: 09/29/2017 5:38 PM DISCH DATE: 10/05/2017 2:39 PM RESPONDING PROVIDER #: [email or web address] QUERY TEXT: CDS Clarification Sepsis due to anaerobes, POA requiring treatment with antibiotics. Other explanation of clinical findings. Unable to determine (no explanation for clinical findings). Please clarify and document your clinical opinion in the progress notes and discharge summary includi ng the definitive and/or presumptive diagnosis (suspected or probable), related to the above clinical findings. Please include clinical findings supporting your diagnosis. Thank you, Krystina Escamilla CDS: Krystina Escamilla Patient Unit: [facility] Contact Number: CDS/RN Room: 248 The patient's Clinical Indicators include: * Clinical Indicators:"Patient presented with sepsis" per infectious disease documentation. WBC: 14.2 , HR: 95, RR: 20. * Risk Factors: Positive for C. difficile * Treatment: oral vancomycin and IV Flagyl Query created by: Krystina Escamilla on 10/04/2017 1:00 PM RESPONSE TEXT: Sepsis due to C diff received vanco to continue at DC Electronically signed by: Genny Turcios MD 10/05/2017 7:28 PM
== END 2017-10-05 14:39 | disposition home health service (06) | DRG 871 ==
LOC: NEPC 15:37 → NEDA 17:38 → HCIS 19:48 → N07A 10-04 21:47
PROVIDERS: ADMIT Hospitalist; ATTEND Hospitalist
PROC: 05H533Z Insertion of Infusion Device into Right Subclavian Vein, Percutaneous Approach (ICD-10-PCS; principal; 2017-09-30)
PROC: B516ZZA Fluoroscopy of Right Subclavian Vein, Guidance (ICD-10-PCS; 2017-09-30)
PROC: 5A1D70Z Performance of Urinary Filtration, Intermittent, Less than 6 Hours Per Day (ICD-10-PCS; 2017-09-30)
DX: A41.4 Sepsis due to anaerobes (principal); N17.0 Acute kidney failure with tubular necrosis; A04.72 Enterocolitis due to Clostridium difficile, not specified as recurrent; E87.1 Hypo-osmolality and hyponatremia; J98.11 Atelectasis; Z86.73 Personal history of transient ischemic attack (TIA), and cerebral infarction without residual deficits; I10 Essential (primary) hypertension; F03.90 Unspecified dementia, unspecified severity, without behavioral disturbance, psychotic disturbance, mood disturbance, and anxiety; E78.5 Hyperlipidemia, unspecified; E86.0 Dehydration; E83.41 Hypermagnesemia; E87.6 Hypokalemia; R06.6 Hiccough; Z72.0 Tobacco use; Z79.82 Long term (current) use of aspirin; Z96.651 Presence of right artificial knee joint
CPT/HCPCS: 36556; 36600; 71045; 74176; 76775; 76937; 77001; 80048; 80053; 80069; 80074; 81001; 82550; 82805; 83036; 83605; 83735; 83880; 84100; 84484; 85007; 85025; 85027; 85610; 85730; 87040; 87205; 87328; 87329; 87493; 87506; 90935; 93005; 94150; 96360; 96374; 96375; C1752; J0456; J0696; J0780; J1644; J2550; J7030; J7050; J7120